=== PATIENT | male | born 1945 | race Caucasian/White ===

== ENCOUNTER → 2020-09-07 11:32 | Outpatient (REF) | payer OTHER, SELFPAY ==
--- NOTE | 2020-09-07 11:30 | CA_ITS ---
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 Normal LV systolic function with mild LVH with impaired relaxation filling pattern 2. Mildly dilated left atrium 3. Good repair of the mitral valve 4. Normal RV systolic pressure 5. No pericardial effusion Findings Left Ventricle Normal left ventricular size and systolic function. There is mildly increased left ventricular wall thickness. There is paradoxical septal motion consistent with post-operative status. Spectral Doppler is indicative of an impaired relaxation filling pattern. E/E prime ratio is between 8 and 15 consistent with indeterminate filling pressures. Right Ventricle Normal right ventricular cavity size and systolic function. Atria The left atrium is mildly dilated. There is lipomatous hypertrophy of the interatrial septum. There is no evidence of interatrial shunt. The right atrium is normal in size. Aortic Valve The aortic valve was not well visualized. There is mild thickening of the aortic valve. There is no aortic valve stenosis. There is trace (trivial) aortic valve regurgitation. Mitral Valve There is mild anterior and severe posterior mitral leaflet thickening. The posterior mitral leaflet is immobile. There is trace mitral valve regurgitation. There is no mitral valve stenosis. posterior leaflet was dissected in the past and findings are consistent with prior resection. Overall mitral valve repair appears good Pulmonic Valve The pulmonic valve was not well visualized. Tricuspid Valve Likely normal tricuspid valve structure and function. There is trace tricuspid valve regurgitation. The right ventricular systolic pressure is normal. There is no evidence of pulmonary hypertension. Great Vessels All visible segments of the aorta are normal in size. The pulmonary artery was not well visualized. Venous The inferior vena cava is normal in size and collapses greater than 50% with inspiration. Pericardium/Pleural There is no evidence of pericardial effusion. Prior Study Comparison No significant change compared to prior study dated: 09/03/2019. Measurements 2D Linear Measurements IVSd: 1.22 0.6-0.9/0.6-1.0 cm LVIDd: 3.92 3.9-5.3/4.2-5.9 cm LVIDd Index: 1.78 2.4-3.2/2.2-3.1 cm/m2 LVIDs: 2.58 2.0-3.6 cm LVPWd: 1.33 0.7-1.1 cm Ao Root: 3.30 2.1-3.5 cm LA Diam: 4.30 2.7-3.8/3.0-4.0 cm LAIDs Index: 1.95 1.5-2.3 cm/m2 LV Mass: 219.03 67-162/88-224 g LV Mass Index: 99.56 43-95/49-115 g/m2 LVOT Diam: 2.00 3.0+(-)1.3 cm 2D Systolic Function EF 4C: 66.00 >55% EF 2C: 53.80 >55% EF BiP: 60.20 >55% Mitral Valve MV Pk E: 0.93 MV PK A: 1.18 MV Decel Time: 333.00 E/A: 0.80 E'Lateral: 7.16 E'Medial: 4.25 E/E' Med: 21.90 E/E' Lat: 13.00 PHT: 97.00 MVA PHT: 2.27 Decel [place]: 2.80 Aortic Valve AoV Pk Edward: 1.22 AoV Pk Grad: 6.00 AI Pk Edward: 4.11 AI [place]: 1.34 LVOT LVOT Pk Edward: 0.78 LVOT Mn Edward: 0.59 LVOT VTI: 0.18 LVOT Pk Grad: 2.00 LVOT Mn Grad: 2.00 LVOT Diam: 2.00 LVOT Area: 3.14 Diastolic Function MV Pk E: 0.93 MV Pk A: 1.18 E/A: 0.80 E'Medial: 4.25 E/E' Med: 21.90 E' Laterial: 7.16 E/E' Lat: 13.00 Tricuspid Valve TR Pk Edward: 2.86 TR Pk Grad: 33.00 RA Press: 3.00 RVSP: 36.00 Great Vessels Aorta Ao Root-2D: 3.30 2.0-3.7 cm Ao Asc: 3.70 2.1-3.4 cm Updated in Other Vendor System with Status of Final Seven Alejandro MD electronically signed on 09/09/2020 11:31:25 AM with status of Final
== END ==
LOC: HO.CARD 11:32
PROVIDERS: PCP Internal Medicine; Visit Provider Internal Medicine Cardiovascular Disease
DX: I34.1 Nonrheumatic mitral (valve) prolapse (principal); I11.9 Hypertensive heart disease without heart failure
CPT/HCPCS: 93306

== ENCOUNTER → 2020-09-20 14:12 | Outpatient (BNVA) | payer OTHER, SELFPAY | PROVIDERS: PCP Internal Medicine; Referring Provider Internal Medicine; Visit Provider Internal Medicine Cardiovascular Disease | DX: I10 Essential (primary) hypertension (principal); Z95.2 Presence of prosthetic heart valve; Z79.82 Long term (current) use of aspirin | CPT/HCPCS: 93005 ==

== ENCOUNTER → 2021-07-18 08:43 | Outpatient (BNVA) | payer OTHER, SELFPAY | PROVIDERS: PCP Internal Medicine; Visit Provider Internal Medicine Cardiovascular Disease | DX: R09.89 Other specified symptoms and signs involving the circulatory and respiratory systems (principal); Z98.890 Other specified postprocedural states | CPT/HCPCS: 93005 ==

== ENCOUNTER → 2021-08-03 09:05 | Outpatient (BNVA) | payer OTHER, SELFPAY | PROVIDERS: PCP Physician Assistant Medical; Referring Provider Physician Assistant Medical; Visit Provider Internal Medicine Cardiovascular Disease ==

== ENCOUNTER 2021-08-11 07:46 | Outpatient (REF) | payer OTHER, SELFPAY ==
--- NOTE | ~2021-08-11 | US_ITS ---
EXAMINATION: US RETROPERITONEAL LIMITED (RENAL ONLY) US RENAL DOPPLER CLINICAL INFORMATION: Hypertension. Rule out renal artery stenosis. COMPARISON: None TECHNIQUE: Doppler, color and grayscale evaluation of the kidneys including waveform spectral analysis of the renal arteries. FINDINGS: RIGHT KIDNEY: 10.9 x 4.4 x 4.1 cm (SAG x AP x TRV). The kidney is normal in size, contour, and echogenicity. Renal cortical thickness is normal. There is a small 4 mm cyst in the upper pole. There is a 1 mm echogenic focus with twinkle artifact in the mid pole questionable for a tiny stone. No hydronephrosis. LEFT KIDNEY: 10.5 x 5.6 x 5 cm (SAG x AP x TRV). The kidney is normal in size, contour, and echogenicity. Renal cortical thickness is normal. No calculi or focal parenchymal lesions. No hydronephrosis. There is an arrhythmia. The visualized mid abdominal aorta is normal in caliber and demonstrates normal peak velocity of 89 cm/s. The right renal artery is patent. Right renal artery peak systolic velocities are normal measuring 127, 66 and 53 cm/s proximally, in the mid portion and distally. Right renal artery to aorta ratio is normal measuring 1.4. Resistive indices in the segmental renal arteries in the right kidney are normal measuring 0.7-0.8. The right renal vein is patent. The left renal artery is patent. Left renal artery peak systolic velocities are normal measuring 65, 80 and 62 cm/s proximally, in the mid portion and distally. Left renal artery to aorta ratio is normal measuring 0.9. Resistive indices in the segmental left renal arteries are normal measuring 0.7-0.8. The left renal vein is patent. US/US renal doppler IMPRESSION: Small right renal cyst and question tiny right renal stone. Otherwise, normal renal ultrasound. Normal renal Doppler exam. No evidence of renal artery stenosis.
--- NOTE | ~2021-08-11 | US_ITS ---
EXAMINATION: US RETROPERITONEAL LIMITED (RENAL ONLY) US RENAL DOPPLER CLINICAL INFORMATION: Hypertension. Rule out renal artery stenosis. COMPARISON: None TECHNIQUE: Doppler, color and grayscale evaluation of the kidneys including waveform spectral analysis of the renal arteries. FINDINGS: RIGHT KIDNEY: 10.9 x 4.4 x 4.1 cm (SAG x AP x TRV). The kidney is normal in size, contour, and echogenicity. Renal cortical thickness is normal. There is a small 4 mm cyst in the upper pole. There is a 1 mm echogenic focus with twinkle artifact in the mid pole questionable for a tiny stone. No hydronephrosis. LEFT KIDNEY: 10.5 x 5.6 x 5 cm (SAG x AP x TRV). The kidney is normal in size, contour, and echogenicity. Renal cortical thickness is normal. No calculi or focal parenchymal lesions. No hydronephrosis. There is an arrhythmia. The visualized mid abdominal aorta is normal in caliber and demonstrates normal peak velocity of 89 cm/s. The right renal artery is patent. Right renal artery peak systolic velocities are normal measuring 127, 66 and 53 cm/s proximally, in the mid portion and distally. Right renal artery to aorta ratio is normal measuring 1.4. Resistive indices in the segmental renal arteries in the right kidney are normal measuring 0.7-0.8. The right renal vein is patent. The left renal artery is patent. Left renal artery peak systolic velocities are normal measuring 65, 80 and 62 cm/s proximally, in the mid portion and distally. Left renal artery to aorta ratio is normal measuring 0.9. Resistive indices in the segmental left renal arteries are normal measuring 0.7-0.8. The left renal vein is patent. US/US renal BI IMPRESSION: Small right renal cyst and question tiny right renal stone. Otherwise, normal renal ultrasound. Normal renal Doppler exam. No evidence of renal artery stenosis.
== END 2021-08-11 07:47 | disposition home or self-care (01) ==
LOC: HO.US 07:46
PROVIDERS: PCP Physician Assistant Medical; Visit Provider Internal Medicine Cardiovascular Disease
DX: R09.89 Other specified symptoms and signs involving the circulatory and respiratory systems (principal)
CPT/HCPCS: 76775; 93975

== ENCOUNTER → 2021-08-23 12:57 | Outpatient (REF) | payer OTHER, SELFPAY ==
--- NOTE | 2021-08-23 | CA_ITS ---
Transthoracic Echocardiogram Patient (Last, First, Middle): Obinna Gonzalez N Gender: Male Date of : 1945 Age: 75 Procedure Date: 08/23/2021 Procedure Type: Transthoracic Echocardiogram Location: OP Height: 187.96 cm Weight: 88.91 kg BSA: 2.15 m2 Heart Rate: bpm BP: 148 / 82 mmHg Tool Programmer: DSIvonne Referring MD: Seven Alejandro MD Symptoms: OTHER SPEC. POSTPROCEDURAL STATES, MITRAL VALVE REPAIR Study Quality: Fair ECG Rhythm: Sinus Conclusions: - The left ventricular systolic function is normal. The visually estimated ejection fraction is between 65-70%. - There is mildly decreased right ventricular systolic function. - Status post mitral valve repair with normal valvular function. - There is mild dilatation of the ascending aorta measuring 4.00 cm. Findings Left Ventricle Normal left ventricular cavity size. There is mildly increased left ventricular wall thickness. The left ventricular systolic function is normal. The visually estimated ejection fraction is between 65-70%. There is no evidence of regional wall motion abnormalities. Diastolic function is indeterminate on the basis of available data. Right Ventricle Normal right ventricular cavity size. There is mildly decreased right ventricular systolic function. TAPSE 1.56cm. Atria Both atria are normal in size. Aortic Valve There is a normal trileaflet aortic valve. There is no aortic valve stenosis. Trace to mild aortic regurgitation. Mitral Valve There is trace mitral valve regurgitation. There is no mitral valve stenosis. Status post mitral valve repair. Pulmonic Valve The pulmonic valve was not well visualized. Tricuspid Valve There is trace tricuspid valve regurgitation. The pulmonary artery systolic pressure is normal. Great Vessels There is mild dilatation of the ascending aorta measuring 4.00 cm. Venous The inferior vena cava is normal in size and collapses greater than 50% with inspiration. Pericardium/Pleural There is no evidence of pericardial effusion. Prior Study Comparison Changes noted compared to prior study dated: 09/07/2020. See comments on ascending aorta. Slight increase in size. Measurements 2D Linear Measurements IVSd: 1.22 0.6-0.9/0.6-1.0 cm LVIDd: 3.59 3.9-5.3/4.2-5.9 cm LVIDd Index: 1.67 2.4-3.2/2.2-3.1 cm/m2 LVIDs: 2.33 2.0-3.6 cm LVPWd: 1.20 0.7-1.1 cm Ao Root: 3.50 2.1-3.5 cm LA Diam: 3.10 2.7-3.8/3.0-4.0 cm LAIDs Index: 1.44 1.5-2.3 cm/m2 LV Mass: 177.65 67-162/88-224 g LV Mass Index: 82.63 43-95/49-115 g/m2 LVOT Diam: 2.10 3.0+(-)1.3 cm 2D Systolic Function EF 4C: 64.30 >55% EF 2C: 59.70 >55% EF BiP: 62.00 >55% Mitral Valve MV Pk E: 0.84 MV PK A: 1.18 MV Decel Time: 282.00 E/A: 0.70 E'Lateral: 6.42 E'Medial: 4.57 E/E' Med: 18.40 E/E' Lat: 13.10 PHT: 83.00 MVA PHT: 2.65 Decel [place]: 2.98 Aortic Valve AoV Pk Edward: 1.14 AoV Pk Grad: 5.00 AI Pk Edward: 4.33 AI [place]: 2.05 LVOT LVOT Pk Edward: 0.92 LVOT Mn Edward: 0.64 LVOT VTI: 0.18 LVOT Pk Grad: 3.00 LVOT Mn Grad: 2.00 LVOT Diam: 2.10 LVOT Area: 3.46 Diastolic Function MV Pk E: 0.84 MV Pk A: 1.18 E/A: 0.70 E'Medial: 4.57 E/E' Med: 18.40 E' Laterial: 6.42 E/E' Lat: 13.10 Right Ventricle TAPSE (mm): 1.61 Tricuspid Valve TR Pk Edward: 2.10 TR Pk Grad: 18.00 RA Press: 3.00 RVSP: 21.00 Great Vessels Aorta Ao Root-2D: 3.50 2.0-3.7 cm Ao Asc: 4.00 2.1-3.4 cm Updated in Other Vendor System with Status of Final Tani Alcantara MD electronically signed on 08/25/2021 11:51:35 AM with status of Final
== END ==
LOC: HO.CARD 12:57
PROVIDERS: Visit Provider Internal Medicine Cardiovascular Disease
DX: Z98.890 Other specified postprocedural states (principal)
CPT/HCPCS: 93306

== ENCOUNTER → 2021-08-31 09:26 | Outpatient (BNVA) | payer OTHER, SELFPAY | PROVIDERS: PCP Physician Assistant Medical; Referring Provider Physician Assistant Medical; Visit Provider Internal Medicine Cardiovascular Disease ==

== ENCOUNTER → 2022-08-30 10:13 | Outpatient (REF) | payer OTHER, SELFPAY ==
--- NOTE | 2022-08-30 10:16 | CA_ITS ---
Transthoracic Echocardiogram Patient (Last, First, Middle): Obinna Gonzalez N Gender: Male Date of : 1945 Age: 76 Procedure Date: 08/30/2022 Procedure Type: Transthoracic Echocardiogram Location: OP Height: 187.96 cm Weight: 98.88 kg BSA: 2.25 m2 Heart Rate: bpm BP: 162 / 94 mmHg Aging Box Hand: JAREN Referring MD: Seven Alejandro MD Continuous Yarn Dyeing Machine Operator: Seven Alejandro MD Symptoms: Z98.890 - Other specified postprocedural states Study Quality: Adequate ECG Rhythm: Sinus Conclusions: - 1. Normal LV systolic function with impaired relaxation filling pattern next 2. Trivial aortic regurgitation 3. Good mitral valve repair 4. Normal RV systolic pressure 5. Mildly dilated ascending aorta at 4.1 cm 6. No gross pericardial effusion Findings Left Ventricle Normal left ventricular size, thickness, and systolic function. The visually estimated ejection fraction is between 55-60%. There is paradoxical septal motion consistent with post-operative status. Spectral Doppler is indicative of an impaired relaxation filling pattern. Right Ventricle Normal right ventricular cavity size. There is mildly decreased right ventricular systolic function. Atria The left atrium is likely dilated. There is no evidence of interatrial shunt. The right atrium is normal in size. Aortic Valve Normal aortic valve structure and function. There is no aortic valve stenosis. There is trace (trivial) aortic valve regurgitation. Mitral Valve There is mild anterior and severe posterior mitral leaflet thickening. The posterior mitral leaflet is immobile. There is trace mitral valve regurgitation. There is no mitral valve stenosis. possible mitral annuloplasty ring in place. The posterior leaflet is taken and immobilize suggestive of prior repair. Overall mitral valve repair appears to be good Pulmonic Valve The pulmonic valve is likely normal. Tricuspid Valve Normal tricuspid valve structure. There is trace tricuspid valve regurgitation. The right ventricular systolic pressure is normal. The right ventricular systolic pressure is 11 mmHg. Normal right atrial pressure. There is no evidence of pulmonary hypertension. Great Vessels There is mild dilatation of the ascending aorta. Venous The inferior vena cava is normal in size and collapses greater than 50% with inspiration. Pericardium/Pleural There is no evidence of pericardial effusion. Prior Study Comparison No significant change compared to prior study dated: 08/23/2021. Measurements 2D Linear Measurements IVSd: 1.23 0.6-0.9/0.6-1.0 cm LVIDd: 4.25 3.9-5.3/4.2-5.9 cm LVIDd Index: 1.89 2.4-3.2/2.2-3.1 cm/m2 LVIDs: 2.85 2.0-3.6 cm LVPWd: 1.25 0.7-1.1 cm LA Diam: 2.90 2.7-3.8/3.0-4.0 cm LAIDs Index: 1.29 1.5-2.3 cm/m2 LV Mass: 237.18 67-162/88-224 g LV Mass Index: 105.41 43-95/49-115 g/m2 LVOT Diam: 2.20 3.0+(-)1.3 cm 2D Systolic Function EF 4C: 56.50 >55% EF 2C: 49.80 >55% Mitral Valve MV VTI: 0.46 MV Pk Edward: 1.34 MV Mn Edward: 0.82 MV Pk Grad: 7.00 MV Mn Grad: 3.00 MV Pk E: 1.09 MV PK A: 1.18 MV Decel Time: 296.00 E/A: 0.90 E'Lateral: 6.83 E'Medial: 4.05 E/E' Med: 26.90 E/E' Lat: 16.00 PHT: 87.00 MVA PHT: 2.53 MVA Continuity: 2.16 Decel [place]: 3.70 Aortic Valve AoV Pk Edward: 1.03 AoV Mn Edward: 0.67 AoV VTI: 0.27 AoV Pk Grad: 4.00 Aov Mn Grad: 2.00 YASMANY Cont.VTI: 3.65 AI Pk Edward: 4.21 AI [place]: 2.25 LVOT LVOT Pk Edward: 0.96 LVOT Mn Edward: 0.60 LVOT VTI: 0.26 LVOT Pk Grad: 4.00 LVOT Mn Grad: 2.00 LVOT Diam: 2.20 LVOT Area: 3.80 Diastolic Function MV Pk E: 1.09 MV Pk A: 1.18 E/A: 0.90 E'Medial: 4.05 E/E' Med: 26.90 E' Laterial: 6.83 E/E' Lat: 16.00 Right Ventricle TAPSE (mm): 15.20 TVS' Edward: 7.80 Tricuspid Valve TR Pk Edward: 1.43 TR Pk Grad: 8.00 RA Press: 3.00 RVSP: 11.00 Great Vessels Aorta Sinus of Valsalva: 3.86 2.0-3.[address] [place]: 3.31 1.7-3.4 cm Ao Asc: 4.10 2.1-3.4 cm Updated in Other Vendor System with Status of Final Seven Alejandro MD electronically signed on 08/31/2022 10:52:43 AM with status of Final
== END ==
LOC: HO.CARD 10:13
PROVIDERS: Visit Provider Internal Medicine Cardiovascular Disease
DX: I71.20 Thoracic aortic aneurysm, without rupture, unspecified (principal); Z98.890 Other specified postprocedural states
CPT/HCPCS: 93306

== ENCOUNTER → 2022-10-03 10:08 | Outpatient (BNVA) | payer OTHER, SELFPAY | PROVIDERS: PCP Physician Assistant Medical; Referring Provider Physician Assistant Medical; Visit Provider Internal Medicine Cardiovascular Disease | DX: I10 Essential (primary) hypertension (principal); I71.20 Thoracic aortic aneurysm, without rupture, unspecified; R09.89 Other specified symptoms and signs involving the circulatory and respiratory systems | CPT/HCPCS: 93005 ==

== ENCOUNTER → 2023-09-04 12:19 | Outpatient (REF) | payer OTHER, SELFPAY ==
--- NOTE | 2023-09-04 12:23 | CA_ITS ---
Transthoracic Echocardiogram Patient (Last, First, Middle): Obinna Gonzalez N Gender: Male Date of : 1945 Age: 77 Procedure Date: 09/04/2023 Procedure Type: Transthoracic Echocardiogram Location: OP Height: 187.96 cm Weight: 107.96 kg BSA: 2.34 m2 Heart Rate: 69 bpm BP: 158 / 80 mmHg Pinball Machine Repairer: SB Referring MD: Seven Alejandro MD Surgical Aide: Seven Alejandro MD Symptoms: s/p Mitral valve repair Study Quality: Adequate ECG Rhythm: Sinus Conclusions: - 1. Normal LV ejection fraction 55-60% with impaired relaxation filling pattern 2. Mildly dilated left atrium 3. Good mitral valve repair 4. Mildly dilated ascending aorta at 4.1 cm with mild aortic regurgitation 5. Normal RV systolic pressure 6. No gross pericardial effusion Findings Left Ventricle Normal left ventricular size and systolic function. The visually estimated ejection fraction is between 55-60%. There is paradoxical septal motion consistent with post-operative status. Spectral Doppler is indicative of an impaired relaxation filling pattern. There is mild septal asymmetric hypertrophy. Right Ventricle Normal right ventricular cavity size and systolic function. Atria The left atrium is mildly dilated. There is no evidence of interatrial shunt. The right atrium is normal in size. Aortic Valve Normal aortic valve structure and function. There is no aortic valve stenosis. There is mild aortic valve regurgitation. Mitral Valve There is severe posterior mitral leaflet thickening. The posterior mitral leaflet is immobile. There is no mitral valve regurgitation. There is no mitral valve stenosis. good mitral valve repair Pulmonic Valve The pulmonic valve is likely normal. Tricuspid Valve Normal tricuspid valve structure. There is trace tricuspid valve regurgitation. The right ventricular systolic pressure is normal. The right ventricular systolic pressure is 28 mmHg. Normal right atrial pressure. There is no evidence of pulmonary hypertension. Great Vessels The pulmonary artery was not well visualized. There is mild dilatation of the ascending aorta measuring 4.10 cm. Venous The inferior vena cava is normal in size and collapses greater than 50% with inspiration. Pericardium/Pleural There is no evidence of pericardial effusion. Prior Study Comparison No significant change compared to prior study dated: 08/30/2022. Measurements 2D Linear Measurements IVSd: 1.56 0.6-0.9/0.6-1.0 cm LVIDd: 3.43 3.9-5.3/4.2-5.9 cm LVIDd Index: 1.47 2.4-3.2/2.2-3.1 cm/m2 LVIDs: 2.64 2.0-3.6 cm LVPWd: 1.05 0.7-1.1 cm LA Diam: 4.00 2.7-3.8/3.0-4.0 cm LAIDs Index: 1.71 1.5-2.3 cm/m2 LV Mass: 187.20 67-162/88-224 g LV Mass Index: 80.00 43-95/49-115 g/m2 LVOT Diam: 2.20 3.0+(-)1.3 cm 2D Systolic Function EF 4C: 48.10 >55% EF 2C: 55.00 >55% Mitral Valve MV VTI: 0.33 MV Pk Edward: 1.05 MV Mn Edward: 0.66 MV Pk Grad: 4.00 MV Mn Grad: 2.00 MV Pk E: 0.84 MV PK A: 1.10 MV Decel Time: 306.00 E/A: 0.80 E'Lateral: 6.31 E'Medial: 4.68 E/E' Med: 17.90 E/E' Lat: 13.30 PHT: 90.00 MVA PHT: 2.44 MVA Continuity: 2.09 Decel [place]: 2.74 Aortic Valve AoV Pk Edward: 1.13 AoV Pk Grad: 5.00 [place]: 3.37 AI Pk Edward: 4.25 AI [place]: 2.23 LVOT LVOT Pk Edward: 0.92 LVOT Mn Edward: 0.65 LVOT VTI: 0.18 LVOT Pk Grad: 3.00 LVOT Mn Grad: 2.00 LVOT Diam: 2.20 LVOT Area: 3.80 Diastolic Function MV Pk E: 0.84 MV Pk A: 1.10 E/A: 0.80 E'Medial: 4.68 E/E' Med: 17.90 E' Laterial: 6.31 E/E' Lat: 13.30 Right Ventricle TAPSE (mm): 19.90 TVS' Edward: 11.60 Tricuspid Valve TR Pk Edward: 2.52 TR Pk Grad: 25.00 RA Press: 3.00 RVSP: 28.00 Great Vessels Aorta Sinus of Valsalva: 3.70 2.0-3.5 cm Ao Asc: 4.10 2.1-3.4 cm Pulmonary Valve PV Pk Edward: 0.86 Peak PV Grad: 3.00 Updated in Other Vendor System with Status of Final Seven Alejandro MD electronically signed on 09/04/2023 3:09:04 PM with status of Final
== END ==
LOC: HO.CARD 12:19
PROVIDERS: PCP Physician Assistant Medical; Visit Provider Internal Medicine Cardiovascular Disease
DX: Z98.890 Other specified postprocedural states (principal)
CPT/HCPCS: 93306

== ENCOUNTER → 2023-09-04 12:23 | Outpatient (BNV) | payer OTHER, SELFPAY | PROVIDERS: PCP Physician Assistant Medical; Visit Provider Internal Medicine Cardiovascular Disease | DX: I34.89 Other nonrheumatic mitral valve disorders (principal); Z98.890 Other specified postprocedural states | CPT/HCPCS: 93306 ==

== ENCOUNTER 2023-09-24 10:39 | Outpatient (AMB) | payer OTHER, SELFPAY ==
--- NOTE | 2023-09-24 10:48 | A.OFFVIS_ITS ---
Intake Vital Signs 09/24/23 10:49 Height 6 ft 2 in Weight 233 lb 11.04 oz BMI 30.0 BP 140/70 H Blood Pressure Location Lt brachial Position Sitting Pulse 68 Intake Visit Reasons: 1 yr s/p echo Intake Note: 1 year follow-up with ekg after echo was having some high bp and chest pain in Jun pcp order stress echo at [facility] feeling better Water Superintendent Required: No Allergies No Known Drug Allergies [NO KNOWN DRUG ALLERGIES] Allergy (Unknown, Unverified 07/21/20 17:09) NONE Medication List - Last Reconciled 09/24/23 by Seven Alejandro MD aspirin (Adult Low Dose Aspirin) 81 mg PO DAILY hydrochlorothiazide 12.5 mg PO DAILY lisinopril 30 mg PO DAILY lisinopril 40 mg PO DAILY metoprolol succinate ER 50 mg PO DAILY nifedipine ER 30 mg PO DAILY HPI HPI Comments History of Present Illness Details Obinna comes for follow-up. Recently was having issue with blood pressure control. Also was having left thoracic cage pain. Underwent a stress echocardiogram at outside facility with at low to moderate workload was negative for ischemia. Patient subsequently had uptitration of his lisinopril dose and subsequently addition of nifedipine. This has led to better blood pressure control. He remains active. Recent echocardiogram shows normal LV systolic function with good mitral valve repair and mild ascending aortic aneurysm. Taking all his medications regularly. [facility] Medical History (Updated 10/03/22 @ 10:48 by Seven Alejandro MD) Ascending aortic aneurysm Labile blood pressure Postoperative atrial fibrillation Mitral regurgitation Mitral valve prolapse HTN (hypertension) Surgical History H/O mitral valve repair Family History Father No problems noted. Mother No problems noted. Patient Tobacco Use Status: Former Tobacco user Review of Systems Const Denies chills, Denies fatigue, Denies fever(s), Denies frequent falls, Denies weakness, Denies weight gain and Denies weight loss ENT Denies dizziness Card Denies chest pain, Denies leg edema, Denies lightheadedness, Denies palpitations, Denies dyspnea, Denies dyspnea on exertion, Denies orthopnea and Denies other (loss of consciousness) Resp Denies cough, Denies dyspnea and Denies dyspnea on exertion GI Denies hematochezia and Denies change in stool character Musc Denies abnormal gait, Denies muscle weakness, Denies numbness, Denies radiating pain into limb and Denies tingling Neuro Denies abnormal gait, Denies dizziness, Denies frequent falls, Denies numbness, Denies tingling and Denies weakness Endo Denies fatigue and Denies palpitations Physical Exam Vital Signs: Last Vital Signs Pulse 68 09/24/23 10:49 BP 140/70 H 09/24/23 10:49 BMI result Body Mass Index 30.0 Const General: cooperative, comfortable, no acute distress, alert and awake Nutritional Appearance: overweight Orientation/consciousness: patient oriented x3 Limitations: no limitations HEENT Head: Yes normal to inspection, Yes normocephalic and Yes atraumatic Eyes General: appearance normal, both eyes and all related structures Neck Neck: Yes full ROM, Yes trachea midline, Yes supple and Yes no JVD Chest Chest palpation & inspection: abnormal inspection of the chest funnel chest (pectus excavatum) Resp Effort & Inspection: normal respiratory effort Auscultation: clear to auscultation bilaterally Cardio Jugular venous distension: no JVD Palpation: normal PMI Rate: regular rate Rhythm: regular rhythm Heart sounds: S1 normal heart sound present and S2 normal heart sound present Peripheral pulses: Peripheral pulses 2+ throughout GI Auscultation: normal bowel sounds Skin General skin exam: no rashes or lesions noted Neuro General: patient oriented x3 and no focal motor deficits Extrem General: Yes no clubbing, cyanosis or edema Psych Appearance: grossly normal Affect: Anxious affect present Office Procedures EKG Details: EKG shows normal sinus rhythm first-degree AV block with LVH with repolarization abnormality [id number], Complete Assessment & Plan Assessment & Plan (1) H/O mitral valve repair: Comment: Posterior mitral leaflet resection with annular ring for severe mitral valve prolapse and severe regurgitation. Code(s): Z98.890 - Other specified postprocedural states Plan: Patient with good mitral valve repair, remote. Repair is looking good. Continue aggressive risk factor modification. Continue aspirin therapy. SBE prophylaxis as per ACC/aha guidelines. (2) Ascending aortic aneurysm: Comment: 4 cm by echocardiogram August 2021 Code(s): I71.2 - Thoracic aortic aneurysm, without rupture Plan: Ascending aortic aneurysm which has remained stable. No interventions required per se for the same. Continue aggressive blood pressure control. Continue monitor by echocardiogram on annual basis. Avoidance of sudden strenuous isometric exercise was discussed. (3) HTN (hypertension): Code(s): I10 - Essential (primary) hypertension Plan: Hypertension is not well optimized on current therapy with addition of nifedipine. Continue the same. Importance of good blood pressure control was discussed advised low-salt diet. Advised stress mitigation strategies. Advised to monitor blood pressure at home maintain a log. Goal blood pressure less than 130/84. Will follow up in the clinic in 1 year's time, sooner p.r.n.. Thank you for allowing me to partake in his care Orders: Orders CA echo transthoracic complete 50 Weeks Z98.890 - Other specified postprocedural states Coding Level of Care Code Est Pt Level 4 (49647) Diagnoses H/O mitral valve repair Z98.890 Ascending aortic aneurysm I71.2 HTN (hypertension) I10 CPT Codes EKG - CPT: 36399-[id number], Complete ([id number])
[2023-09-24 10:49] VITALS: BP 140/70; PULSE 68
== END 2023-09-24 11:26 | disposition home or self-care (01) ==
PROVIDERS: Visit Provider Internal Medicine Cardiovascular Disease
DX: Z98.890 Other specified postprocedural states (principal); I71.20 Thoracic aortic aneurysm, without rupture, unspecified; I10 Essential (primary) hypertension
CPT/HCPCS: 93010; 99214

== ENCOUNTER → 2023-09-24 10:39 | Outpatient (BNVA) | payer OTHER, SELFPAY | PROVIDERS: Visit Provider Internal Medicine Cardiovascular Disease | DX: I71.20 Thoracic aortic aneurysm, without rupture, unspecified (principal); I10 Essential (primary) hypertension; Z98.890 Other specified postprocedural states | CPT/HCPCS: 93005 ==

== ENCOUNTER → 2024-09-04 10:40 | Outpatient (REF) | payer OTHER, SELFPAY ==
--- NOTE | 2024-09-04 10:43 | CA_ITS ---
Transthoracic Echocardiogram Patient (Last, First, Middle): Obinna Gonzalez N Gender: Male Date of : 1945 Age: 78 Procedure Date: 09/04/2024 Procedure Type: Transthoracic Echocardiogram Location: OP Height: 187. cm Weight: 104.33 kg BSA: 2.30 m2 Heart Rate: bpm BP: 148 / 90 mmHg Ropewalk Rope Maker: PRECIOUS Referring MD: Seven Alejandro MD Symptoms: Z98.890 - Other specified postprocedural states Study Quality: Fair ECG Rhythm: Sinus Conclusions: - The left ventricular systolic function is normal. The calculated ejection fraction is 59% by biplane method. - s/p mitral valve repair. Normal valve function. - There is mild aortic valve regurgitation. - There is mild dilatation of the ascending aorta measuring 4.10 cm. Findings Left Ventricle Normal left ventricular cavity size. There is mildly increased left ventricular wall thickness. The left ventricular systolic function is normal. The calculated ejection fraction is 59% by biplane method. There is no evidence of regional wall motion abnormalities. Spectral Doppler is indicative of a pseudonormal filling pattern. Right Ventricle Normal right ventricular cavity size. There is normal right ventricular systolic function. Atria Both atria are normal in size. Aortic Valve There is mild calcification of the aortic valve. There is no aortic valve stenosis. There is mild aortic valve regurgitation. Mitral Valve There is trace mitral valve regurgitation. There is no mitral valve stenosis. s/p mitral valve repair. Normal valve function. Pulmonic Valve The pulmonic valve is likely normal. Tricuspid Valve There is mild tricuspid valve regurgitation. There is no evidence of pulmonary hypertension. Great Vessels There is mild dilatation of the ascending aorta measuring 4.10 cm. Top normal ascending aortic size at 3.8cm. Venous The inferior vena cava is normal in size and collapses greater than 50% with inspiration. Pericardium/Pleural There is no evidence of pericardial effusion. Prior Study Comparison No significant change compared to prior study dated: 09/04/2023. Measurements 2D Linear Measurements IVSd: 1.14 0.6-0.9/0.6-1.0 cm LVIDd: 4.37 3.9-5.3/4.2-5.9 cm LVIDd Index: 1.90 2.4-3.2/2.2-3.1 cm/m2 LVIDs: 2.86 2.0-3.6 cm LVPWd: 1.26 0.7-1.1 cm Ao Root: 3.70 2.1-3.5 cm LA Diam: 4.40 2.7-3.8/3.0-4.0 cm LAIDs Index: 1.91 1.5-2.3 cm/m2 LV Mass: 235.91 67-162/88-224 g LV Mass Index: 102.57 43-95/49-115 g/m2 LVOT Diam: 2.10 3.0+(-)1.3 cm 2D Systolic Function EF 4C: 57.70 >55% EF 2C: 60.70 >55% EF BiP: 58.90 >55% Mitral Valve MV VTI: 0.44 MV Pk Edward: 1.22 MV Mn Edward: 0.73 MV Pk Grad: 6.00 MV Mn Grad: 3.00 MV Pk E: 1.32 MV PK A: 1.07 MV Decel Time: 264.00 E/A: 1.20 E'Lateral: 6.85 E'Medial: 4.24 E/E' Med: 31.10 E/E' Lat: 19.30 PHT: 77.00 MVA PHT: 2.86 MVA Continuity: 1.66 Decel [place]: 5.02 Aortic Valve AoV Pk Edward: 1.28 AoV Mn Edward: 1.02 AoV VTI: 0.30 AoV Pk Grad: 7.00 Aov Mn Grad: 5.00 YASMANY Cont.VTI: 2.49 AI Pk Edward: 4.71 AI [place]: 1.66 LVOT LVOT Pk Edward: 0.98 LVOT Mn Edward: 0.72 LVOT VTI: 0.21 LVOT Pk Grad: 4.00 LVOT Mn Grad: 2.00 LVOT Diam: 2.10 LVOT Area: 3.46 Diastolic Function MV Pk E: 1.32 MV Pk A: 1.07 E/A: 1.20 E'Medial: 4.24 E/E' Med: 31.10 E' Laterial: 6.85 E/E' Lat: 19.30 Right Ventricle TAPSE (mm): 15.00 TVS' Edward: 13.00 Tricuspid Valve TR Pk Edward: 1.86 TR Pk Grad: 14.00 RA Press: 3.00 RVSP: 17.00 Great Vessels Aorta Ao Root-2D: 3.70 2.0-3.7 cm Ao Asc: 4.10 2.1-3.4 cm Ao Arch: 3.80 Pulmonary Valve PV Pk Edward: 0.96 Peak PV Grad: 4.00 Updated in Other Vendor System with Status of Final Tain Alcantara MD electronically signed on 09/05/2024 1:57:35 PM with status of Final
== END ==
LOC: HO.CARD 10:40
PROVIDERS: PCP Physician Assistant Medical; Visit Provider Internal Medicine Cardiovascular Disease
DX: Z98.890 Other specified postprocedural states (principal)
CPT/HCPCS: 93306

== ENCOUNTER → 2024-09-04 10:43 | Outpatient (BNV) | payer OTHER, SELFPAY | PROVIDERS: PCP Physician Assistant Medical; Visit Provider Internal Medicine | DX: I35.1 Nonrheumatic aortic (valve) insufficiency (principal); I36.1 Nonrheumatic tricuspid (valve) insufficiency; Z98.890 Other specified postprocedural states | CPT/HCPCS: 93306 ==

== ENCOUNTER 2024-09-28 14:56 | Outpatient (AMB) | payer OTHER, SELFPAY ==
--- NOTE | 2024-09-28 15:03 | A.OFFVIS_ITS ---
Vital Signs 09/28/24 15:04 Height 6 ft 2 in Weight 229 lb 4.492 oz BMI 29.4 BP 148/80 H Blood Pressure Location Lt brachial Position Sitting Pulse 88 Intake Visit Reasons: 1 yr f/up s/p echo Intake Note: 1 year follow-up after echo with ekg heart ok Banking Consultant Required: No Allergies No Known Drug Allergies [NO KNOWN DRUG ALLERGIES] Allergy (Unknown, Unverified 07/21/20 17:09) NONE Medication List - Last Reconciled 09/28/24 by Seven Alejandro MD aspirin (Adult Low Dose Aspirin) 81 mg PO DAILY hydrochlorothiazide 12.5 mg PO DAILY lisinopril 40 mg PO DAILY metoprolol succinate ER 50 mg PO DAILY nifedipine ER 30 mg PO DAILY HPI Comments Details: Obinna comes for follow-up. No obvious cardiac symptoms to report. Recent echocardiogram shows preserved LV ejection fraction with normally functioning mitral valve repair with mildly enlarged thoracic aorta. No change in symptoms. Complain of right upper quadrant discomfort. Has been seen by PCP. An ordered abdominal ultrasound. He said this is bothering him a lot. No fever or chills. No nausea or vomiting. Discussed with him possibly going to emergency room as he appears to be in lot distress related to the pain. He said he will wait for tomorrow. Denies any heart failure symptoms. Denies any lightheadedness, syncope. Blood pressures been well controlled. [facility] Medical History Ascending aortic aneurysm Labile blood pressure Postoperative atrial fibrillation Mitral regurgitation Mitral valve prolapse HTN (hypertension) Surgical History H/O mitral valve repair Family History Father No problems noted. Mother No problems noted. Social History Patient Tobacco Use Status: Former Tobacco user Review of Systems Const Denies chills, Denies fatigue, Denies fever(s), Denies frequent falls, Denies weakness, Denies weight gain and Denies weight loss ENT Denies dizziness Card Denies chest pain, Denies leg edema, Denies lightheadedness, Denies palpitations, Denies dyspnea, Denies dyspnea on exertion, Denies orthopnea and Denies other (loss of consciousness) Resp Denies cough, Denies dyspnea and Denies dyspnea on exertion GI Denies hematochezia and Denies change in stool character Musc Denies abnormal gait, Denies muscle weakness, Denies numbness, Denies radiating pain into limb and Denies tingling Neuro Denies abnormal gait, Denies dizziness, Denies frequent falls, Denies numbness, Denies tingling and Denies weakness Endo Denies fatigue and Denies palpitations Physical Exam Vital Signs: Last Vital Signs Pulse 88 09/28/24 15:04 BP 148/80 H 09/28/24 15:04 BMI result Body Mass Index 29.4 Const General: cooperative, comfortable, no acute distress, alert and awake Nutritional Appearance: overweight Orientation/consciousness: patient oriented x3 Limitations: no limitations HEENT Head: Yes normal to inspection, Yes normocephalic and Yes atraumatic Eyes General: appearance normal, both eyes and all related structures Neck Neck: Yes full ROM, Yes trachea midline, Yes supple and Yes no JVD Chest Chest palpation & inspection: abnormal inspection of the chest funnel chest (pectus excavatum) Resp Effort & Inspection: normal respiratory effort Auscultation: clear to auscultation bilaterally Cardio Jugular venous distension: no JVD Palpation: normal PMI Rate: regular rate Rhythm: regular rhythm Heart sounds: S1 normal heart sound present and S2 normal heart sound present Peripheral pulses: Peripheral pulses 2+ throughout GI Auscultation: normal bowel sounds Skin General skin exam: no rashes or lesions noted Neuro General: patient oriented x3 and no focal motor deficits Extrem General: Yes no clubbing, cyanosis or edema Psych Appearance: grossly normal Affect: Anxious affect present Office Procedures EKG Details: EKG shows normal sinus rhythm with first-degree AV block with LVH nonspecific ST T wave changes [id number], Complete Assessment & Plan Assessment & Plan (1) H/O mitral valve repair: Comment: Posterior mitral leaflet resection with annular ring for severe mitral valve prolapse and severe regurgitation. Code(s): Z98.890 - Other specified postprocedural states Category: Surgical Plan: History of mitral valve repair for severe mitral valve prolapse and regurgitation. Has done very well over many years. Continue SBE prophylaxis as per ACC/aha guidelines. Continue low-dose aspirin therapy. Continue aggressive risk factor modification. Follow-up echocardiogram in 1 year's time. (2) Ascending aortic aneurysm: Comment: 4 cm by echocardiogram August 2021 Code(s): I71.2 - Thoracic aortic aneurysm, without rupture Category: Medical Plan: Mild thoracic aortic aneurysm at 4.1 cm. No significant change in size. Does not require any intervention from surgical perspective. Continue aggressive medical intervention with aggressive blood pressure control. Currently well o ptimized on metoprolol, nifedipine, lisinopril hydrochlorothiazide therapy. Goal blood pressure less than 130/84. Advised to avoid sudden strenuous isometric exercise. Continue to maintain aggressive lifestyle modification with regular physical activity and weight loss program. Measure blood pressure at home maintain a log. Will follow up in the clinic in 1 year's time, sooner p.r.n.. Thank you for allowing me to partake in his care Orders: Orders CA echo transthoracic complete 1 Year Z98.890 - Other specified postprocedural states Coding Level of Care Code Est Pt Level 4 (07896) Complex EM visit Add On G2211 Diagnoses H/O mitral valve repair Z98.890 Ascending aortic aneurysm I71.2 CPT Codes EKG - CPT: 64554-[id number], Complete ([id number])
[2024-09-28 15:04] VITALS: BP 148/80; PULSE 88; BMI 29.4
== END 2024-09-28 15:30 | disposition home or self-care (01) ==
PROVIDERS: PCP Physician Assistant Medical; Visit Provider Internal Medicine Cardiovascular Disease
DX: Z98.890 Other specified postprocedural states (principal); I71.20 Thoracic aortic aneurysm, without rupture, unspecified
CPT/HCPCS: 93010; 99214

== ENCOUNTER → 2024-09-28 14:56 | Outpatient (BNVA) | payer OTHER, SELFPAY | PROVIDERS: PCP Physician Assistant Medical; Visit Provider Internal Medicine Cardiovascular Disease | DX: I71.20 Thoracic aortic aneurysm, without rupture, unspecified (principal); Z79.899 Other long term (current) drug therapy; Z98.890 Other specified postprocedural states | CPT/HCPCS: 93005 ==

== ENCOUNTER 2025-05-10 12:39 | Outpatient (REF) | payer OTHER, SELFPAY ==
--- OUTSIDE RECORDS SUMMARY | 2025-05-10 13:13 | XMS_ITS | Patient Health Record ---
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 Name Role Phone Douglas Rashid Primary Care Provider Unav ailable José LuisHakeem eric Unavailable [phone] Bubba Avendaño Unavailable [phone] Cecy Pike Unavailable [phone] Allergies Allergen (clinical drug ingredient) Drug/Non Drug Allergy documented on EMR Reaction Allergy Type Onset Date Status poision citlali (uncoded) hay fever Allergy Active Reason For Referral No Information Medications Medication SIG (Take, Route, Frequency, Duration) Notes Start Date End Date Status Aspirin 81 MG as directed Orally Active hydroCHLOROthiazide 12.5 MG as directed Orally Active NIFEdipine Active Custom Orthotics as directed 06/08/2024 Active Ammonium Lactate 12 % 1 application Externally to affected areas of dry skin to feet except for between the toes Twice a day; Duration: 30 days Active Lisinopril 40 MG 1 tablet Orally Active Metoprolol Succinate ER 50 MG 1 tablet Oral Active LORazepam 0.5 MG as directed Orally Not-Taking Immunizations Vaccine Route Administration Date Status Comme nts COVID-19 Pfizer BioNTech Vaccine Unknown 10/17/2021 Administered 1st 12/12/20 2nd 01/11/21 Social History Tobacco Use: Social History Observation Description Date Details (start date - stop date) Never Smoker NA - NA Tobacco use other than smoking: Question Answer Notes Are you an other tobacco user? No Tobacco Control (Standard) Question Answer Notes Tobacco use: Nonsmoker AUDIT-C (Standard) Question Answer Notes Did you have a drink containing alcohol in the p ast year? No Points 0 Interpretation Negative Problems Problem Type SNOMED Code ICD Code Onset Dates Problem Status W/U Status Risk Notes Problem Bilateral atherosclerosis of arteries of lower limbs (disorder) ([id number] ) Atherosclerosis of [place] artery of both lower extremities, with unspecified presence of clinical manifestation (I70.203) Active confirmed Q7(A), Q8(2B), Q9(1B,2 C) Vital Signs Blood pressure diastolic 65 mm Hg 04/09/2025 Height 6ft 2in in 04/09/2025 Blood pressure systolic 135 mm Hg 04/09/2025 Weight 218 lbs 04/09/2025 BMI 27.99 kg/m2 04/09/2025 Procedures Procedure Date Ordered Date Performed Result Body Sit e 53036-BOGGFGV NAIL, 6 OR MORE 10/14/2024 N/A 11587-XHOB SKIN LESIONS, OVER 4 10/14/2024 N/A 50905-UAXPDEP NAIL, 6 OR MORE 01/08/2025 N/A 73950-DBHR SKIN LESIONS, OVER 4 01/08/2025 N/A 56889-MUJOGCR NAIL, 6 OR MORE 04/09/2025 N/A 10444-CWSD SKIN LESIONS, OVER 4 04/09/2025 N/A Encounters Encounter Location Date Provider Diagnosis [facility] [address] [address] 06/08/2024 Bubba Avendaño Ingrowing nail L60.0 ; Pain in left foot M79.672 ; Pain in right foot M79.671 ; Tinea unguium B35.1 ; Pain in right toe(s) M79.674 ; Pain in left toe(s) M79.675 ; Metatarsalgia, right foot M77.41 ; Other hammer toe(s) (acquired), right foot M20.41 ; Primary osteoarthritis, right ankle and foot M19.071 ; Metatarsalgia, left foot M77.42 ; Other hammer toe(s) (acquired), left foot M20.42 ; Venous insufficiency of left leg I87.2 and Plantar fascial fibromatosis M72.2 [facility] [address] 07/13/2024 Bubba Avendaño Ingrowing nail L60.0 ; Pain in left foot M79.672 ; Pain in right foot M79.671 ; Tinea unguium B35.1 ; Pain in right toe(s) M79.674 ; Pain in left toe(s) M79.675 ; Metatarsalgia, right foot M77.41 ; Other hammer toe(s) (acquired), right foot M20.41 ; Primary osteoarthritis, right ankle and foot M19.071 ; Metatarsalgia, left foot M77.42 ; Other hammer toe(s) (acquired), left foot M20.42 ; Venous insufficiency of left leg I87.2 and Plantar fascial fibromatosis M72.2 [facility] [address] [facility] [address] [place] [address] 10/14/2024 Hakeem José Luis Atherosclerosis of [place] artery of both lower extremities, with unspecified presence of clinical manifestation I70.203 ; Tinea unguium B35.1 ; Pain in right toe(s) M79.674 ; Pain in left toe(s) M79.675 and Xerosis of skin L85.[address] [address] 01/08/2025 Hakeem José Luis Atherosclerosis of [place] artery of both lower extremities, with unspecified presence of clinical manifestation I70.203 ; Tinea unguium B35.1 ; Pain in right toe(s) M79.674 ; Pain in left toe(s) M79.675 and Xerosis of skin L85.[address] [address] 04/09/2025 Hakeem José Luis Atherosclerosis of [place] artery of both lower extremities, with unspecified presence of clinical manifestation I70.203 ; Tinea unguium B35.1 ; Pain in right toe(s) M79.674 and Pain in left toe(s) M79.[address] [address] 06/08/2024 Bubba Avendaño [address] [address] 07/13/2024 Bubba Avendaño Assessments Encounter Date Diagnosis (ICD Code) Assessment Notes Treatment Notes Treatment Clinical Notes Section Notes 06/08/2024 Ingrowing nail (ICD-10 - L60.0) 06/08/2024 Pain in left foot (ICD-10 - M79.672) 07/13/2024 Ingrowing nail (ICD-10 - L60.0) 07/13/2024 Pain in left foot (ICD-10 - M79.672) 10/14/2024 Atherosclerosis of [place] artery of both lower extremities, with unspecified presence of clinical manifestation (ICD-10 - I70.203) Q7(A), Q8(2B), Q9(1B,2C) 01/08/2025 Tinea unguium (ICD-10 - B35.1) 01/08/2025 Atherosclerosis of [place] artery of both lower extremities, with unspecified presence of clinical manifestation (ICD-10 - I70.203) Q7(A), Q8(2B), Q9(1B,2C) 04/09/2025 Tinea unguium (ICD-10 - B35.1) 04/09/2025 Atherosclerosis of [place] artery of both lower extremities, with unspecified presence of clinical manifestation (ICD-10 - I70.203) Q7(A), Q8(2B), Q9(1B,2C) 04/09/2025 Pain in right toe(s) (ICD-10 - M79.674) 01/08/2025 Pain in right toe(s) (ICD-10 - M79.674) 10/14/2024 Tinea unguium (ICD-10 - B35.1) 07/13/2024 Pain in right foot (ICD-10 - M79.671) 06/08/2024 Pain in right foot (ICD-10 - M79.671) 06/08/2024 Tinea unguium (ICD-10 - B35.1) 07/13/2024 Tinea unguium (ICD-10 - B35.1) 10/14/2024 Pain in right toe(s) (ICD-10 - M79.674) 01/08/2025 Pain in left toe(s) (ICD-10 - M79.675) 04/09/2025 Pain in left toe(s) (ICD-10 - M79.675) 01/08/2025 Xerosis of skin (ICD-10 - L85.3) 10/14/2024 Pain in left toe(s) (ICD-10 - M79.675) 07/13/2024 Pain in right toe(s) (ICD-10 - M79.674) 06/08/2024 Pain in right toe(s) (ICD-10 - M79.674) 06/08/2024 Pain in left toe(s) (ICD-10 - M79.675) 07/13/2024 Pain in left toe(s) (ICD-10 - M79.675) 10/14/2024 Xerosis of skin (ICD-10 - L85.3) 07/13/2024 Metatarsalgia, right foot (ICD-10 - M77.41) 06/08/2024 Metatarsalgia, right foot (ICD-10 - M77.41) 06/08/2024 Other hammer toe(s) (acquired), right foot (ICD-10 - M20.41) 07/13/2024 Other hammer toe(s) (acquired), right foot (ICD-10 - M20.41) 07/13/2024 Primary osteoarthritis, right ankle and foot (ICD-10 - M19.071) 06/08/2024 Primary osteoarthritis, right ankle and foot (ICD-10 - M19.071) 06/08/2024 Metatarsalgia, left foot (ICD-10 - M77.42) 07/13/2024 Metatarsalgia, left foot (ICD-10 - M77.42) 07/13/2024 Other hammer toe(s) (acquired), left foot (ICD-10 - M20.42) 06/08/2024 Other hammer toe(s) (acquired), left foot (ICD-10 - M20.42) 06/08/2024 Venous insufficiency of left leg (ICD-10 - I87.2) 07/13/2024 Venous insufficiency of left leg (ICD-10 - I87.2) 07/13/2024 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) 06/08/2024 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) Plan Of Treatment Pending Test Test Name Order Date X ray : Foot, left 3V 01/29/2022 X ray : Foot, right 3V 03/24/2020 17432-CJIONRK NAIL, 6 OR MORE 10/14/2024 77363-RBTIMFL NAIL, 6 OR MORE 01/08/2025 13254-YAPOTBR NAIL, 6 OR MORE 04/09/2025 14410 I&D ABSCESS- SIMPLE,SINGLE 022 61093-IQRP SKIN LESIONS, OVER 4 10/14/20 24 73858-OVZL SKIN LESIONS, OVER 4 04/09/20 25 09593-KFPC SKIN LESIONS, OVER 4 01/09/20 25 Next Appt Details Provider Name:Hakeem Ordonez , 07/16/2025 01:00:00 PM, [address] [place], [address], Insurance Providers Payer Name Payer Address Payer Phone Subscriber Number Group Number Insured Name Patient Relationship to Insured Coverage Start Date Coverage End Date [facility] ([facility]) [address] [place] [phone] [id number] [facility] Obinna Phan Self - patient is the insured Medical (General) History Medical History History ICD Code Anxiety Arthritis Back,Hip,and Knee pain Depression Hiatal hernia High blood pressure Sciatica Warts Measles Mumps Chicken pox Transfusions Kidney disease- stage 3 Kidney disease Surgical History Surgery Date(Month/Year) mitral valve repair 2011
--- OUTSIDE RECORDS SUMMARY | 2025-05-10 13:13 | XMS_ITS | Clinical Summary ---
Author Organization [address] Address [address] [place] [phone] Phone Care Team Providers Care Waitstaff Captain Name Role Phone Douglas Aguero Primary Care Provider [phone] Allergies Active Allergy Reactions Criticality Noted Date Comments Hay Fever And Allergy Relief 025 Medications hydroCHLOROthiazi de (MICROZIDE) 12.5 mg capsule Take 1 capsule (12.5 mg total) by mouth 1 (one) time each day in the morning. 3 Active NIFEdipine (ADALAT CC) 30 mg 24 hr tablet Take 1 tablet (30 mg total) by mouth 1 (one) time each day. 3 Active aspirin 81 mg EC tablet Take 1 tablet (81 mg total) by mouth 1 (one) time each day. Active multivitamin with minerals tablet Take 1 tablet by mouth 1 (one) time each day. Active lisinopril (PRINIVIL,ZESTRIL ) 40 mg tablet TAKE 1 TABLET BY MOUTH EVERY DAY 90 tablet 3 5 Active metoprolol succinate (TOPROL-XL) 50 mg 24 hr tablet TAKE 1 TABLET BY MOUTH EVERY DAY 90 tablet 3 5 Active cholecalciferol (VITAMIN D-3) 25 mcg (1,000 unit) capsuleIndication s:Secondary hypertension,Paro xysmal atrial fibrillation (CMS/HCC V24, CMS/HCC V28),Stage 3 chronic kidney disease, unspecified whether stage 3a or 3b CKD (CMS/HCC V24, CMS/HCC V28),Benign prostatic hyperplasia with lower urinary tract symptoms, symptom details unspecified,Anxie ty,[place] (hard of hearing),Chronic cough Take 1 capsule (1,000 Units total) by mouth 1 (one) time each day. 90 capsule 3 5 Active Active Problems Problem Noted Date Diagnosed Date CKD (chronic kidney disease) stage 3, GFR 30-59 ml/min ([facility] V24, [facility] V28) 02/16/2022 Assessment & Plan (09/25/2024 2:54 PM EST): Orders: Thyroid stimulating hormone with reflex to free t4 and free t3; Future US Abdomen Complete; Future Helicobacter pylori breath test; Future Lipase; Future Amylase; Future Sedimentation rate; Future C-reactive protein; Future Snoring 08/08/2021 Overview (08/14/2024): 07/2021 Home Sleep Study did not reveal sleep apnea or nocturnal hypoxia. Varicose veins of left lower extremity 9 Acute left-sided low back pain with left-sided s ciatica 04/13/2018 Hammer toes of both feet 02/25/2017 Paroxysmal atrial fibrillation ([facility] V24, [facility] V28) 12/28/2014 Assessment & Plan (09/25/2024 2:54 PM EST): Orders: Thyroid stimulating hormone with reflex to free t4 and free t3; Future US Abdomen Complete; Future Helicobacter pylori breath test; Future Lipase; Future Amylase; Future Sedimentation rate; Future C-reactive protein; Future Erectile dysfunction 12/02/2013 BPH (benign prostatic hyperplasia) 02/12/2012 Assessment & Plan (09/25/2024 2:54 PM EST): Orders: Thyroid stimulating hormone with reflex to free t4 and free t3; Future US Abdomen Complete; Future Helicobacter pylori breath test; Future Lipase; Future Amylase; Future Sedimentation rate; Future C-reactive protein; Future HTN (hypertension) 08/30/2011 Assessment & Plan (09/25/2024 2:54 PM EST): Orders: Thyroid stimulating hormone with reflex to free t4 and free t3; Future US Abdomen Complete; Future Helicobacter pylori breath test; Future Lipase; Future Amylase; Future Sedimentation rate; Future C-reactive protein; Future Anxiety 08/30/2011 Assessment & Plan (09/25/2024 2:54 PM EST): Orders: Thyroid stimulating hormone with reflex to free t4 and free t3; Future US Abdomen Complete; Future Helicobacter pylori breath test; Future Lipase; Future Amylase; Future Sedimentation rate; Future C-reactive protein; Future Encounters Date Type Department Care Team Description 04/02/2025 12:45 PM EDT Office Visit Adult Medicine [facility] [address] [place] [phone] Douglas Aguero PA Secondary hypertension (Primary Dx); Paroxysmal atrial fibrillation (CMS/HCC V24, CMS/HCC V28); Stage 3 chronic kidney disease, unspecified whether stage 3a or 3b CKD (CMS/HCC V24, CMS/HCC V28); Benign prostatic hyperplasia with lower urinary tract symptoms, symptom details unspecified; Anxiety; [place] (hard of hearing); Chronic cough from Last 3 Months Immunizations Name Administration Dates Next Due Hepatitis B (Recombivax HB-D ialysis) 18yo and older 06/05/2023 Influenza Quadravalent, MDCK , 0.5ml, preservative free (Flucelvax) 6mo and older 09/01/2018 Influenza trivalent, 0.5mL ( Fluzone High-dose) 65yo and older 08/14/2024,09/11/2023,08/27/2022,08/24,09/04/2019,08/29/2017,07/27/2016 Influenza trivalent, with pr eservative (Fluzone; Afluria) 6mo and older 08/30/2011,08/18/2009 Pneumococcal conjugate 13 va lent (Prevnar 13, PCV13) 2mo and older 12/28/2014 Pneumococcal polysaccharide 23 valent (Pneumovax 23) 2yo and older 03/02/2011 SARS-COV-2 (COVID-19) Vaccin e, Unspecified 08/14/2024,09/19/2023 Td Tetanus diptheria (Tdvax) 7yo and older 09/08/2019,06/04/2008 Zoster Live 12/25/2012 Zoster recombinant (Shingrix ) 19yo and older 06/05/2023,03/07/2023 Surgical History Surgery Date Site/Laterality Comments OTHER SURGICAL HISTORY PROCEDURE: HISTORY OTHER; COMMENT: left ankle fx orif 2 pins stll in WISDOM TOOTH EXTRACTION PROCEDURE: HISTORICAL WISDOM TEETH EXTRACTION HERNIA REPAIR Left PROCEDURE: HISTORICAL HERNIA REPAIR/ING; COMMENT: dr [id number] OTHER SURGICAL HISTORY 12/16 PROCEDURE: HISTORICAL MITRAL VALVE REPL; COMMENT: Dr Kraft Medical History Medical History Date Comments Anxiety 08/30/2011 DX:Anxiety 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 DX:S/P m itral valve repair; COMMENT: Transesophageal echocardiogram - 11/28/11 - severe eccentric mitral insufficiency, trace aortic insufficiency, trace tricuspid insufficiency; no pulmonic insufficiency; normal left ventricular function Dr Kraft; repaired 12/16; [facility] Mo ring; needs abx prophylaxis until at least 12/17 per surgerys HTN (hypertension) 08/30/2011 DX:HTN (hyper tension) BPH (benign prostatic hyperplasia) 02/12/2012 DX:BPH (benign prostatic hyperplasia) Erectile dysfunction 12/02/2013 DX:Erectile dysfunction Paroxysmal atrial fibrillati on (CMS/HCC V24, CMS/HCC V28) 12/28/2014 DX:Paroxysmal atrial fibril lation (HCC) Family history of melanoma 03/06/2016 DX:Bety jose history of melanoma; COMMENT: Family history of melanoma One of three brothers Acute left-sided low back pa in with left-sided sciatica 04/13/2018 DX:Acute left-sided low back pain with left-sided sciatica CKD (chronic kidney disease) stage 3, GFR 30-59 ml/min (CMS/HCC V24, CMS/HCC V28) 02/16/2022 DX:CKD (chronic kidney disea se) stage 3, GFR 30-59 ml/min ([facility]) Family History Medical History Relation Name Comments Melanoma Brother 1 Other: atrial fibrillation Brother 2 Other: varicose veins Brother 2 Prostate cancer Brother 3 Other: lung cancer Sister smoker Relation Name Status Comments Brother 1 Alive htn, afib Brother 2 Alive BPH ?prostate c ancer Brother 3 Alive Father (Age 96) Mother (Age 84) skin cance r Sister lung cancer - s kathi Social History Tobacco Use Types Packs/Day Years Used Date Smoking Tobacco: Former Cigarettes Q uit: 11/04/1993 Smokeless Tobacco: Never Tobacco Cessation:Counseling Given: Not Answered Alcohol Use Standard Drinks/Week Comments Yes 0 (1 standard drink = 0.6 oz pur e alcohol) Housing Instability Answer Date Recorde d Are you worried that in the next 2 months you may not have stable housing? No 09/24/2024 Food Access & Nutrition Answer Date Rec orded Do you have access to a vari ety of food including fruits and vegetables? Yes 09/24/2024 Access to Healthcare Answer Date Record ed Within the last 3 months, ho w many times did you visit the emergency department for your medical care? 0 09/24/2024 Health Literacy Answer Date Recorded How often do you need to hav e someone help you when you read instructions, pamphlets, or other written material from your doctor or pharmacy? Rarely 09/24/2024 Caregiver: How often do you need to have someone help you when you read instructions, pamphlets, or other written material from your doctor or pharmacy? Not on file 09/24/2024 Financial Risk Answer Date Recorded How hard is it for you to pa y for the very basics like food, housing, medical care, and air conditioning / heating? Not very hard 09/24/2024 Transportation Answer Date Recorded Has the lack of transportati on kept you from meetings, work, or from getting things needed for daily living? No Has the lack of transportati on kept you from medical appointments or from getting medications? No 09/24/2024 Social Isolation Answer Date Recorded How often do you feel lonely or isolated from those around you? Sometimes 09/24/2024 Food Risk Answer Date Recorded Within the past 12 months we worried whether our food would run out before we got money to buy more. Never true 09/24/2024 Within the past 12 months th e food we bought just didn't last and we didn't have money to get more. Never true 09/24/2024 Dependent Care Answer Date Recorded Do you need help finding or paying for care for your loved ones. For example, child and family services specialist or elderly care for an older adult? No 09/24/2024 Education Answer Date Recorded Do you think completing more education or training, like finishing a GED, going to college, or learning a trade, would be helpful for you? No 09/24/2024 Employment and Income Answer Date Recor ded During the last four weeks, have you been actively looking for work? No 09/24/2024 Living Situation Answer Date Recorded What is your living situation? 1 11/24/2023 Sex and Gender Information Value Date Recorded Sex Assigned at Male 09/24/2024 2:25 AM EST Legal Sex Male 5:02 PM EST Gender Identity Male 09/24/2024 2:25 AM EST Sexual Orientation Choose not to disclose 2023 2:25 AM EST Obstetrics History Last Filed Vital Signs Vital Sign Reading Time Taken Comments Blood Pressure 132/70 04/02/2025 12:12 PM EDT Pulse 54 04/02/2025 12:12 PM EDT Temperature 35.6 C (96 F) 04/02/2025 12:12 PM EDT Respiratory Rate 14 04/02/2025 12:12 PM EDT Oxygen Saturation 97% 03/02/2022 3:07 PM EDT RA Inhaled Oxygen Concentration - - Weight 99.3 kg (219 lb) 04/02/2025 12:12 PM EDT Height 188 cm (6' 2 ) 04/02/2025 12:12 PM EDT Body Mass Index 28.12 04/02/2025 12:12 PM EDT Plan of Treatment Upcoming Encounters Date Type Department Care Team (Late st Contact Info) Description 10/13/2025 12:45 PM EST Office Visit Adult Medicine [facility] - [address] [phone] Douglas Aguero PA [address] [place], [place] 12/30/2025 1:15 PM EST Office Visit Nephrology - [address] [phone] Rahul Tejeda MD [address] [phone] Health Maintenance Due Date Last Done Comments RSV Immunization Adult Patients (1 - -dose 75+ series) 2019 Hepatitis B Vaccines (2 of 3 - 19+ 3-dose series) 07/03/2023 06/05/2023 COVID-19 Vaccine (6 - Pfizer risk season) 2025 08/14/2024, 09/19/2023, 10/17/2021, Additional history exists Influenza Vaccine (#1) 2025 , 09/11/2023, 08/27/2022, Additional history exists Social Influencers of Health Screening 09/24/2025 09/24/2024 Falls Risk Assessment 09/25/2025 09/25/2024 Hypertension/CHF/CAD Annual BMP Blood Test 03/25/2026 03/25/2025, 12/18/2024, 09/21/2024, Additional history exists Depression Screening 03/30/2026 03/30/2025 DTaP,Tdap,and Td Vaccines (3 - Td or Tdap) 09/08/2029 09/08/2019, 06/04/2008 Cholesterol Screening (Lipid Panel) 03/25/2030 03/25/2025, 09/21/2024, 05/06/2024, Additional history exists Pneumococcal Vaccine: 50+ Years Completed 12/28/2014, 03/02/2011 Zoster Vaccines Completed 06/05/2023, 02/2023, 12/25/2012 Colorectal Cancer Screening: Stool Based Tests (FOBT/FIT) Discontinued HIB Vaccines Aged Out No longer eligi ble based on patient's age to complete this topic HPV Vaccines Aged Out No longer eligi ble based on patient's age to complete this topic Hepatitis A Vaccines Aged Out No long er eligible based on patient's age to complete this topic IPV Vaccines Aged Out No longer eligi ble based on patient's age to complete this topic MMR Vaccines Aged Out No longer eligi ble based on patient's age to complete this topic Meningococcal ACWY Vaccine Aged Out N o longer eligible based on patient's age to complete this topic Meningococcal B Vaccine Aged Out No l onger eligible based on patient's age to complete this topic RSV Immunization Patients Under 20 months Aged Out No longer eligible based on patient's age to complete this topic Varicella Vaccines Aged Out No longer eligible based on patient's age to complete this topic Procedures Procedure Name Priority Date/Time Associated Diagnosis Comments CBC WITH AUTO DIFFERENTIAL Routine 03/25/2025 2:20 PM EDT Secondary hypertension Stage 3 chronic kidney disease, unspecified whether stage 3a or 3b CKD (CMS/HCC V24, CMS/HCC V28) Paroxysmal atrial fibrillation (CMS/HCC V24, CMS/HCC V28) LIPID PANEL WITH REFLEX TO DIRECT LDL Routine 03/25/2025 2:20 PM EDT Secondary hypertension Stage 3 chronic kidney disease, unspecified whether stage 3a or 3b CKD (CMS/HCC V24, CMS/HCC V28) Paroxysmal atrial fibrillation (CMS/HCC V24, CMS/HCC V28) COMPREHENSIVE METABOLIC PANEL Routine 03/25/2025 2:20 PM EDT Secondary hypertension Stage 3 chronic kidney disease, unspecified whether stage 3a or 3b CKD (CMS/HCC V24, CMS/HCC V28) Paroxysmal atrial fibrillation (CMS/HCC V24, CMS/HCC V28) PSA TOTAL, FREE AND COMPLEXED, DIAGNOSTIC Routine 03/25/2025 2:20 PM EDT Secondary hypertension Stage 3 chronic kidney disease, unspecified whether stage 3a or 3b CKD (CMS/HCC V24, CMS/HCC V28) Paroxysmal atrial fibrillation (CMS/HCC V24, CMS/HCC V28) VITAMIN D 25 HYDROXY Routine 03/25/2025 2:20 PM EDT Secondary hypertension Stage 3 chronic kidney disease, unspecified whether stage 3a or 3b CKD (CMS/HCC V24, CMS/HCC V28) Paroxysmal atrial fibrillation (CMS/HCC V24, CMS/HCC V28) CBC AND DIFFERENTIAL Routine 03/25/2025 2:20 PM EDT Secondary hypertension Stage 3 chronic kidney disease, unspecified whether stage 3a or 3b CKD (CMS/HCC V24, CMS/HCC V28) Paroxysmal atrial fibrillation (CMS/HCC V24, CMS/HCC V28) from Last 3 Months Results * PSA total, free and complexed (03/25/2025 2:20 PM EDT) Pathologist [facility] [place] PSA 1.47 0.00 - 4.00 ng/mL LAB CHEMISTRY METHOD 03/25/2025 6:04 PM EDT [facility] PSA, Complexed 0.94 0.00 - 3.00 ng/mL LAB CHEMISTRY METHOD 03/25/2025 6:04 PM EDT [facility] PSA, Free 0.5 ng/mL LAB CHEMISTRY METHOD 03/25/2025 6:04 PM EDT [facility] PSA, Free Pct 34.0 >25.0 % LAB CHEMISTRY METHOD 03/25/2025 6:04 PM EDT [facility] Blood Venous blood specimen / Unknown Venipuncture / Unknown 03/25/2025 2:20 PM EDT 03/25/2025 2:20 PM EDT [facility] - 03/25/2025 6:04 PM EDT Free PSA is a calculated value. The diagnostic usefulness of % free PSA has not been established in patients with Total PSA below 2.6 or above 10 ng/mL. This test was performed using the Centaur Chemiluminescent method. PSA values obtained with other methods cannot be used interchangeably. Douglas HERMAN LAB BLOOD ORDERABLES Lyly jerome Result [facility] [address] [place] [address], * (ABNORMAL) Lipid panel with reflex to direct LDL (03/25/2025 2:20 PM EDT) Pathologist [facility] [place] Cholesterol 190 0 - 200 mg/dL LAB CHEMISTRY METHOD 03/25/2025 5:05 PM EDT [facility] Triglycerides 92 0 - 150 mg/dL LAB CHEMISTRY METHOD 03/25/2025 5:05 PM EDT [facility] HDL 68 >=40 mg/dL LAB CHEMISTRY METHOD 03/25/2025 5:05 PM EDT [facility] LDL Calculated 104(H) 0 - 100 mg/dL LAB CHEMISTRY METHOD 03/25/2025 5:05 PM EDT [facility] VLDL Cholesterol Chan 18.4 mg/dL LAB CHEMISTRY METHOD 03/25/2025 5:05 PM EDT [facility] Non HDL Chol. (LDL+VLDL) 122 <145 mg/dL LAB CHEMISTRY METHOD 03/25/2025 5:05 PM EDT [facility] Chol/HDL Ratio 2.8 0.0 - 4.4 LAB CHEMISTRY METHOD 03/25/2025 5:05 PM EDT [facility] Blood Venous blood specimen / Unknown Venipuncture / Unknown 03/25/2025 2:20 PM EDT 03/25/2025 2:20 PM EDT us Douglas HERMAN LAB BLOOD ORDERABLES Lyly jerome Result [facility] [address] [place] [address], * (ABNORMAL) CBC auto differential (03/25/2025 2:20 PM EDT) WBC 9.0 4.8 - 10.8 K/mcL LAB HEMETOLOGY METHOD 03/25/2025 4:42 PM EDT [facility] RBC 5.40 4.50 - 5.50 M/[facility] LAB HEMETOLOGY METHOD 03/25/2025 4:42 PM EDT [facility] Hemoglobin 16.8 13.5 - 17.5 g/dL LAB HEMETOLOGY METHOD 03/25/2025 4:42 PM EDT [facility] Hematocrit 50.7 42.0 - 54.0 % LAB HEMETOLOGY METHOD 03/25/2025 4:42 PM EDT [facility] MCV 94.2 79.0 - 98.0 FL LAB HEMETOLOGY METHOD 03/25/2025 4:42 PM EDT [facility] MCH 31.2 27.0 - 32.0 pcg LAB HEMETOLOGY METHOD 03/25/2025 4:42 PM EDT [facility] MCHC 33.1 32.0 - 37.0 g/dL LAB HEMETOLOGY METHOD 03/25/2025 4:[facility] RDW 13.4 11.0 - 15.0 % LAB HEMETOLOGY METHOD 03/25/2025 4:42 PM EDT [facility] Platelets 183 130 - 400 K/mcL LAB HEMETOLOGY METHOD 03/25/2025 4:[facility] MPV 11.6(H) 7.0 - 11.0 FL LAB HEMETOLOGY METHOD 03/25/2025 4:42 [facility] NRBC 0.0 <1.0 % LAB HEMETOLOGY METHOD 03/25/2025 4:42 PM EDT [facility] NRBC Absolute 0.00 <0.10 K/mcL LAB HEMETOLOGY METHOD 03/25/2025 4:42 PM [facility] Neutrophils Relative 67.2 % LAB HEMETOLOGY METHOD 03/25/2025 4:42 [facility] Lymphocytes Relative 18.0 % LAB HEMETOLOGY METHOD 03/25/2025 4:42 PM EDT [facility] Monocytes Relative 10.2 % LAB HEMETOLOGY METHOD 03/25/2025 4:42 PM EDT [facility] Eosinophils Relative 3.2 % LAB HEMETOLOGY METHOD 03/25/2025 4:42 [facility] Basophils Relative 0.8 % LAB HEMETOLOGY METHOD 03/25/2025 4:42 PM [facility] Immature Granulocytes Relative 0.6 % LAB HEMETOLOGY METHOD 03/25/2025 4:42 PM EDT [facility] Neutrophils Absolute 6.05 1.50 - 7.00 K/[facility] HEMETOLOGY METHOD 03/25/2025 4:42 PM EDT [facility] Lymphocytes Absolute 1.62 1.00 - 5.00 K/mcL LAB HEMETOLOGY METHOD 03/25/2025 4:42 PM EDT [facility] Monocytes Absolute 0.92 0.20 - 1.00 K/mcL LAB HEMETOLOGY METHOD 03/25/2025 4:42 PM EDT [facility] Eosinophils Absolute 0.29 0.00 - 0.50 [facility] HEMETOLOGY METHOD 03/25/2025 4:42 PM EDT [facility] Basophils Absolute 0.07 0.00 - 0.20 K/mcL LAB HEMETOLOGY METHOD 03/25/2025 4:42 PM EDT [facility] Immature Granulocytes Absolute 0.05(H) 0.00 - 0.03 [facility] HEMETOLOGY METHOD 03/25/2025 4:42 PM EDT [facility] Blood Venous blood specimen / Unknown Venipuncture / Unknown 03/25/2025 2:20 PM EDT 03/25/2025 2:20 PM EDT Douglas HERMAN LAB BLOOD ORDERABLES Lyly jerome Result [facility] [address] [place] [address], * Vitamin D 25 hydroxy (03/25/2025 2:20 PM EDT) Vit D, 25-Hydroxy 40.0 30.0 - 80.0 ng/mL LAB CHEMISTRY METHOD 03/25/2025 6:04 PM EDT [facility] Blood Venous blood specimen / Unknown Venipuncture / Unknown 03/25/2025 2:20 PM EDT 03/25/2025 2:20 PM EDT Douglas HERMAN LAB BLOOD ORDERABLES Lyly queenie Result [facility] [address] [place] [address], [place] [phone] * (ABNORMAL) Comprehensive metabolic panel (03/25/2025 2:20 PM EDT) [facility] Sodium 139 133 - 145 mmol/L LAB CHEMISTRY METHOD 03/25/2025 5:05 PM [facility] Potassium 4.2 3.5 - 5.5 mmol/L LAB CHEMISTRY METHOD 03/25/2025 5:05 PM [facility] Chloride 102 96 - 110 mmol/L LAB CHEMISTRY METHOD 03/25/2025 5:05 PM [facility] CO2 31 21 - 32 mmol/L LAB CHEMISTRY METHOD 03/25/2025 5:05 PM [facility] Anion Gap 6 3 - 11 LAB CHEMISTRY METHOD 03/25/2025 5:05 PM [facility] Glucose 94 70 - 100 mg/dL LAB CHEMISTRY METHOD 03/25/2025 5:05 PM [facility] BUN 23 5 - 25 mg/dL LAB CHEMISTRY METHOD 03/25/2025 5:05 PM [facility] Creatinine 1.62(H) 0.70 - 1.30 mg/dL LAB CHEMISTRY METHOD 03/25/2025 5:05 PM [facility] eGFR 43(L) >=60 mL/min/1. 73m2 LAB CHEMISTRY METHOD 03/25/2025 5:05 PM [facility] Comment:Calculation based on the Chronic Kidney Disease Epidemiology Collaboration (CKD-EPI) equation refit without adjustment for race. BUN/Creatinine Ratio 14.2 LAB CHEMISTRY METHOD 03/25/2025 5:05 PM EDT [facility] Calcium 9.1 8.5 - 10.5 mg/dL LAB CHEMISTRY METHOD 03/25/2025 5:05 PM [facility] AST (SGOT) 26 10 - 42 unit/L LAB CHEMISTRY METHOD 03/25/2025 5:05 PM [facility] ALT (SGPT) 27 10 - 60 unit/L LAB CHEMISTRY METHOD 03/25/2025 5:05 PM [facility] Alkaline Phosphatase 65 42 - 121 unit/L LAB CHEMISTRY METHOD 03/25/2025 5:05 PM [facility] Total Protein 7.9 6.0 - 8.0 g/dL LAB CHEMISTRY METHOD 03/25/2025 5:05 PM [facility] Albumin 3.7 3.2 - 5.0 g/dL LAB CHEMISTRY METHOD 03/25/2025 5:05 PM [facility] Total Bilirubin 0.6 0.0 - 1.4 mg/dL LAB CHEMISTRY METHOD 03/25/2025 5:05 PM [facility] Blood Venous blood specimen / Unknown Venipuncture / Unknown 03/25/2025 2:20 PM EDT 03/25/2025 2:20 PM EDT Douglas HERMAN LAB BLOOD ORDERABLES Lyly jerome Result [facility] [address] [place] [address], from Last 3 Months Insurance [place] [id number] Care Teams Waitstaff Captain Relationship Specialty Start Date End Date Douglas Aguero PA [address] [place] [address] PCP - General Internal Medicine 12/28/20
== END 2025-05-10 12:40 | disposition home or self-care (01) ==
LOC: HO.SH 12:39
PROVIDERS: Visit Provider Physician Assistant Medical
DX: I48.0 Paroxysmal atrial fibrillation (principal); H91.90 Unspecified hearing loss, unspecified ear; I15.9 Secondary hypertension, unspecified; F41.9 Anxiety disorder, unspecified; N40.1 Benign prostatic hyperplasia with lower urinary tract symptoms; R05.3 Chronic cough
CPT/HCPCS: 92557; 92567

== ENCOUNTER 2025-06-14 13:30 | Emergency (ER) | payer OTHER, SELFPAY ==
--- NOTE | ~2025-06-14 | XR_ITS ---
EXAMINATION: XR HIP, RIGHT CLINICAL INFORMATION: pain, injury COMPARISON: None available. TECHNIQUE: AP and oblique views of the right hip. AP view pelvis. FINDINGS: No acute cortical disruption or gross malalignment. Degenerative changes in the coxofemoral joints. Spondylosis at L4-5 and L5-S1. Vascular calcifications. Vascular clips in the right inguinal region. Degenerative changes in the symphysis pubis. XR/XR hip RT w PEL1V IMPRESSION: No acute fracture or dislocation, right hip. Moderate osteoarthrosis/osteoarthritis, right hip. Atherosclerosis disease. Spondylosis, L5-S1. Electronically signed by: Delroy Cole MD 06/14/2025 02:55 PM EDT
--- NOTE | ~2025-06-14 | XR_ITS ---
EXAMINATION: XR HAND, RIGHT CLINICAL INFORMATION: pain, injury COMPARISON: None available. TECHNIQUE: PA, lateral, and oblique views of the right hand. FINDINGS: No acute cortical disruption or malalignment. No lytic or blastic lesions. No subcutaneous emphysema. No metallic or radiopaque foreign body. XR/XR hand RT 2V IMPRESSION: Negative for acute fracture or dislocation. Electronically signed by: Delroy Cole MD 06/14/2025 02:53 PM EDT
--- NOTE | ~2025-06-14 | XR_ITS ---
EXAMINATION: XR ELBOW, RIGHT CLINICAL INFORMATION: pain, injury COMPARISON: None available. TECHNIQUE: AP and lateral views of the right elbow. FINDINGS: No acute cortical disruption. No gross malalignment. No metallic or radiopaque foreign body. No subcutaneous emphysema. No gross joint effusion. No lytic or blastic lesions. XR/XR elbow RT min 3V IMPRESSION: No acute fracture or dislocation. Electronically signed by: Delroy Cole MD 06/14/2025 02:57 PM EDT
--- NOTE | ~2025-06-14 | XR_ITS ---
EXAMINATION: XR KNEE, RIGHT CLINICAL INFORMATION: pain, injury COMPARISON: None available. TECHNIQUE: AP oblique and lateral views, of the right knee. FINDINGS: No acute cortical disruption or malalignment. Marginal osteophyte formation and sclerosis along the articular surface of the lateral femoral condyle and lateral tibial plateau. Asymmetric joint space narrowing involving mostly the lateral compartment. Suprapatellar bursa joint effusion, moderate volume. Vascular calcification. Osteopenia versus osteoporosis. XR/XR knee RT 3V IMPRESSION: Bicompartmental atherosclerosis without acute fracture or dislocation. Suprapatellar bursa joint effusion, moderate volume. Atherosclerosis disease, peripheral. Electronically signed by: Delroy Cole MD 06/14/2025 02:57 PM EDT
--- NOTE | ~2025-06-14 | XR_ITS ---
EXAMINATION: XR SHOULDER, RIGHT CLINICAL INFORMATION: post-reduction COMPARISON: June 14, 2025 at 221. TECHNIQUE: AP view of the right shoulder. FINDINGS: Normal alignment. Acute on chronic pulmonary disease should be considered.. XR/XR shoulder RT min 2V IMPRESSION: Satisfactory post reduction. Electronically signed by: Delroy Cole MD 06/14/2025 03:09 PM EDT
--- NOTE | ~2025-06-14 | CT_ITS ---
EXAMINATION: CT HEAD WITHOUT CONTRAST CLINICAL INFORMATION: fall, head strike, pain COMPARISON: None available. TECHNIQUE: Contiguous axial imaging was performed from the skull base to vertex without intravenous administration of contrast. This CT examination was performed using dose optimization techniques as appropriate, variously including the following: *Automated exposure control *Adjustment of mA and/or kV according to patient size (this includes techniques or standardized protocols for targeted exams where dose is matched to indication/reason for exam; i.e. extremities or head) *Use of iterative reconstruction technique DLP: 835.88 mGy-cm FINDINGS: No acute cortical disruption in the bony calvarium. No acute intracranial hemorrhage, mass effect, midline shift, hydrocephalus or herniation. Posterior cranial fossa contents demonstrated no acute hemorrhage. Normal position of the cerebellar tonsils. No gross masses in the sellar suprasellar region. Bilateral multifocal patchy deep periventricular white matter hypodensities involving centrum semiovale and tirado radiata. Calcified plaques in the cavernous supracavernous segments both ICAs and V4 segments of the vertebral arteries. Retention cysts versus polyp, right maxillary sinus. No air-fluid levels in the paranasal sinuses. Tympanic cavities and mastoid cells are aerated. No hematoma in the intraconal or extraconal compartments of the orbits. CT/CT head/brain wo IV con IMPRESSION: No acute fracture, bony calvarium. No acute intracranial hemorrhage. Small vessel occlusive disease. Global cerebral atrophy. Atherosclerosis disease, intracranial Electronically signed by: Delroy Cole MD 06/14/2025 02:44 PM EDT
--- NOTE | ~2025-06-14 | CT_ITS ---
EXAMINATION: CT CERVICAL SPINE WITHOUT CONTRAST CLINICAL INFORMATION: Status post fall. COMPARISON: None available. TECHNIQUE: Contiguous axial images through the cervical spine using 3 mm collimation with bone and soft tissue algorithm. Sagittal and coronal reformatted images acquired. DLP: 401.[address] examination was performed using dose optimization techniques as appropriate, variously including the following: *Automated exposure control *Adjustment of mA and/or kV according to patient size (this includes techniques or standardized protocols for targeted exams where dose is matched to indication/reason for exam; i.e. extremities or head) *Use of iterative reconstruction technique FINDINGS: Patient motion artifact. Craniocervical junction is intact with normal alignment between the occipital condyles and lateral masses of C1. Degenerative changes in the periodontal C1 region. Multilevel syndesmophyte formation and marginal 5 formation and subchondral cyst formation decreased intervertebral disc height from C3-4 to C6-7. Grade 1 anterolisthesis C4-5 and C7-T1 likely degenerative. Multilevel facet joint hypertrophy mostly on the left side of C3-4 C4-5 and the right side of C6-7. C1 is intact. C2 is intact. C3 is intact. C4 is intact. C5 is intact. C6 is intact. C7 is intact. No gross prevertebral compartment hematoma. Mixed plaques in the right ICA. Thyroid gland is not enlarged. . CT/CT cervical spine wo IV con IMPRESSION: Multilevel cervical spondylosis resulting in central spinal canal stenosis at C5-6 and to a lesser extent C4-5 and C3-4 without acute fracture or trauma-related listhesis. Mixed plaques, right ICA. Fleischner guidelines were followed. Electronically signed by: Delroy Cole MD 06/14/2025 02:50 PM EDT
--- NOTE | ~2025-06-14 | XR_ITS ---
EXAMINATION: XR SHOULDER, RIGHT CLINICAL INFORMATION: pain, injury COMPARISON: None available. TECHNIQUE: AP and Y-view projections of the right shoulder. FINDINGS: There is an anterior and inferior position of the right humeral head neck with respect to the coracoid process and the scapula. No acute cortical disruption. Clavicle is intact. XR/XR shoulder RT min 2V IMPRESSION: Anterior subcoracoid dislocated glenohumeral joint without gross fracture. Electronically signed by: Delroy Cole MD 06/14/2025 02:54 PM EDT
[2025-06-14 13:42] VITALS: BP 170/90; BP 218/81; PULSE 74; PULSE 77; RESP 24; TEMP 36.5; O2SAT 95; O2SAT 96; BMI 29.6
--- NOTE | 2025-06-14 13:46 | ED_ITS ---
HPI - General Adult General Chief complaint: Fall Stated complaint: FALL, -HS, -BT, DEFORMITY TO L SHOULDER PER EMS Time Seen by Provider: 06/14/25 13:46 Source: patient and EMS Mode of arrival: EMS Limitations: no limitations History of Present Illness ED Provider: Helen Mcnally PA-C HPI narrative: Patient is an 79 year old assigned male at with a history of AAA, mitral valve repair, and HTN presenting to the emergency department today with right shoulder pain after a trip and fall. Patient states that he was walking when he tripped over his friends cane and fell down. Patient denies any dizziness, lightheadedness, abdominal pain, nausea, vomiting, fever, chills, blurry vision, double vision, loss of vision, chest pain, difficulty breathing, shortness of breath, back pain, night sweats, pain with urination, increased urinary frequency, increased urinary urgency, blood in his urine or stool, syncope or a near syncopal episode, bowel incontinence, bladder incontinence, or any other complaints at this time. Relieving factors: none Exacerbating factors: none Associated symptoms: denies other symptoms Treatments prior to arrival: none Related Data Home Medications ?Medication ?Instructions ?Recorded ?Confirmed aspirin 81 mg tablet,delayed 81 mg PO DAILY 09/20/2011/28/23 release (Adult Low Dose Aspirin) metoprolol succinate 50 mg 50 mg PO DAILY 09/20/20 tablet,extended release 24 hr hydrochlorothiazide 12.5 mg capsule 12.5 mg PO DAILY 1 12/03/21 09/28/24 lisinopril 40 mg tablet 40 mg PO DAILY 09/24/2309/05 nifedipine 30 mg tablet,extended 30 mg PO DAILY 09/28/24 release Allergies Allergy/AdvReac Type Severity Reaction Status Date / Time No Known Drug Allergies (NO Allergy Unknown NONE Unverified 06/14/25 13:53 KNOWN DRUG ALLERGIES) Review of Systems Constitutional: Constitutional: Reports no additional constitutional complaints, Denies chills, Denies fever(s) and Denies night sweats Eyes: Eyes: Reports no additional eye complaints, Denies blurry vision, Denies change in vision, Denies diplopia, Denies eye discharge, Denies loss of vision and Denies eye pain ENT: Denies dizziness Cardiovascular: Cardiovascular: Reports no additional cardiovascular complaints, Denies chest pain, Denies lightheadedness, Denies Loss of Consciousness and Denies dyspnea Respiratory: Respiratory: Reports no additional respiratory complaints and Denies dyspnea Gastrointestinal: Gastrointestinal: Reports no additional gastrointestinal complaints, Denies abdominal pain, Denies melena, Denies hematochezia, Denies change in bowel habits and Denies change in stool character Genitourinary: Genitourinary: Reports no additional male genitourinary complaints, Denies hematuria, Denies oliguria, Denies difficulty urinating, Denies dysuria, Denies urinary frequency, Denies urinary hesitancy, Denies urinary incontinence and Denies urinary urgency Musculoskeletal: Musculoskeletal: Reports no additional musculoskeletal complaints, Denies numbness and Denies tingling Comments: right shoulder pain Neurologic: Denies dizziness, Denies loss of vision, Denies numbness and Denies tingling Psychiatric: Psychiatric: Reports no additional psychiatric complaints Endocrine: Endocrine: Reports no additional endocrine complaints Hematologic/Lymphatic: Hematologic/Lymphatic: Reports no additional hematologic/lymphatic complaints Allergic/Immunologic: Allergic/Immunologic: Reports no additional allergic/immunologic complaints PMFSH Past Medical History Attestation statement: The following information was validated with the patient. Source: old records reviewed and nursing notes reviewed Medical History Ascending aortic aneurysm Labile blood pressure Postoperative atrial fibrillation Mitral regurgitation Mitral valve prolapse HTN (hypertension) Surgical History H/O mitral valve repair Family History Family History Father No problems noted. Mother No problems noted. Social History Social History Patient Tobacco Use Status: Former Tobacco user Advance Directives: No Advance Directives Information Provided: No Physical Exam ED Vital Signs: Vital Signs - 24 hr 06/14/25 13:42 Temperature 97.7 F Pulse Rate 77 Respiratory Rate 24 H Blood Pressure 218/81 H Pulse Oximetry 95 Oxygen Delivery Method Room Air BMI result Body Mass Index 29.6 Const General: cooperative, no acute distress, alert and awake Nutritional Appearance: well nourished Orientation/consciousness: patient oriented x3 HENMT Head: Yes normal to inspection and Yes atraumatic Ears: hearing grossly normal bilaterally and external ears normal General nose exam: Normal external nose present, no nasal discharge noted and no epistaxis Face and sinus: Yes normal facial exam, No abrasion and No laceration Mouth: Normal oral and palatal mucosa present, no drooling and no muffled voice Eyes General: appearance normal, both eyes and all related structures Periorbital: periorbital findings normal Eyelids: Yes eyelids normal Conjunctivae: conjunctivae normal Pupils: Equal, round and reactive pupils present EOM: EOMs intact bilaterally Neck Neck: Yes normal visual inspection and Yes full ROM Resp Effort & Inspection: normal respiratory effort and able to speak in complete sentences Neuro General: patient oriented x3, moves all extremities and CN's II-XI intact bi laterally Cranial nerves: Yes Equal, round and reactive pupils present Cognition (Neuro): normal cognition Extrem Other: decreased right shoulder ROM secondary to pain anterior sitting right humeral head General: Yes capillary refill normal Psych Appearance: grossly normal Mental Status: mental status grossly normal Affect: normal affect Attitude: cooperative Thought process: Normal thought process present Thought content: Normal thought content present Insight: Good insight present (Psych) Procedures Orthopedic Joint Reduction Joint #1: Time Out Performed: Yes Side: right Joint Reduction Location: shoulder Analgesia: none Shoulder Technique Used (if applicable): external rotation Post-reduction neuro exam: intact Post-reduction vascular: intact Post Reduction X-Ray Obtained: Yes Post Reduction X-Ray Results: reduced Splint Applied: Yes (sling) Patient Tolerated Procedure: well Orthopedic Splinting/Casting Injury #1: Side: right Upper Extremity Injury Location: shoulder Upper Extremity Immobilizer: sling/shoulder immobilizer Medical Decision Making Medical Decision Making MDM Narrative: Patient is an 79 year old assigned male at with a history of AAA, mitral valve repair, and HTN presenting to the emergency department today with right shoulder pain after a trip and fall. Patient's physical exam was as noted in the physical exam portion of this note. Patient's right shoulder x-ray showed an anterior subcoracoid dislocated gelnohumeral joint without fracture. Patient's right elbow x-ray showed no acute process. Patient's right knee x-ray showed a joint effusion but was otherwise unremarkable. Patient's right hand x-ray showed no acute process. Patient's CT head and c-spine showed no acute process. I explained my physical exam findings as well as all test results to the patient. I answered all questions asked by the patient. I reduced the patient's right shoulder dislocation, without incident. Patient's PMS was intact prior to and after shoulder reduction. Patient's right upper extremity was placed in a sling, without incident. Patient's PMS was intact prior to and after sling. I stressed the importance of the patient taking his medication as directed (either prescribed or as the over the counter packaging recommends). I stressed the importance of the patient following up with his primary care provider and an orthopedic provider. I stressed the importance of the patient returning to the emergency department immediately if his symptoms were to worsen or if he were to develop any dizziness, shortness of breath, difficulty breathing, chest pain, blurry vision, loss of vision, nausea, vomiting, abdominal pain, fever, chills, back pain, or any other complaints. Patient verbalized agreement and understanding with this treatment plan and discharge. Differential Diagnosis Differential Diagnoses: The differential diagnosis associated with the presentation includes Right shoulder dislocation Fall Right knee pain Admission/Observation Consideration of admission/observation: Escalation of care including admission/observation considered Patient would have been admitted to the hospital had his work up had any findings where hospital admission was appropriate and his clinical presentation warranted hospital admission. Independent Interpretation I performed an independent interpretation of an: Plain X-Ray and CT Scan Interpretation: My interpretation is in agreement with the radiologist's impression of these imaging studies. Report Number: [id number]: Total DLP = 0.00 mGy-cm EXAMINATION: CT HEAD WITHOUT CONTRAST CLINICAL INFORMATION: fall, head strike, pain COMPARISON: None available. TECHNIQUE: Contiguous axial imaging was performed from the skull base to vertex without intravenous administration of contrast. This CT examination was performed using dose optimization techniques as appropriate, variously including the following: *Automated exposure control *Adjustment of mA and/or kV according to patient size (this includes techniques or standardized protocols for targeted exams where dose is matched to indication/reason for exam; i.e. extremities or head) *Use of iterative reconstruction technique DLP: 835.88 mGy-cm FINDINGS: No acute cortical disruption in the bony calvarium. No acute intracranial hemorrhage, mass effect, midline shift, hydrocephalus or herniation. Posterior cranial fossa contents demonstrated no acute hemorrhage. Normal position of the cerebellar tonsils. No gross masses in the sellar suprasellar region. Bilateral multifocal patchy deep periventricular white matter hypodensities involving centrum semiovale and tirado radiata. Calcified plaques in the cavernous supracavernous segments both ICAs and V4 segments of the vertebral arteries. Retention cysts versus polyp, right maxillary sinus. No air-fluid levels in the paranasal sinuses. Tympanic cavities and mastoid cells are aerated. No hematoma in the intraconal or extraconal compartments of the orbits. CT/CT head/brain wo IV con IMPRESSION: No acute fracture, bony calvarium. No acute intracranial hemorrhage. Small vessel occlusive disease. Global cerebral atrophy. Atherosclerosis disease, intracranial Electronically signed by: Delroy Cole MD 06/14/2025 02:44 PM EDT RP Dictated By: Delroy Michel MD Signed By: Electronically signed by Delroy Bass MD 06/14/25 1444 EXAMINATION: XR SHOULDER, RIGHT CLINICAL INFORMATION: pain, injury COMPARISON: None available. TECHNIQUE: AP and Y-view projections of the right shoulder. FINDINGS: There is an anterior and inferior position of the right humeral head neck with respect to the coracoid process and the scapula. No acute cortical disruption. Clavicle is intact. XR/XR shoulder RT min 2V IMPRESSION: Anterior subcoracoid dislocated glenohumeral joint without gross fracture. Electronically signed by: Delroy Cole MD 06/14/2025 02:54 PM EDT RP Dictated By: Delroy Michel MD Signed By: Electronically signed by Delroy Bass MD 06/14/25 1454 EXAMINATION: XR ELBOW, RIGHT CLINICAL INFORMATION: pain, injury COMPARISON: None available. TECHNIQUE: AP and lateral views of the right elbow. FINDINGS: No acute cortical disruption. No gross malalignment. No metallic or radiopaque foreign body. No subcutaneous emphysema. No gross joint effusion. No lytic or blastic lesions. XR/XR elbow RT min 3V IMPRESSION: No acute fracture or dislocation. Electronically signed by: Delroy Cole MD 06/14/2025 02:57 PM EDT Dictated By: Delroy Michel MD Signed By: Electronically signed by Delroy Bass MD 06/14/25 1457 EXAMINATION: XR KNEE, RIGHT CLINICAL INFORMATION: pain, injury COMPARISON: None available. TECHNIQUE: AP oblique and lateral views, of the right knee. FINDINGS: No acute cortical disruption or malalignment. Marginal osteophyte formation and sclerosis along the articular surface of the lateral femoral condyle and lateral tibial plateau. Asymmetric joint space narrowing involving mostly the lateral compartment. Suprapatellar bursa joint effusion, moderate volume. Vascular calcification. Osteopenia versus osteoporosis. XR/XR knee RT 3V IMPRESSION: Bicompartmental atherosclerosis without acute fracture or dislocation. Suprapatellar bursa joint effusion, moderate volume. Atherosclerosis disease, peripheral. Electronically signed by: Delroy Cole MD 06/14/2025 02:57 PM EDT RP Dictated By: Delroy Michel MD Signed By: Electronically signed by Delroy Bass MD 06/14/25 1457 EXAMINATION: XR HAND, RIGHT CLINICAL INFORMATION: pain, injury COMPARISON: None available. TECHNIQUE: PA, lateral, and oblique views of the right hand. FINDINGS: No acute cortical disruption or malalignment. No lytic or blastic lesions. No subcutaneous emphysema. No metallic or radiopaque foreign body. XR/XR hand RT 2V IMPRESSION: Negative for acute fracture or dislocation. Electronically signed by: Delroy Cole MD 06/14/2025 02:53 PM EDT Dictated By: Delroy Michel MD Signed By: Electronically signed by Delroy Bass MD 06/14/25 1453 Report Number: [id number]: Total DLP = 1245.20 mGy-cm EXAMINATION: CT CERVICAL SPINE WITHOUT CONTRAST CLINICAL INFORMATION: Status post fall. COMPARISON: None available. TECHNIQUE: Contiguous axial images through the cervical spine using 3 mm collimation with bone and soft tissue algorithm. Sagittal and coronal reformatted images acquired. DLP: 401.[address] examination was performed using dose optimization techniques as appropriate, variously including the following: *Automated exposure control *Adjustment of mA and/or kV according to patient size (this includes techniques or standardized protocols for targeted exams where dose is matched to indication/reason for exam; i.e. extremities or head) *Use of iterative reconstruction technique FINDINGS: Patient motion artifact. Craniocervical junction is intact with normal alignment between the occipital condyles and lateral masses of C1. Degenerative changes in the periodontal C1 region. Multilevel syndesmophyte formation and marginal 5 formation and subchondral cyst formation decreased intervertebral disc height from C3-4 to C6-7. Grade 1 anterolisthesis C4-5 and C7-T1 likely degenerative. Multilevel facet joint hypertrophy mostly on the left side of C3-4 C4-5 and the right side of C6-7. C1 is intact. C2 is intact. C3 is intact. C4 is intact. C5 is intact. C6 is intact. C7 is intact. No gross prevertebral compartment hematoma. Mixed plaques in the right ICA. Thyroid gland is not enlarged. CT/CT cervical spine wo IV con IMPRESSION: Multilevel cervical spondylosis resulting in central spinal canal stenosis at C5-6 and to a lesser extent C4-5 and C3-4 without acute fracture or trauma- related listhesis. Mixed plaques, right ICA. Fleischner guidelines were followed. Electronically signed by: Delroy Cole MD 06/14/2025 02:50 PM EDT RP Dictated By: Delroy Michel MD Signed By: Electronically signed by Delroy Bass MD 06/14/25 1450 EXAMINATION: XR HIP, RIGHT CLINICAL INFORMATION: pain, injury COMPARISON: None available. TECHNIQUE: AP and oblique views of the right hip. AP view pelvis. FINDINGS: No acute cortical disruption or gross malalignment. Degenerative changes in the coxofemoral joints. Spondylosis at L4-5 and L5-S1. Vascular calcifications. Vascular clips in the right inguinal region. Degenerative changes in the symphysis pubis. XR/XR hip RT w PEL1V IMPRESSION: No acute fracture or dislocation, right hip. Moderate osteoarthrosis/osteoarthritis, right hip. Atherosclerosis disease. Spondylosis, L5-S1. Electronically signed by: Delroy Cole MD 06/14/2025 02:55 PM EDT RP Dictated By: Delroy Michel MD Signed By: Electronically signed by Delroy Bass MD 06/14/25 1455 EXAMINATION: XR SHOULDER, RIGHT CLINICAL INFORMATION: post-reduction COMPARISON: June 14, 2025 at 221. TECHNIQUE: AP view of the right shoulder. FINDINGS: Normal alignment. Acute on chronic pulmonary disease should be considered.. XR/XR shoulder RT min 2V IMPRESSION: Satisfactory post reduction. Electronically signed by: Delroy Cole MD 06/14/2025 03:09 PM EDT RP Dictated By: Delroy Michel MD Signed By: Electronically signed by Delroy Bass MD 06/14/25 1509 Radiology Impression Discussion of test interpretation with radiology: I have reviewed the radiologist's reading. Independent Historian Clinical information obtained from an independent historian. History obtained from or confirmed by: EMS (EMS provided additional history and confirmed the history provided by the patient. ) Critical Care Time Critical Care Time Critical Care Time: Yes Total Critical Care Time: 34 Attestation: I spent 34 minutes of Critical Care Time with this patient. This does not include time spent on separately reported billable procedures. Discharge Plan Discharge Clinical Impression: Dislocated shoulder, Fall Patient Disposition: Home, Self-Care Instructions: Shoulder Dislocation (ED), Fall Prevention for Older Adults (ED) Additional Instructions: Your right shoulder was dislocated and we successfully reduced it (put it back into place). You should wear your sling until told to stop by the orthopedic team. Follow up with the orthopedic team. IF you are prescribed home medications and/or you are taking over the counter medications at home - it is very important you continue to do so as prescribed / directed unless told otherwise. Follow up with your primary care provider. Return to the emergency department immediately if your symptoms worsen or if you develop any numbness, tingling, dizziness, shortness of breath, difficulty breathing, chest pain, blurry vision, loss of vision, nausea, vomiting, abdominal pain, fever, chills, back pain, or any other complaints. Please see the information below about our Patient Portal. If you are not yet enrolled in the [facility] Patient Portal, you will receive an enrollment email invitation following your visit to any [facility] setting. You may also self-enroll in the Patient Portal by visiting our website: [email or web address] The following information is required to access the Patient Portal: - Your [facility] Medical Record Number - Your personal home email address (must match what is in your electronic medical record, Registration staff can assist with this) - Name - Date of Capabilities of the Patient Portal: - Message some providers - View upcoming appointments - Access your health summary, medical history, and visit history - View current conditions and allergies - View procedure and lab results - View your medications, including guidelines, side effects, and precautions - Complete pre-appointment questionnaires requested by your provider - Ready summary reports of your office visits and procedures To access the Patient Portal Mobile [employer], follow these directions: - Search [employer] in the [employer] Store or [employer] Store - Download the Kate - Search for [facility] - Enter your login/password Prescriptions: No Action metoprolol succinate 50 mg tablet extended release 24 hr 50 mg PO DAILY aspirin [Adult Low Dose Aspirin] 81 mg tablet,delayed release (DR/EC) 81 mg PO DAILY hydrochlorothiazide 12.5 mg capsule 12.5 mg PO DAILY lisinopril 40 mg tablet 40 mg PO DAILY nifedipine 30 mg tablet extended release 30 mg PO DAILY Referrals: [facility] Orthopedic Surgeons [Provider Group] Referral Note: Call to establish and follow up with the orthopedic team. Douglas Aguero PA [Primary Care Provider, Internal Medicine] Interventions: ED Discharge Assessment Last Done: 06/14/25 16:04 Print Language: Faroese
--- NOTE | 2025-06-14 13:57 | PC.NURSE ---
Pt lives in independent living, he tripped over his friends cane and had a fall to the ground, neck pain noed, C-collar in place, right shoulder deformity noted, +CMS. Pt is emotional at this time, emotional support provided, placed on monitor, call larry within reach.
--- OUTSIDE RECORDS SUMMARY | 2025-06-14 15:19 | XMS_ITS | Clinical Summary ---
Author Organization [address] Address [address] [place] [phone] Phone Care Team Providers Care Steel Pan Form Placing Supervisor Name Role Phone Douglas Aguero Primary Care Provider [phone] Allergies Active Allergy Reactions Criticality Noted Date Comments Hay Fever And Allergy Relief 025 Medications NIFEdipine (ADALAT CC) 30 mg 24 hr tablet Take 1 tablet (30 mg total) by mouth 1 (one) time each day. 09/11/20 23 Active aspirin 81 mg EC tablet Take 1 tablet (81 mg total) by mouth 1 (one) time each day. Active multivitamin with minerals tablet Take 1 tablet by mouth 1 (one) time each day. Active lisinopril (PRINIVIL,ZESTRI L) 40 mg tablet TAKE 1 TABLET BY MOUTH EVERY DAY 90 tablet 3 11/23/19 25 Active metoprolol succinate (TOPROL-XL) 50 mg 24 hr tablet TAKE 1 TABLET BY MOUTH EVERY DAY 90 tablet 3 02/23/20 25 Active cholecalciferol (VITAMIN D-3) 25 mcg (1,000 unit) capsuleIndicatio ns:Secondary hypertension,Par oxysmal atrial fibrillation (CMS/HCC V24, CMS/HCC V28),Stage 3 chronic kidney disease, unspecified whether stage 3a or 3b CKD (CMS/HCC V24, CMS/HCC V28),Benign prostatic hyperplasia with lower urinary tract symptoms, symptom details unspecified,Anxi ety,[place] (hard of hearing),Chronic cough Take 1 capsule (1,000 Units total) by mouth 1 (one) time each day. 90 capsule 3 04/02/20 25 Active hydroCHLOROthiaz kris (MICROZIDE) 12.5 mg capsule TAKE 1 CAPSULE BY MOUTH EVERY DAY IN THE MORNING 90 capsule 3 06/14/20 25 Active hydroCHLOROthiaz kris (MICROZIDE) 12.5 mg capsule Take 1 capsule (12.5 mg total) by mouth 1 (one) time each day in the morning. 03/01/20 23 025 Discontinued Active Problems Problem Noted Date Diagnosed Date CKD (chronic kidney disease) stage 3, GFR 30-59 ml/min ([facility] V24, [facility] V28) 02/16/2022 Assessment & Plan (09/25/2024 2:54 [...] of both feet 02/25/2017 Paroxysmal atrial fibrillation ([facility] V24, [facility] V28) 12/28/2014 Assessment & Plan (09/25/2024 2:54 [...] 12:45 PM EDT Office Visit Adult Medicine [address] [phone] Douglas Aguero PA Secondary hypertension (Primary Dx); Paroxysmal atrial fibrillation ([facility]/HCC V24, CMS/HCC V28); Stage 3 chronic kidney disease, unspecified whether stage 3a or 3b CKD (CMS/HCC V24, CMS/HCC V28); Benign prostatic hyperplasia with lower urinary tract symptoms, symptom details unspecified; Anxiety; [place] (hard of hearing); Chronic cough from Last [...] Left PROCEDURE: HISTORICAL HERNIA REPAIR/ING; COMMENT: dr [id number] OTHER SURGICAL HISTORY 12/16 PROCEDURE: HISTORICAL MITRAL [...] (HCC) Family history of melanoma 03/06/2016 DX:Bety garcia history of melanoma; COMMENT: Family history of melanoma One of three brothers Acute left-sided low back pa in with left-sided sciatica 04/13/2018 DX:Acute left-sided low back pain with left-sided sciatica CKD (chronic kidney disease) stage 3, GFR 30-59 ml/min (CMS/HCC V24, CMS/HCC V28) 02/16/2022 DX:CKD (chronic kidney disea se) stage 3, GFR 30-59 ml/min (HCC) Family History Medical History Relation Name Comments [...] your loved ones. For example, child and adolescent psychiatrist or elderly care for an older adult? [...] EST Office Visit [facility] - [address] [phone] Douglas Aguero PA [address], [place] 12/30/2025 1:15 PM EST Office Visit Nephrology - [address] [phone] Rahul Tejeda MD [address] [phone] Health Maintenance Due Date Last Done Comments RSV Immunization Adult Patients (1 - 1-dose 75+ series) 2019 Hepatitis B Vaccines (2 of 3 - 19+ 3-dose series) 07/03/2023 06/05/2023 COVID-19 Vaccine (6 - Pfizer risk season) 2025 08/14/2024, 09/19/2023, 10/17/2021, Additional history exists Influenza Vaccine (#1) 2025 , 09/11/2023, 08/27/2022, Additional history exists Social Influencers of Health Screening 09/24/2025 09/24/2024 Falls Risk Assessment 09/25/2025 09/25/2024 Hypertension/CHF/CAD Annual BMP Blood Test 03/25/2026 03/25/2025, 12/18/2024, 09/21/2024, Additional history exists DTaP,Tdap,and Td Vaccines (3 - Td or Tdap) 09/08/2029 09/08/2019, 06/04/2008 Cholesterol Screening (Lipid Panel) 03/25/2030 03/25/2025, 09/21/2024, 05/06/2024, Additional history exists Pneumococcal Vaccine: 50+ Years Completed 12/28/2014, 03/02/2011 Zoster Vaccines Completed 06/05/2023, 05/0 02/2023, 12/25/2012 Depression Screening Completed 03/30/2025 Colorectal Cancer Screening: Stool Based Tests (FOBT/FIT) [...] free and complexed (03/25/2025 2:20 PM EDT) PSA 1.47 0.00 - 4.00 ng/mL LAB CHEMISTRY METHOD 03/25/2025 6:04 PM EDT [facility] PSA, Complexed 0.94 0.00 - 3.00 ng/mL LAB CHEMISTRY METHOD 03/25/2025 6:04 PM EDT [facility] PSA, Free 0.5 ng/mL LAB CHEMISTRY METHOD 03/25/2025 6:04 PM EDT [facility] PSA, Free Pct 34.0 >25.0 % LAB CHEMISTRY METHOD 03/25/2025 6:04 PM EDT [facility] Blood Venous blood specimen / Unknown Venipuncture / Unknown 03/25/2025 2:20 PM EDT 03/25/2025 2:20 PM EDT Narrative [facility] - 03/25/2025 6:04 PM EDT Free PSA is a calculated value. The diagnostic usefulness of % free PSA has not been established in patients with Total PSA below 2.6 or above 10 ng/mL. This test was performed using the Centaur Chemiluminescent method. PSA values obtained with other methods cannot be used interchangeably. us Douglas HERMAN LAB BLOOD ORDERABLES Lyly jerome Result [facility] [address] [place] [address], * (ABNORMAL) Lipid panel with reflex to direct LDL (03/25/2025 2:20 PM EDT) Cholesterol 190 0 - 200 mg/dL LAB CHEMISTRY METHOD 03/25/2025 5:05 PM EDT [facility] Triglycerides 92 0 - 150 mg/dL LAB CHEMISTRY METHOD 03/25/2025 5:05 PM EDT [facility] HDL 68 >=40 mg/dL LAB CHEMISTRY METHOD 03/25/2025 5:05 PM EDT [facility] LDL Calculated 104(H) 0 - 100 mg/dL LAB CHEMISTRY METHOD 03/25/2025 5:05 PM EDT [facility] VLDL Cholesterol Chan 18.4 mg/dL LAB CHEMISTRY METHOD 03/25/2025 5:05 PM EDT [facility] Non HDL Chol. (LDL+VLDL) 122 <145 mg/dL LAB CHEMISTRY METHOD 03/25/2025 5:05 PM EDT [facility] Chol/HDL Ratio 2.8 0.0 - 4.4 LAB CHEMISTRY METHOD 03/25/2025 5:05 PM EDT [facility] Blood Venous blood specimen / Unknown Venipuncture / Unknown 03/25/2025 2:20 PM EDT 03/25/2025 2:20 PM EDT Douglas HERMAN LAB BLOOD ORDERABLES Lyly l Result [facility] [address] [place] [address], * (ABNORMAL) CBC auto differential (03/25/2025 2:20 PM EDT) WBC 9.0 4.8 - 10.8 K/mcL LAB HEMETOLOGY METHOD 03/25/2025 4:42 PM EDT [facility] RBC 5.40 4.50 - 5.50 M/mcL LAB HEMETOLOGY METHOD 03/25/2025 4:42 PM EDT [facility] Hemoglobin 16.8 13.5 - 17.5 g/dL LAB HEMETOLOGY METHOD 03/25/2025 4:42 PM EDT [facility] Hematocrit 50.7 42.0 - 54.0 % LAB HEMETOLOGY METHOD 03/25/2025 4:42 PM EDT [facility] MCV 94.2 79.0 - 98.0 FL LAB HEMETOLOGY METHOD 03/25/2025 4:42 PM EDT [facility] MCH 31.2 27.0 - 32.0 pcg LAB HEMETOLOGY METHOD 03/25/2025 4:42 PM EDT [facility] MCHC 33.1 32.0 - 37.0 g/dL LAB HEMETOLOGY METHOD 03/25/2025 4:42 PM EDT [facility] RDW 13.4 11.0 - 15.0 % LAB HEMETOLOGY METHOD 03/25/2025 4:42 PM EDT [facility] Platelets 183 130 - 400 K/mcL LAB HEMETOLOGY METHOD 03/25/2025 4:42 PM [facility] MPV 11.6(H) 7.0 - 11.0 FL LAB HEMETOLOGY METHOD 03/25/2025 4:42 PM EDT [facility] NRBC 0.0 <1.0 % LAB HEMETOLOGY METHOD 03/25/2025 4:42 PM EDT [facility] NRBC Absolute 0.00 <0.10 K/mcL LAB HEMETOLOGY METHOD 03/25/2025 4:42 PM T [facility] Neutrophils Relative 67.2 % LAB HEMETOLOGY METHOD 03/25/2025 4:42 PM EDT [facility] Lymphocytes Relative 18.0 % LAB HEMETOLOGY METHOD 03/25/2025 4:42 PM EDT [facility] Monocytes Relative 10.2 % LAB HEMETOLOGY METHOD 03/25/2025 4:42 PM EDT [facility] Eosinophils Relative 3.2 % [facility] Basophils Relative 0.8 % LAB HEMETOLOGY METHOD 03/25/2025 4:42 PM EDT [facility] Immature Granulocytes Relative 0.6 % LAB HEMETOLOGY METHOD 03/25/2025 4:42 PM EDT [facility] Neutrophils Absolute 6.05 1.50 - 7.00 K/mcL LAB HEMETOLOGY METHOD 03/25/2025 4:42 PM EDT [facility] Lymphocytes Absolute 1.62 1.00 - 5.00 K/mcL LAB HEMETOLOGY METHOD 03/25/2025 4:42 PM EDT [facility] Monocytes Absolute 0.92 0.20 - 1.00 K/mcL LAB HEMETOLOGY METHOD 03/25/2025 4:42 PM EDT [facility] Eosinophils Absolute 0.29 0.00 - 0.50 K/mcL LAB HEMETOLOGY METHOD 03/25/2025 4:42 PM EDT [facility] Basophils Absolute 0.07 0.00 - 0.20 K/mcL LAB HEMETOLOGY METHOD 03/25/2025 4:42 PM EDT [facility] Immature Granulocytes Absolute 0.05(H) 0.00 - 0.03 K/mcL LAB HEMETOLOGY METHOD 03/25/2025 4:42 PM EDT [facility] Blood Venous blood specimen / Unknown Venipuncture / Unknown 03/25/2025 2:20 PM EDT 03/25/2025 2:20 PM EDT Douglas HERMAN LAB BLOOD ORDERABLES Lyly l Result [facility] [address] [place] [address], * Vitamin D 25 hydroxy (03/25/2025 2:20 PM EDT) Vit D, 25-Hydroxy 40.0 30.0 - 80.0 ng/mL LAB CHEMISTRY METHOD 03/25/2025 6:04 PM [facility] Blood Venous blood specimen / Unknown Venipuncture / Unknown 03/25/2025 2:20 PM EDT 03/25/2025 2:20 PM EDT us Douglas HERMAN LAB BLOOD ORDERABLES Lyly l Result [facility] [address] [place] [address], * (ABNORMAL) Comprehensive metabolic panel (03/25/2025 2:20 PM EDT) Sodium 139 133 - 145 mmol/L LAB CHEMISTRY METHOD 03/25/2025 5:05 PM [facility] Potassium 4.2 3.5 - 5.5 mmol/L LAB CHEMISTRY METHOD 03/25/2025 5:05 PM [facility] Chloride 102 96 - 110 mmol/L LAB CHEMISTRY METHOD 03/25/2025 5:05 PM [facility] CO2 31 21 - 32 mmol/L LAB CHEMISTRY METHOD 03/25/2025 5:05 PM [facility] Anion Gap 6 3 - 11 LAB CHEMISTRY METHOD 03/25/2025 5:05 PM [facility] Glucose 94 70 - 100 mg/dL LAB CHEMISTRY METHOD 03/25/2025 5:05 PM [facility] BUN 23 5 - 25 mg/dL LAB CHEMISTRY METHOD 03/25/2025 5:05 PM [facility] Creatinine 1.62(H) 0.70 - 1.30 mg/dL LAB CHEMISTRY METHOD 03/25/2025 5:05 PM [facility] eGFR 43(L) >=60 mL/min/1. 73m2 LAB CHEMISTRY METHOD 03/25/2025 5:05 PM [facility] Comment:Calculation based on the Chronic Kidney Disease Epidemiology Collaboration (CKD-EPI) equation refit without adjustment for race. BUN/Creatinine Ratio 14.2 LAB CHEMISTRY METHOD 03/25/2025 5:05 PM [facility] Calcium 9.1 8.5 - 10.5 mg/dL LAB CHEMISTRY METHOD 03/25/2025 5:05 PM [facility] AST (SGOT) 26 10 - 42 unit/L LAB CHEMISTRY METHOD 03/25/2025 5:05 PM [facility] ALT (SGPT) 27 10 - 60 unit/L LAB CHEMISTRY METHOD 03/25/2025 5:05 PM [facility] Alkaline Phosphatase 65 42 - 121 unit/L LAB CHEMISTRY METHOD 03/25/2025 5:05 PM [facility] Total Protein 7.9 6.0 - 8.0 g/dL LAB CHEMISTRY METHOD 03/25/2025 5:05 PM [facility] Albumin 3.7 3.2 - 5.0 g/dL LAB CHEMISTRY METHOD 03/25/2025 5:05 PM [facility] Total Bilirubin 0.6 0.0 - 1.4 mg/dL LAB CHEMISTRY METHOD 03/25/2025 5:05 PM [facility] Blood Venous blood specimen / Unknown Venipuncture / Unknown 03/25/2025 2:20 PM EDT 03/25/2025 2:20 PM EDT us Douglas HERMAN LAB BLOOD ORDERABLES Lyly l Result [facility] [address] [place] [address], from Last 3 Months Insurance [employer] Care Teams Steel Pan Form Placing Supervisor Relationship Specialty Start Date End Date Douglas Aguero PA [address] [place] [address] PCP - General Internal Medicine 12/28/20
--- OUTSIDE RECORDS SUMMARY | 2025-06-14 15:19 | XMS_ITS | Patient Health Record ---
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, with unspecified presence of clinical manifestation (I70.203) Active confirmed Q7(A), Q8(2B), Q9(1B,2 C) Vital Signs Blood pressure diastolic 65 mm Hg 04/09/2025 Height 6ft 2in in 04/09/2025 Blood pressure systolic 135 mm Hg 04/09/2025 Weight 218 lbs 04/09/2025 BMI 27.99 kg/m2 04/09/2025 Procedures Procedure Date Ordered Date Performed Result Body Sit e 61712-TAGNAJF NAIL, 6 OR MORE 10/14/2024 N/A 15764-LSZR SKIN LESIONS, OVER 4 10/14/2024 N/A 12991-WTEQDXY NAIL, 6 OR MORE 01/08/2025 N/A 45873-EFME SKIN LESIONS, OVER 4 01/08/2025 N/A 00065-TAPGDDE NAIL, 6 OR MORE 04/09/2025 N/A 71667-ZZQQ SKIN LESIONS, OVER 4 04/09/2025 N/A Encounters Encounter Location Date [facility] [place] [address] [place] [address] 07/13/2024 Bubba Avendaño Ingrowing nail L60.0 ; [...] leg I87.2 and Plantar fascial fibromatosis M72.2 [facility] [address] [address] 10/14/2024 Hakeem Ordonez 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, with unspecified presence of clinical manifestation I70.203 ; Tinea unguium B35.1 ; Pain in right toe(s) M79.674 ; Pain in left toe(s) M79.675 and Xerosis of skin L85.[address] [address] 01/08/2025 Hakeem José Luis 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, with unspecified presence of clinical manifestation I70.203 ; Tinea unguium B35.1 ; Pain in right toe(s) M79.674 ; Pain in left toe(s) M79.675 and Xerosis of skin L85.[address] [address] 04/09/2025 Hakeem José Luis 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, with unspecified presence of clinical manifestation I70.203 ; Tinea unguium B35.1 ; Pain in right toe(s) M79.674 and Pain in left toe(s) M79.[address] [address] 07/13/2024 Bubba Avendaño Assessments Encounter Date Diagnosis (ICD Code) Assessment Notes Treatment Notes Treatment Clinical Notes Section Notes 07/13/2024 Ingrowing nail (ICD-10 - L60.0) 07/13/2024 Pain in left foot (ICD-10 - M79.672) 10/14/2024 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, with unspecified presence of clinical manifestation (ICD-10 - I70.203) Q7(A), Q8(2B), Q9(1B,2C) 01/08/2025 Tinea unguium (ICD-10 - B35.1) 01/08/2025 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, with unspecified presence of clinical manifestation (ICD-10 - I70.203) Q7(A), Q8(2B), Q9(1B,2C) 04/09/2025 Tinea unguium (ICD-10 - B35.1) 04/09/2025 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, with unspecified presence of clinical manifestation (ICD-10 - I70.203) Q7(A), Q8(2B), Q9(1B,2C) 04/09/2025 Pain in right toe(s) (ICD-10 - M79.674) 01/08/2025 Pain in right toe(s) (ICD-10 - M79.674) 10/14/2024 Tinea unguium (ICD-10 - B35.1) 07/13/2024 Pain in right foot (ICD-10 - M79.671) 07/13/2024 Tinea unguium (ICD-10 - B35.1) 10/14/2024 Pain in right toe(s) (ICD-10 - M79.674) 01/08/2025 Pain in left toe(s) (ICD-10 - M79.675) 04/09/2025 Pain in left toe(s) (ICD-10 - M79.675) 01/08/2025 Xerosis of skin (ICD-10 - L85.3) 10/14/2024 Pain in left toe(s) (ICD-10 - M79.675) 07/13/2024 Pain in right toe(s) (ICD-10 - M79.674) 07/13/2024 Pain in left toe(s) (ICD-10 - M79.675) 10/14/2024 Xerosis of skin (ICD-10 - L85.3) 07/13/2024 Metatarsalgia, right foot (ICD-10 - M77.41) 07/13/2024 Other hammer toe(s) (acquired), right foot (ICD-10 - M20.41) 07/13/2024 Primary osteoarthritis, right ankle and foot (ICD-10 - M19.071) 07/13/2024 Metatarsalgia, left foot (ICD-10 - M77.42) 07/13/2024 Other hammer toe(s) (acquired), left foot (ICD-10 - M20.42) 07/13/2024 Venous insufficiency of left leg (ICD-10 - I87.2) 07/13/2024 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) Plan Of Treatment Pending Test Test Name Order Date X ray : Foot, left 3V 01/29/2022 X ray : Foot, right 3V 03/24/2020 37990-BYYWYXV NAIL, 6 OR MORE 10/14/2024 02937-WNUHEQU NAIL, 6 OR MORE 01/08/2025 39686-OISQYXG NAIL, 6 OR MORE 04/09/2025 87799 I&D ABSCESS- SIMPLE,SINGLE 022 44458-KQBX SKIN LESIONS, OVER 4 10/14/20 24 84210-AFIC SKIN LESIONS, OVER 4 04/09/20 25 15374-QTTJ SKIN LESIONS, OVER 4 01/09/20 25 Next Appt Details Provider Name:Hakeem Ordonez , 07/16/2025 01:00:00 PM, [address] [place], [address], Insurance Providers Payer Name Payer Address Payer Phone Subscriber Number Group Number Insured Name Patient Relationship to Insured Coverage Start Date Coverage End Date [facility] ([facility]) [address] [place] [address] [id number] [facility] Obinna Phan Self - patient is the insured Medical (General) History Medical History History ICD Code Anxiety Arthritis Back,Hip,and Knee pain Depression Hiatal hernia High blood pressure Sciatica Warts Measles Mumps Chicken pox Transfusions Kidney disease- stage 3 Kidney disease Surgical History Surgery Date(Month/Year) mitral valve repair 2011
[2025-06-14 16:04] VITALS: BP 218/81; PULSE 77; RESP 24; TEMP 36.5; O2SAT 95
== END 2025-06-14 16:05 | disposition home or self-care (01) ==
PROVIDERS: Emergency Provider Emergency Medicine; PCP Physician Assistant Medical
DX: S43.084A Other dislocation of right shoulder joint, initial encounter (principal); W01.0XXA Fall on same level from slipping, tripping and stumbling without subsequent striking against object, initial encounter; M25.461 Effusion, right knee; M25.561 Pain in right knee; M79.641 Pain in right hand; I10 Essential (primary) hypertension; Y93.89 Activity, other specified; Y92.098 Other place in other non-institutional residence as the place of occurrence of the external cause; Y99.8 Other external cause status; Z79.899 Other long term (current) drug therapy; Z86.79 Personal history of other diseases of the circulatory system
CPT/HCPCS: 23650; 70450; 72125; 73030; 73080; 73120; 73502; 73562; 99284

== ENCOUNTER → 2025-06-14 13:47 | Outpatient (BNV) | payer OTHER, SELFPAY | PROVIDERS: PCP Physician Assistant Medical; Visit Provider Radiology Diagnostic Radiology | DX: M47.812 Spondylosis without myelopathy or radiculopathy, cervical region (principal); I67.2 Cerebral atherosclerosis; M16.11 Unilateral primary osteoarthritis, right hip; M25.461 Effusion, right knee; S43.014A Anterior dislocation of right humerus, initial encounter; S43.014D Anterior dislocation of right humerus, subsequent encounter; M25.521 Pain in right elbow; M79.641 Pain in right hand | CPT/HCPCS: 70450; 72125; 73030; 73080; 73120; 73502; 73562 ==

== ENCOUNTER 2025-06-28 14:36 | Outpatient (AMB) | payer OTHER, SELFPAY ==
--- OUTSIDE RECORDS SUMMARY | 2025-01-22 08:30 | XMS_ITS ---
Author Organization [facility] Address [address] [place] [address] Care Team Providers Care Extract Wringer Name Role Phone Douglas Rashid Primary Care Provider Unav ailable Hakeem Ordonez Unavailable [phone] Encounters Encounter Location Date Provider Diagnosis [address] [address] 01/22/2025 Hakeem Ordonez Plan Of Treatment Next Appt Details Provider Name:Hakeem Ordonez , 07/16/2025 01:00:00 PM, [address] [place], [address], Progress Notes * Obinna STOCKTON NDOB:[birth year] (79 yo M)Acc No.[id number]:01/22/2025 Progress Note Patient: Eduard MARTINEZMICKI Obinna Calix Provider: Judy Ordonez DPM :1945 A ge:79 Y S ex:Male Date:01/22/2025 Address:[address] [place] [address] [address] [id number] Pcp:BATSHEVA Melchor Subjective: * Chief Complaints: * [...] 0 01/22/2025 Generated for Jennyfer Hummel on: 0 06/28/2025 04:21 PM EDT
--- NOTE | 2025-06-28 14:45 | MHC.OFFVIS ---
Vital Signs 06/28/25 14:51 Height 6 ft 2 in Weight 230 lb BMI 29.5 Intake Visit Reasons: OV- 2 wks Right shoulder s/p dislocation Intake Note: Obinna is an 79 year old male who presents today for an ER follow right shoulder dislocation. Patient presented to [facility] ER by ambulance on 06/14/25 after he had a trip and fall over his friends cane. While in ER his shoulder was reduced, placed in a sling and referred to orthopedics. Patient reports having itchiness on his skin with sing wear. He has difficulty with sleeping. States his pain is moderate and at times sharp with certain shoulder movements. He is unable to take NSAID's due to his blood pressure. Allergies No Known Drug Allergies (NO KNOWN DRUG ALLERGIES) Allergy (Unknown, Verified 06/28/25 14:52) NONE HPI HPI OV- 2 wks Right shoulder s/p dislocation: Details: 79-year-old gentleman presents to the office today for an injury he sustained to his right shoulder on 06/14/2025 after tripping and falling. He was seen in the emergency department where he was found to have a right shoulder dislocation which was reduced successfully in the emergency department. The patient was given a sling and referred to our office for ortho eval. [facility] Medical History Ascending aortic aneurysm Labile blood pressure Postoperative atrial fibrillation Mitral regurgitation Mitral valve prolapse HTN (hypertension) Surgical History H/O mitral valve repair Family History Father No problems noted. Mother No problems noted. Social History (Updated 06/28/25 @ 14:50 by MENDOZA Thakkar) Patient Tobacco Use Status: Former Tobacco user Current occupational status: retired Current occupation: right hand dominant Review of Systems Const All systems reviewed & are unremarkable except as noted in HPI and below Physical Exam Vital Signs: BMI result Body Mass Index 29.5 Extrem Other: Right shoulder normal to inspection he does have significant ecchymosis along the shoulder which extends into the elbow region and forearm. No tenderness over the elbow. No tenderness over the distal radius. I can passively forward flex his right shoulder to 90 degrees. He can externally rotate to 40 degrees. He is neurovascularly intact. Results Reviewed Results Reviewed: X-rays of the right shoulder from the emergency department on 06/14 show a successfully reduced shoulder without evidence of fracture. Assessment & Plan Assessment & Plan (1) Closed dislocation of right shoulder: Code(s): S43.004A - Unspecified dislocation of right shoulder joint, initial encounter Category: Medical Plan: I stressed the importance of physical therapy exercises with patient and demonstrated at length exercises to help relax the shoulders and work on scapular stabilization and range of motion. I also placed an order for physical therapy and gave the patient the information to call and make an appointment. He will discontinue the use of the sling. He can do any activities that do not cause pain using caution with overhead reaching or lifting. I explained to the patient overall recovery could take anywhere from 8-12 weeks. If symptoms persist or worsen in his any concerns he can certainly contact our office otherwise follow up as needed. Orders: Orders PT Evaluation and Treatment 06/28/25 S43.004A - Unspecified dislocation of right shoulder joint, initial encounter Coding Level of Care Code New Pt Level 3 (83908) Complex EM visit Add On G2211 Diagnoses Closed dislocation of right shoulder S43.004A
[2025-06-28 14:51] VITALS: BMI 29.5
--- OUTSIDE RECORDS SUMMARY | 2025-06-28 16:21 | XMS_ITS | Patient Health Record ---
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, with unspecified presence of clinical manifestation (I70.203) Active confirmed Q7(A), Q8(2B), Q9(1B,2 C) Vital Signs Blood pressure diastolic 65 mm Hg 04/09/2025 Height 6ft 2in in 04/09/2025 Blood pressure systolic 135 mm Hg 04/09/2025 Weight 218 lbs 04/09/2025 BMI 27.99 kg/m2 04/09/2025 Procedures Procedure Date Ordered Date Performed Result Body Sit e 93551-BYLSIUM NAIL, 6 OR MORE 10/14/2024 N/A 49476-COGE SKIN LESIONS, OVER 4 10/14/2024 N/A 53291-SAFXLFE NAIL, 6 OR MORE 01/08/2025 N/A 97263-JMYT SKIN LESIONS, OVER 4 01/08/2025 N/A 65350-ODSBOZB NAIL, 6 OR MORE 04/09/2025 N/A 03048-KUKB SKIN LESIONS, OVER 4 04/09/2025 N/A Encounters Encounter Location Date [facility] [address] [place] [address] 07/13/2024 Bubba Avendaño Ingrowing nail L60.0 ; [...] leg I87.2 and Plantar fascial fibromatosis M72.2 [facility] [address] [address] 10/14/2024 Hakeem Ordonez 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, with unspecified presence of clinical manifestation I70.203 ; Tinea unguium B35.1 ; Pain in right toe(s) M79.674 ; Pain in left toe(s) M79.675 and Xerosis of skin L85.[address] [address] 01/08/2025 Hakeem José Luis 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, with unspecified presence of clinical manifestation I70.203 ; Tinea unguium B35.1 ; Pain in right toe(s) M79.674 ; Pain in left toe(s) M79.675 and Xerosis of skin L85.[address] [address] 04/09/2025 Hakeem José Luis 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, with unspecified presence of clinical manifestation I70.203 ; Tinea unguium B35.1 ; Pain in right toe(s) M79.674 and Pain in left toe(s) M79.[address] [address] 07/13/2024 Bubba Avendaño Assessments Encounter Date Diagnosis (ICD Code) Assessment Notes Treatment Notes Treatment Clinical Notes Section Notes 07/13/2024 Ingrowing nail (ICD-10 - L60.0) 07/13/2024 Pain in left foot (ICD-10 - M79.672) 10/14/2024 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, with unspecified presence of clinical manifestation (ICD-10 - I70.203) Q7(A), Q8(2B), Q9(1B,2C) 01/08/2025 Tinea unguium (ICD-10 - B35.1) 01/08/2025 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, with unspecified presence of clinical manifestation (ICD-10 - I70.203) Q7(A), Q8(2B), Q9(1B,2C) 04/09/2025 Tinea unguium (ICD-10 - B35.1) 04/09/2025 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, with unspecified presence of clinical manifestation (ICD-10 - I70.203) Q7(A), Q8(2B), Q9(1B,2C) 04/09/2025 Pain in right toe(s) (ICD-10 - M79.674) 01/08/2025 Pain in right toe(s) (ICD-10 - M79.674) 10/14/2024 Tinea unguium (ICD-10 - B35.1) 07/13/2024 Pain in right foot (ICD-10 - M79.671) 07/13/2024 Tinea unguium (ICD-10 - B35.1) 04/09/2025 Pain in left toe(s) (ICD-10 - M79.675) 01/08/2025 Pain in left toe(s) (ICD-10 - M79.675) 10/14/2024 Pain in right toe(s) (ICD-10 - M79.674) 01/08/2025 Xerosis of skin (ICD-10 - L85.3) [...] X ray : Foot, right 3V 03/24/2020 25091-OAUMPTR NAIL, 6 OR MORE 10/14/2024 81419-KLSCHVV NAIL, 6 OR MORE 01/08/2025 97728-TDVREDI NAIL, 6 OR MORE 04/09/2025 52052 I&D ABSCESS- SIMPLE,SINGLE 022 54527-CKQL SKIN LESIONS, OVER 4 10/14/20 24 92888-BHJB SKIN LESIONS, OVER 4 04/09/20 25 81540-JZVN SKIN LESIONS, OVER 4 01/09/20 25 Next Appt Details Provider Name:Hakeem Ordonez , 07/16/2025 01:00:00 PM, [address] [place], [address], Insurance Providers Payer Name Payer Address Payer Phone Subscriber Number Group Number Insured Name Patient Relationship to Insured Coverage Start Date Coverage End Date [facility] ([facility]) [address] [place] [address] [id number] [facility] Obinna Phan Self - patient is the insured Medical (General) History Medical History History ICD Code Anxiety Arthritis Back,Hip,and Knee pain Depression Hiatal hernia High blood pressure Sciatica Warts Measles Mumps Chicken pox Transfusions Kidney disease- stage 3 Kidney disease Surgical History Surgery Date(Month/Year) mitral valve repair 2011
--- OUTSIDE RECORDS SUMMARY | 2025-06-28 16:21 | XMS_ITS | Clinical Summary ---
Author Organization [address] Address [address] [place] [address] Phone Care Team Providers Care Print Developer Automatic Name Role Phone Douglas Aguero Primary Care Provider [phone] Allergies Active Allergy Reactions Criticality Noted Date [...] lower urinary tract symptoms, symptom details unspecified,Anxi ety,[place] (hard of hearing),Chronic cough Take 1 capsule [...] kidney disease) stage 3, GFR 30-59 ml/min ([facility] V24, [facility] V28) 02/16/2022 Assessment & Plan (09/25/2024 2:54 [...] of both feet 02/25/2017 Paroxysmal atrial fibrillation ([facility] V24, [facility] V28) 12/28/2014 Assessment & Plan [...] 12:45 PM EDT Office Visit Adult Medicine [address] [address] Douglas Aguero PA Secondary hypertension (Primary Dx); Paroxysmal atrial fibrillation ([facility]/HCC V24, CMS/HCC V28); Stage 3 chronic kidney disease, unspecified whether stage 3a or 3b CKD (CMS/HCC V24, CMS/HCC V28); Benign prostatic hyperplasia with lower urinary tract symptoms, symptom details unspecified; Anxiety; [place] (hard of hearing); Chronic cough from Last [...] Left PROCEDURE: HISTORICAL HERNIA REPAIR/ING; COMMENT: dr [id number] OTHER SURGICAL HISTORY 12/16 PROCEDURE: HISTORICAL MITRAL [...] care for your loved ones. For example, children's author or elderly care for an older adult? [...] EST Office Visit [facility] - [address] [phone] Douglas Aguero PA [address] [place], [place] 12/30/2025 1:15 PM EST Office Visit Nephrology - [address] [phone] Rahul Tejeda MD [address] [address] Health Maintenance Due Date Last Done Comments [...] Procedure Name Priority Date/Time Associated Diagnosis Comments EXTERNAL XRAY REPORT 06/14/2025 EXTERNAL XRAY REPORT 06/14/2025 EXTERNAL XRAY REPORT 06/14/2025 EXTERNAL XRAY REPORT 06/14/2025 EXTERNAL XRAY REPORT 06/14/2025 EXTERNAL XRAY REPORT 06/14/2025 EXTERNAL XRAY REPORT 06/14/2025 EXTERNAL XRAY REPORT 06/14/2025 EXTERNAL XRAY REPORT 06/14/2025 EXTERNAL XRAY REPORT 06/14/2025 EXTERNAL XRAY REPORT 06/14/2025 EXTERNAL XRAY REPORT 06/14/2025 COMPREHENSIVE METABOLIC PANEL Routine 03/25/2025 2:20 PM [...] V24, CMS/HCC V28) from Last 3 Months or Most Recently Relevant to Health Maintenance Results * External Xray Report (06/14/2025) Only the most recent of12 resultswithin the time period is included. Anatomical Region Laterality Modality Radiographic Zaira ging us Provider [facility] XR PROCEDURES Final Result * (ABNORMAL) Lipid panel with reflex to direct LDL (03/25/2025 2:20 PM EDT) Cholesterol 190 0 - 200 mg/dL LAB CHEMISTRY METHOD 03/25/2025 5:05 PM EDT [facility] Triglycerides 92 0 - 150 mg/dL LAB CHEMISTRY METHOD 03/25/2025 5:05 PM [facility] HDL 68 >=40 mg/dL LAB CHEMISTRY METHOD 03/25/2025 5:05 PM [facility] LDL Calculated 104(H) 0 - 100 mg/dL LAB CHEMISTRY METHOD 03/25/2025 5:05 PM [facility] VLDL Cholesterol Chan 18.4 mg/dL LAB CHEMISTRY METHOD 03/25/2025 5:05 PM [facility] Non HDL Chol. (LDL+VLDL) 122 <145 mg/dL LAB CHEMISTRY METHOD 03/25/2025 5:05 PM [facility] Chol/HDL Ratio 2.8 0.0 - 4.4 LAB CHEMISTRY METHOD 03/25/2025 5:05 PM [facility] Blood Venous blood specimen / Unknown Venipuncture / Unknown 03/25/2025 2:20 PM EDT 03/25/2025 2:20 PM EDT us [facility] BLOOD ORDERABLES Lyly l Result [facility] [address] [place] [address], * (ABNORMAL) Comprehensive metabolic panel (03/25/2025 2:20 PM EDT) Sodium 139 133 - 145 mmol/L LAB CHEMISTRY METHOD 03/25/2025 5:05 PM [facility] Potassium 4.2 3.5 - 5.5 mmol/L LAB CHEMISTRY METHOD 03/25/2025 5:05 PM [facility] Chloride 102 96 - 110 mmol/L LAB CHEMISTRY METHOD 03/25/2025 5:05 PM [facility] CO2 31 21 - 32 mmol/L LAB CHEMISTRY METHOD 03/25/2025 5:05 PM [facility] Anion Gap 6 3 - 11 LAB CHEMISTRY METHOD 03/25/2025 5:05 PM [facility] Glucose 94 70 - 100 mg/dL LAB CHEMISTRY METHOD 03/25/2025 5:05 PM [facility] BUN 23 5 - 25 mg/dL LAB CHEMISTRY METHOD 03/25/2025 5:05 PM [facility] Creatinine 1.62(H) 0.70 - 1.30 mg/dL LAB CHEMISTRY METHOD 03/25/2025 5:05 PM [facility] eGFR 43(L) >=60 mL/min/1. 73m2 LAB CHEMISTRY METHOD 03/25/2025 5:05 PM [facility] Comment:Calculation based on the Chronic Kidney Disease Epidemiology Collaboration (CKD-EPI) equation refit without adjustment for race. BUN/Creatinine Ratio 14.2 LAB CHEMISTRY METHOD 03/25/2025 5:05 PM [facility] Calcium 9.1 8.5 - 10.5 mg/dL LAB CHEMISTRY METHOD 03/25/2025 5:05 PM [facility] AST (SGOT) 26 10 - 42 unit/L LAB CHEMISTRY METHOD 03/25/2025 5:05 PM [facility] ALT (SGPT) 27 10 - 60 unit/L LAB CHEMISTRY METHOD 03/25/2025 5:05 PM [facility] Alkaline Phosphatase 65 42 - 121 unit/L LAB CHEMISTRY METHOD 03/25/2025 5:05 PM [facility] Total Protein 7.9 6.0 - 8.0 g/dL LAB CHEMISTRY METHOD 03/25/2025 5:05 PM [facility] Albumin 3.7 3.2 - 5.0 g/dL LAB CHEMISTRY METHOD 03/25/2025 5:05 PM [facility] Total Bilirubin 0.6 0.0 - 1.4 mg/dL LAB CHEMISTRY METHOD 03/25/2025 5:05 PM [facility] Blood Venous blood specimen / Unknown Venipuncture / Unknown 03/25/2025 2:20 PM EDT 03/25/2025 2:20 PM EDT Douglas [facility] LAB BLOOD ORDERABLES Lyly jerome Result [facility] [address] [place] [address], from Last 3 Months or Most Recently Relevant to Health Maintenance Insurance [employer] Care Teams Print Developer Automatic Relationship Specialty Start Date End Date Douglas Aguero PA [address] [place] [address] PCP - General Internal Medicine 12/28/20
== END 2025-06-28 15:34 | disposition home or self-care (01) ==
LOC: HO.HOS 14:40
PROVIDERS: PCP Physician Assistant Medical; Visit Provider Physician Assistant
DX: S43.004A Unspecified dislocation of right shoulder joint, initial encounter (principal)
CPT/HCPCS: 99203

== ENCOUNTER 2025-09-17 10:47 | Outpatient (AMB) | payer OTHER, SELFPAY ==
--- NOTE | 2025-09-17 10:50 | MHC.OFFVIS ---
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 Patient was [place] [facility] [place] due to a fall, at their visit he reported that he tripped over his friends cane. Patient has had a Cervical spine CT and Hip/Pelvis X Ray at their visit. At today's visit he states that the right knee pain is still sore/tender. Patient noted for today's visit he would like to discuss his imaging from his 06/14/25 visit. Patient states that he would like to talk about at home exercises and physical therapy. He noted that he has a exercises bike at home and would like to discuss if it is safe to use again. Patient is currently in physical therapy for the right shoulder, right side of the neck. Pain Score- 2 Allergies No Known Drug Allergies (NO KNOWN DRUG ALLERGIES) Allergy (Unknown, Verified 06/28/25 14:52) NONE Medication List - Last Reconciled 09/17/25 by Miranda Lima MD aspirin (Adult Low Dose Aspirin) 81 mg PO DAILY hydrochlorothiazide 12.5 mg PO DAILY lisinopril 40 mg PO DAILY metoprolol succinate ER 50 mg PO DAILY nifedipine ER 30 mg PO DAILY HPI Comments Details: Right shoulder dislocation 06/14/2025 after tripping and falling. He was seen in the emergency department where he was reduced successfully. Saw Christie HERMAN in the office for follow up. Undergoing PT currently. Minor neck pain and neck stiffness, minor per patient. Non radicular to arm. No numbness on hand. He has concerns regarding his hip and knee as well. Occasionally knee bothers him, but no pain or swelling, more like weakness. He bikes for exercise. Minor hip and right groin pain, 11/13. He did have left sided sciatica in 2019 but none since then. [facility] Medical History Ascending aortic aneurysm Labile blood pressure Postoperative atrial fibrillation Mitral regurgitation Mitral valve prolapse HTN (hypertension) Surgical History H/O mitral valve repair Family History Father No problems noted. Mother No problems noted. Social History (Updated 06/28/25 @ 14:50 by Sabiha Ellis [facility]) Patient Tobacco Use Status: Former Tobacco user Current occupational status: retired Current occupation: right hand dominant Review of Systems Const All systems reviewed & are unremarkable except as noted in HPI and below Physical Exam Exam Exam: Right shoulder still somewhat limited on forward flexion and abduction due to pain. Right cervical range of motion acceptable limits. Negative Spurling sign. Right hip range of motion acceptable limits. Right knee no signs of effusion, warmth or redness. Some tenderness over right medial joint line. Results Reviewed Results Reviewed: I independently reviewed the results of the following: Right cervical spine CT shows anterior endplate spurring. Decreased disc spaces. Right hip x-ray shows moderate loss of joint space. Right knee x-ray shows mild-moderate loss of joint space. Ordering Physician: Helen Mcnally Date of Service: 06/14/25 Procedure(s): XR hip RT w PEL1V Accession Number(s): [id number] cc: Helen Mcnally; Douglas Aguero~ EXAMINATION: XR HIP, RIGHT CLINICAL INFORMATION: pain, injury COMPARISON: None available. TECHNIQUE: AP and oblique views of the right hip. AP view pelvis. FINDINGS: No acute cortical disruption or gross malalignment. Degenerative changes in the coxofemoral joints. Spondylosis at L4-5 and L5-S1. Vascular calcifications. Vascular clips in the right inguinal region. Degenerative changes in the symphysis pubis. XR/XR hip RT w PEL1V IMPRESSION: No acute fracture or dislocation, right hip. Moderate osteoarthrosis/osteoarthritis, right hip. Atherosclerosis disease. Spondylosis, L5-S1. Electronically signed by: Delroy Cole MD 06/14/2025 02:55 PM EDT Ordering Physician: Helen Mcnally Date of Service: 06/14/25 Procedure(s): XR knee RT 3V Accession Number(s): [id number] cc: Helen Mcnally; Douglas Aguero~ EXAMINATION: XR KNEE, RIGHT CLINICAL INFORMATION: pain, injury COMPARISON: None available. TECHNIQUE: AP oblique and lateral views, of the right knee. FINDINGS: No acute cortical disruption or malalignment. Marginal osteophyte formation and sclerosis along the articular surface of the lateral femoral condyle and lateral tibial plateau. Asymmetric joint space narrowing involving mostly the lateral compartment. Suprapatellar bursa joint effusion, moderate volume. Vascular calcification. Osteopenia versus osteoporosis. XR/XR knee RT 3V IMPRESSION: Bicompartmental atherosclerosis without acute fracture or dislocation. Suprapatellar bursa joint effusion, moderate volume. Atherosclerosis disease, peripheral. Electronically signed by: Delroy Cole MD 06/14/2025 02:57 PM EDT RP [place] [address] XRay Report Signed Patient: Obinna Gonzalez MR#: [id number] : 1945 Acct:[id number] Age/Sex: 79 / M ADM Date: 06/14/25 Loc: .ED Attending Dr: Ordering Physician: eHlen Mcnally Date of Service: 06/14/25 Procedure(s): XR shoulder RT min 2V Accession Number(s): [id number] cc: Helen Mcnally; Douglas Aguero~ EXAMINATION: XR SHOULDER, RIGHT CLINICAL INFORMATION: post-reduction COMPARISON: June 14, 2025 at 221. TECHNIQUE: AP view of the right shoulder. FINDINGS: Normal alignment. Acute on chronic pulmonary disease should be considered.. XR/XR shoulder RT min 2V IMPRESSION: Satisfactory post reduction. Electronically signed by: Delroy Cole MD 06/14/2025 03:09 PM EDT RP Ordering Physician: Helen Mcnally Date of Service: 06/14/25 Procedure(s): CT cervical spine wo IV con Accession Number(s): [id number] cc: Helen Mcnally~ Report Number: [id number]: Total DLP = 1245.20 mGy-cm EXAMINATION: CT CERVICAL SPINE WITHOUT CONTRAST CLINICAL INFORMATION: Status post fall. COMPARISON: None available. TECHNIQUE: Contiguous axial images through the cervical spine using 3 mm collimation with bone and soft tissue algorithm. Sagittal and coronal reformatted images acquired. DLP: 401.[address] examination was performed using dose optimization techniques as appropriate, variously including the following: *Automated exposure control *Adjustment of mA and/or kV according to patient size (this includes techniques or standardized protocols for targeted exams where dose is matched to indication/reason for exam; i.e. extremities or head) *Use of iterative reconstruction technique FINDINGS: Patient motion artifact. Craniocervical junction is intact with normal alignment between the occipital condyles and lateral masses of C1. Degenerative changes in the periodontal C1 region. Multilevel syndesmophyte formation and marginal 5 formation and subchondral cyst formation decreased intervertebral disc height from C3-4 to C6-7. Grade 1 anterolisthesis C4-5 and C7-T1 likely degenerative. Multilevel facet joint hypertrophy mostly on the left side of C3-4 C4-5 and the right side of C6-7. C1 is intact. C2 is intact. C3 is intact. C4 is intact. C5 is intact. C6 is intact. C7 is intact. No gross prevertebral compartment hematoma. Mixed plaques in the right ICA. Thyroid gland is not enlarged. . CT/CT cervical spine wo IV con IMPRESSION: Multilevel cervical spondylosis resulting in central spinal canal stenosis at C5-6 and to a lesser extent C4-5 and C3-4 without acute fracture or trauma-related listhesis. Mixed plaques, right ICA. Fleischner guidelines were followed. Electronically signed by: Delroy Cole MD 06/14/2025 02:50 PM EDT RP I reviewed records from the following: Ortho Assessment & Plan Assessment & Plan (1) Closed dislocation of right shoulder: Code(s): S43.004A - Unspecified dislocation of right shoulder joint, initial encounter Category: Medical Qualifiers: Encounter type: initial encounter Qualified Code(s): S43.004A - Unspecified dislocation of right shoulder joint, initial encounter (2) Degenerative joint disease of right hip: Code(s): M16.11 - Unilateral primary osteoarthritis, right hip Category: Medical Qualifiers: Osteoarthritis type: primary Qualified Code(s): M16.11 - Unilateral primary osteoarthritis, right hip (3) Right knee DJD: Code(s): M17.11 - Unilateral primary osteoarthritis, right knee Category: Medical Qualifiers: Osteoarthritis type: primary Qualified Code(s): M17.11 - Unilateral primary osteoarthritis, right knee (4) Cervical spondylosis: Code(s): M47.812 - Spondylosis without myelopathy or radiculopathy, cervical region Category: Medical Plan We went over all images for cervical, hip and knee. Answered all his questions. Discussed what exercises are safe for him to do. We talked about red flags to watch out for. As for right knee, he is interested in trying gel injections next year. He will call around spring time once he has decided. Assessment and plan discussed with patient, and patient was agreeable. All questions were answered thoroughly. Total of 45 minutes spent today including chart review, results review, history taking, physical examination, discussion of assessment and plan, and coordination of care. Miranda Lima MD, FLY Board Certified, [place] [employer] and Rehabilitation (ABPMR) Board Certified, [place] [employer] Electrodiagnostic [employer] (ABEM) Coding Level of Care Code New Pt Level 4 (41502) Diagnoses Closed dislocation of right shoulder, initial encounter S43.004A Encounter type: initial encounter Primary osteoarthritis of right hip M16.11 Osteoarthritis type: primary Primary osteoarthritis of right knee M17.11 Osteoarthritis type: primary Cervical spondylosis M47.812
== END 2025-09-17 11:37 | disposition home or self-care (01) ==
LOC: HO.HOS 10:48
PROVIDERS: PCP Physician Assistant Medical; Visit Provider Physical Medicine & Rehabilitation
DX: S43.004A Unspecified dislocation of right shoulder joint, initial encounter (principal); M16.11 Unilateral primary osteoarthritis, right hip; M17.11 Unilateral primary osteoarthritis, right knee; M47.812 Spondylosis without myelopathy or radiculopathy, cervical region
CPT/HCPCS: 99204

== ENCOUNTER → 2025-09-20 10:50 | Outpatient (REF) | payer OTHER, SELFPAY ==
--- NOTE | 2025-09-20 10:53 | CA_ITS ---
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 The calculated ejection fraction is 67% by biplane method. - Evidence suggests grade II (moderate) diastolic dysfunction. - s/p mitral valve repair. Normal valvular function. - There is mild dilatation of the ascending aorta measuring 4.10 cm. Findings Left Ventricle Normal left ventricular cavity size. There is mildly increased left ventricular wall thickness. The left ventricular systolic function is normal. The calculated ejection fraction is 67% by biplane method. There is no evidence of regional wall motion abnormalities. Evidence suggests grade II (moderate) diastolic dysfunction. Right Ventricle Normal right ventricular cavity size. There is normal right ventricular systolic function. Atria Mild biatrial enlargement. Aortic Valve There is a normal trileaflet aortic valve. There is no aortic valve stenosis. There is trace (trivial) aortic valve regurgitation. Mitral Valve There is trace mitral valve regurgitation. There is no mitral valve stenosis. s/p mitral valve repair. Pulmonic Valve The pulmonic valve is likely normal. Tricuspid Valve There is mild tricuspid valve regurgitation. There is no evidence of pulmonary hypertension. Great Vessels There is mild dilatation of the ascending aorta measuring 4.10 cm. Venous The inferior vena cava is normal in size and collapses greater than 50% with inspiration. Pericardium/Pleural There is no evidence of pericardial effusion. Prior Study Comparison No significant change compared to prior study dated: 09/04/2024. Measurements 2D Linear Measurements IVSd: 1.21 0.6-0.9/0.6-1.0 cm LVIDd: 4.49 3.9-5.3/4.2-5.9 cm LVIDd Index: 1.97 2.4-3.2/2.2-3.1 cm/m2 LVIDs: 3.13 2.0-3.6 cm LVPWd: 1.23 0.7-1.1 cm LA Diam: 4.00 2.7-3.8/3.0-4.0 cm LAIDs Index: 1.75 1.5-2.3 cm/m2 LV Mass: 251.99 67-162/88-224 g LV Mass Index: 110.52 43-95/49-115 g/m2 LVOT Diam: 2.20 3.0+(-)1.3 cm 2D Systolic Function EF 4C: 64.10 >55% EF 2C: 68.70 >55% EF BiP: 66.60 >55% Mitral Valve MV VTI: 0.47 MV Pk Edward: 1.59 MV Mn Edward: 0.95 MV Pk Grad: 10.00 MV Mn Grad: 5.00 MV Pk E: 1.36 MV PK A: 1.19 MV Decel Time: 291.00 E/A: 1.10 E'Lateral: 6.53 E'Medial: 4.18 E/E' Med: 32.50 E/E' Lat: 20.80 PHT: 85.00 MVA PHT: 2.59 MVA Continuity: 1.96 Decel [place]: 4.67 Aortic Valve AoV Pk Edward: 1.43 AoV Mn Edward: 1.07 AoV VTI: 0.36 AoV Pk Grad: 8.00 Aov Mn Grad: 5.00 YASMANY Cont.VTI: 2.54 AI Pk Edward: 4.11 AI [place]: 2.20 LVOT LVOT Pk Edward: 1.03 LVOT Mn Edward: 0.73 LVOT VTI: 0.24 LVOT Pk Grad: 4.00 LVOT Mn Grad: 3.00 LVOT Diam: 2.20 LVOT Area: 3.80 Diastolic Function MV Pk E: 1.36 MV Pk A: 1.19 E/A: 1.10 E'Medial: 4.18 E/E' Med: 32.50 E' Laterial: 6.53 E/E' Lat: 20.80 Right Ventricle TAPSE (mm): 23.30 TVS' Edward: 12.60 Tricuspid Valve TR Pk Edward: 2.38 TR Pk Grad: 23.00 RA Press: 3.00 RVSP: 26.00 Great Vessels Aorta Sinus of Valsalva: 3.50 2.0-3.5 cm Ao Asc: 4.10 2.1-3.4 cm Ao Arch: 3.70 Pulmonary Valve PV Pk Edward: 1.03 Peak PV Grad: 4.00 Updated in Other Vendor System with Status of Final Tani Alcantara MD electronically signed on 09/21/2025 11:57:02 AM with status of Final
== END ==
LOC: HO.CARD 10:50
PROVIDERS: PCP Physician Assistant Medical; Visit Provider Internal Medicine Cardiovascular Disease
DX: Z98.890 Other specified postprocedural states (principal)
CPT/HCPCS: 93306

== ENCOUNTER → 2025-09-20 10:53 | Outpatient (BNV) | payer OTHER, SELFPAY | PROVIDERS: PCP Physician Assistant Medical; Visit Provider Internal Medicine | DX: I51.89 Other ill-defined heart diseases (principal); I77.810 Thoracic aortic ectasia; Z95.2 Presence of prosthetic heart valve | CPT/HCPCS: 93306 ==

== ENCOUNTER 2025-09-21 11:00 | Outpatient (RCR) | payer OTHER, SELFPAY ==
[2025-07-07 11:04] VITALS: BP 125/58; PULSE 72
--- NOTE | 2025-07-07 13:59 | MHC.PT.EP ---
[facility] [place] Office [place] [facility] [place] Office [address]za [address] [phone] F: [phone] F: [phone] F: [phone] F: [phone] Physical Therapy Plan of Care Date of Evaluation: 07/07/25 Date of Surgery: Diagnosis: closed dislocation of RIGHT shoulder (RS) Assessment: Obinna Gonzalez (:[birth year]) is a pleasant 79 y.o. male who is referred to PT by Percy Diaz PA-C of [facility] with Dx of closed dislocation of RIGHT shoulder. Patient impairments include R shoulder pain, limited R shoulder and elbow ROM, weakness in R shoulder, impaired skin integrity of R UE with significant swelling and ecchymosis. Patient current functional limitations are problems with balance, lifting arm, carrying anything with arm, bathing, reaching to shelves. Patient will benefit from skilled PT to address aforementioned impairments and functional limitations to meet established goals. Frequency and Duration: The patient will be seen 2x/week for 8 weeks Short Term Goals: 4 weeks Patient demonstrates consistency and independence with HEP to self manage symptoms. Patient presents with reduction of swelling and ecchymosis in R hand and forearm with consistent stretching and application of ice and elevation. Penitentiary Goals: 8 weeks Patient presents with increased R shoulder flexion AROM 130 degrees to be able to reach to shelf in kitchen cabinets. Patient presents with increased R shoulder ER AROM to 50 deg to be able to reach to back pocket and to tuck in shirts Treatment Plan: Modalities to reduce pain, spasms and effusion. Manual therapy to restore motion and function. Therapeutic exercise to improve strength and flexibility. Neuromuscular re-education for posture and balance. Therapeutic activities to return to functional activities of daily living. Electronically signed by: Edilson Yoo, PT, DPT Please sign and return to therapist. Thank you for your referral.
--- NOTE | 2025-10-05 11:23 | MHC.PT.DC ---
[facility] [place] [facility] [place] Office [place] [facility] [address] Jacob Garza [address] [phone] F: [phone] F: [phone] F: [phone] F: [phone] Physical Therapy Discharge Report Diagnosis: closed dislocation of RIGHT shoulder (RS) Date of Surgery: Date of Evaluation: 07/07/25 Date of Discharge: 10/05/25 Treatments to Date: 17 Cancellations to Date: No Shows to Date: Discharge Status: Improved Function Independent with HEP Discharge Summary: Obinna attended 17 PT visits and made improvements with PT. He is independent with all HEP as well. He is therefore being d/c from PT. Electronically signed by: Yisel Shay PT DPT Please sign and return to therapist. Thank you for your referral.
== END 2025-10-05 11:23 | disposition home or self-care (01) ==
LOC: HO.PT 11:00
PROVIDERS: PCP Physician Assistant Medical; Visit Provider Physician Assistant
DX: S43.004D Unspecified dislocation of right shoulder joint, subsequent encounter (principal)
CPT/HCPCS: 97110; 97140; 97162; 97530; 97535

== ENCOUNTER 2025-10-05 09:26 | Outpatient (AMB) | payer OTHER, SELFPAY ==
[2025-10-05 09:46] VITALS: BP 138/62; PULSE 50; BMI 28.1
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
--- OUTSIDE RECORDS SUMMARY | 2025-10-05 10:10 | XMS_ITS | Clinical Summary ---
Author Organization [address] Address [address] [place] [phone] Phone Care Team Providers Care De Ionizer Operator Name Role Phone Douglas Aguero Primary Care Provider [phone] [phone] Allergies Active Allergy Reactions Criticality Noted Date Comments Hay Fever And Allergy Relief 025 Medications aspirin 81 mg EC tablet Take 1 [...] lower urinary tract symptoms, symptom details unspecified,Anxi ety,[place] (hard of hearing),Chronic cough Take 1 capsule (1,000 Units total) by mouth 1 (one) time each day. 90 capsule 3 04/02/20 25 Active hydroCHLOROthiaz kris (MICROZIDE) 12.5 mg capsule TAKE 1 CAPSULE BY MOUTH EVERY DAY IN THE MORNING 90 capsule 3 06/14/20 25 Active NIFEdipine (ADALAT CC) 30 mg 24 hr tablet TAKE 1 TABLET BY MOUTH EVERY DAY 90 tablet 1 09/08/20 25 Active NIFEdipine (ADALAT CC) 30 mg 24 hr tablet Take 1 tablet (30 mg total) by mouth 1 (one) time each day. 09/11/20 23 025 Discontinued Active Problems Problem Noted Date Diagnosed Date CKD (chronic kidney disease) stage 3, GFR 30-59 ml/min ([facility] V24, [facility] V28) 02/16/2022 Assessment & Plan [...] of both feet 02/25/2017 Paroxysmal atrial fibrillation ([facility] V24, [facility] V28) 12/28/2014 Assessment & Plan [...] Encounters Date Type Department Care Team Description 09/27/2025 8:50 AM EST Lab Draw Station - [address] Secondary hypertension (Primary Dx); Stage 3 chronic kidney disease, unspecified whether stage 3a or 3b CKD (CMS/HCC V24, CMS/HCC V28); Benign prostatic hyperplasia with lower urinary tract symptoms, symptom details unspecified; Erectile dysfunction; Anxiety 09/27/2025 Results Follow-Up Adult Medicine [address] [phone] Douglas Aguero PA from Last 3 Months Immunizations Immunization Administration Dates Next Due Hepatitis B (Recombivax HB-D ialysis) 18yo and older 06/05/2023 Influenza Quadravalent, MDCK , 0.5ml, preservative free (Flucelvax) 6mo and older 09/01/2018 Influenza trivalent, 0.5mL ( Fluzone High-dose) 65yo and older 08/13/2025,08/14/2024,09/11/2023,08/27,08/24/2021,09/04/2019,08/29/2017 ,07/27/2016 Influenza trivalent, with pr eservative (Fluzone; Afluria) [...] Left PROCEDURE: HISTORICAL HERNIA REPAIR/ING; COMMENT: dr [id number] OTHER SURGICAL HISTORY 12/16 PROCEDURE: HISTORICAL MITRAL [...] Years Used Date Smoking Tobacco: Former Cigarettes 0.5 Q uit: 11/04/1993 Smokeless Tobacco: Never Tobacco [...] for your loved ones. For example, child center assistant or elderly care for an older adult? [...] Date Recorded What is your living situation? Unrecognized valu e 09/24/2024 Sex and Gender Information Value Date Recorded [...] EST Office Visit Adult Medicine East - [address] [phone] Douglas Aguero PA [address] [place] [address] 12/30/2025 1:15 PM EST Office Visit Nephrology - [address] [phone] Rahul Tejeda MD [address] [place] [address] [place] [phone] Health Maintenance Due Date Last Done Comments RSV Immunization Adult Patients (1 - 1-dose 75+ series) 2019 Hepatitis B Vaccines (2 of 3 - 19+ 3-dose series) 07/03/2023 06/05/2023 Social Influencers of Health Screening 09/24/2025 09/24/2024 Falls Risk Assessment 09/25/2025 09/25/2024 COVID-19 Vaccine (7 - Pfizer risk season) 2026 08/13/2025, 08/14/2024, 09/19/2023, Additional history exists Hypertension/CHF/CAD Annual BMP Blood Test 09/27/2026 09/27/2025, 03/25/2025, 12/18/2024, Additional history exists DTaP,Tdap,and Td Vaccines (3 - Td or Tdap) 09/08/2029 09/08/2019, 06/04/2008 Cholesterol Screening (Lipid Panel) 09/27/2030 09/27/2025, 03/25/2025, 09/21/2024, Additional history exists Pneumococcal Vaccine: 50+ Years Completed 12/28/2014, 03/02/2011 Zoster Vaccines Completed 06/05/2023, 02/2023, 12/25/2012 Depression Screening Completed 03/30/2025 Influenza Vaccine Completed 08/13/2025, , 07/09/2024, Additional history exists Colorectal Cancer Screening: Stool Based Tests (FOBT/FIT) [...] Diagnosis Comments CBC WITH AUTO DIFFERENTIAL Routine 09/27/2025 8:59 AM EST Secondary hypertension Stage 3 chronic kidney disease, unspecified whether stage 3a or 3b CKD (CMS/HCC V24, CMS/HCC V28) Benign prostatic hyperplasia with lower urinary tract symptoms, symptom details unspecified Erectile dysfunction Anxiety PROSTATE SPECIFIC ANTIGEN DIAGNOSTIC Routine 09/27/2025 8:59 AM EST Secondary hypertension Stage 3 chronic kidney disease, unspecified whether stage 3a or 3b CKD (CMS/HCC V24, CMS/HCC V28) Benign prostatic hyperplasia with lower urinary tract symptoms, symptom details unspecified Erectile dysfunction Anxiety LIPID PANEL WITH REFLEX TO DIRECT LDL Routine 09/27/2025 8:59 AM EST Secondary hypertension Stage 3 chronic kidney disease, unspecified whether stage 3a or 3b CKD (CMS/HCC V24, CMS/HCC V28) Benign prostatic hyperplasia with lower urinary tract symptoms, symptom details unspecified Erectile dysfunction Anxiety COMPREHENSIVE METABOLIC PANEL Routine 09/27/2025 8:59 AM EST Secondary hypertension Stage 3 chronic kidney disease, unspecified whether stage 3a or 3b CKD (CMS/HCC V24, CMS/HCC V28) Benign prostatic hyperplasia with lower urinary tract symptoms, symptom details unspecified Erectile dysfunction Anxiety VITAMIN D 25 HYDROXY Routine 09/27/2025 8:59 AM EST Secondary hypertension Stage 3 chronic kidney disease, unspecified whether stage 3a or 3b CKD (CMS/HCC V24, CMS/HCC V28) Benign prostatic hyperplasia with lower urinary tract symptoms, symptom details unspecified Erectile dysfunction Anxiety CBC AND DIFFERENTIAL Routine 09/27/2025 8:59 AM EST Secondary hypertension Stage 3 chronic kidney disease, unspecified whether stage 3a or 3b CKD (CMS/HCC V24, CMS/HCC V28) Benign prostatic hyperplasia with lower urinary tract symptoms, symptom details unspecified Erectile dysfunction Anxiety from Last 3 Months Results * (ABNORMAL) Lipid panel with reflex to direct LDL (09/27/2025 8:59 AM EST) Cholesterol 188 0 - 200 mg/dL 09/27/2025 1:57 PM [facility] Triglycerides 74 0 - 150 mg/dL 09/27/2025 1:57 PM [facility] HDL 69 >=40 mg/dL 09/27/2025 1:57 PM [facility] LDL Calculated 104(H) 0 - 100 mg/dL 09/27/2025 1:57 PM [facility] Comment:Estimated LDL Calcul ated using equation: Total cholesterol - HDL cholesterol - (Triglycerides/5) VLDL Cholesterol Chan 14.8 mg/dL 09/27/2025 1:57 PM [facility] Non HDL Chol. (LDL+VLDL) 119 <145 mg/dL 09/27/2025 1:57 PM [facility] Chol/HDL Ratio 2.7 0.0 - 4.4 09/27/2025 1:57 PM [facility] Blood Venous blood specimen / Unknown Venipuncture / Unknown 09/27/2025 8:59 AM EST 09/27/2025 8:59 AM EST us Douglas HERMAN LAB BLOOD ORDERABLES Lyly l Result [facility] [address] [place] [address], * Prostate specific antigen diagnostic (09/27/2025 8:59 AM EST) PSA 1.31 0.00 - 4.00 ng/mL 09/27/2025 1:47 PM [facility] Blood Venous blood specimen / Unknown Venipuncture / Unknown 09/27/2025 8:59 AM EST 09/27/2025 8:59 AM EST us Douglas HERMAN LAB BLOOD ORDERABLES Lyly jerome Result [facility] [address] [place] [address], * (ABNORMAL) CBC auto differential (09/27/2025 8:59 AM EST) WBC 6.9 4.8 - 10.8 K/mcL LAB HEMETOLOGY METHOD 09/27/2025 10:[address] [facility] RBC 5.40 4.50 - 5.50 M/mcL LAB HEMETOLOGY METHOD 09/27/2025 10:33 AM [facility] Hemoglobin 16.8 13.5 - 17.5 g/dL LAB HEMETOLOGY METHOD 09/27/2025 10:33 AM [facility] Hematocrit 49.6 42.0 - 54.0 % LAB HEMETOLOGY METHOD 09/27/2025 10:33 AM [facility] MCV 91.5 79.0 - 98.0 FL LAB HEMETOLOGY METHOD 09/27/2025 10:33 AM [facility] MCH 31.0 27.0 - 32.0 pcg LAB HEMETOLOGY METHOD 09/27/2025 10:33 AM [facility] MCHC 33.9 32.0 - 37.0 g/dL LAB HEMETOLOGY METHOD 09/27/2025 10:33 AM [facility] RDW 13.2 11.0 - 15.0 % LAB HEMETOLOGY METHOD 09/27/2025 10:33 AM [facility] Platelets 194 130 - 400 K/mcL LAB HEMETOLOGY METHOD 09/27/2025 10:33 AM [facility] MPV 11.4(H) 7.0 - 11.0 FL LAB HEMETOLOGY METHOD 09/27/2025 10:33 AM [facility] NRBC 0.0 <1.0 % LAB HEMETOLOGY METHOD 09/27/2025 10:33 AM [facility] NRBC Absolute 0.00 <0.10 K/mcL LAB HEMETOLOGY METHOD 09/27/2025 10:33 AM [facility] Neutrophils Relative 61.8 % LAB HEMETOLOGY METHOD 09/27/2025 10:33 AM [facility] Lymphocytes Relative 21.1 % LAB HEMETOLOGY METHOD 09/27/2025 10:33 AM [facility] Monocytes Relative 12.2 % LAB HEMETOLOGY METHOD 09/27/2025 10:33 AM [facility] Eosinophils Relative 3.6 % LAB HEMETOLOGY METHOD 09/27/2025 10:33 AM [facility] Basophils Relative 1.0 % LAB HEMETOLOGY METHOD 09/27/2025 10:33 AM [facility] Immature Granulocytes Relative 0.3 % LAB HEMETOLOGY METHOD 09/27/2025 10:33 AM [facility] Neutrophils Absolute 4.25 1.50 - 7.00 K/mcL LAB HEMETOLOGY METHOD 09/27/2025 10:33 AM [facility] Lymphocytes Absolute 1.45 1.00 - 5.00 K/mcL LAB HEMETOLOGY METHOD 09/27/2025 10:33 AM [facility] Monocytes Absolute 0.84 0.20 - 1.00 K/mcL LAB HEMETOLOGY METHOD 09/27/2025 10:33 AM [facility] Eosinophils Absolute 0.25 0.00 - 0.50 K/mcL LAB HEMETOLOGY METHOD 09/27/2025 10:33 AM [facility] Basophils Absolute 0.07 0.00 - 0.20 K/mcL LAB HEMETOLOGY METHOD 09/27/2025 10:[address] [facility] Immature Granulocytes Absolute 0.02 0.00 - 0.03 K/mcL LAB HEMETOLOGY METHOD 09/27/2025 10:33 AM [facility] Blood Venous blood specimen / Unknown Venipuncture / Unknown 09/27/2025 8:59 AM EST 09/27/2025 8:59 AM EST [facility]OD ORDERAB[facility] Lyly l Result Performing Organization Address City/[facility]/ZIP Co de Phone Number [facility] [address] [place] [address], [place] [phone] * Vitamin D 25 hydroxy (09/27/2025 8:59 AM EST) Vit D, 25-Hydroxy 43.3 30.0 - 80.0 ng/mL 09/27/2025 1:51 PM [facility] Blood Venous blood specimen / Unknown Venipuncture / Unknown 09/27/2025 8:59 AM EST 09/27/2025 8:59 AM EST [facility] Rolando Aguero AL LAB BLOOD ORDERABLES Lyly l Result Performing Organization Address City/[facility]/ZIP Co de Phone Number [facility] [address] [place] [address], [place] [phone] * (ABNORMAL) Comprehensive metabolic panel (09/27/2025 8:59 AM EST) Sodium 135 133 - 145 mmol/L 09/27/2025 2:02 PM [facility] Potassium 4.6 3.5 - 5.5 mmol/L 09/27/2025 2:02 PM [facility] Chloride 95(L) 96 - 110 mmol/L 09/27/2025 2:02 PM [facility] CO2 31 21 - 32 mmol/L 09/27/2025 2:02 PM [facility] Anion Gap 9 3 - 11 09/27/2025 2:02 PM [facility] Glucose 94 70 - 100 mg/dL 09/27/2025 2:02 PM [facility] BUN 18 5 - 25 mg/dL 09/27/2025 2:02 PM [facility] Creatinine 1.43(H) 0.70 - 1.30 mg/dL 09/27/2025 2:02 PM [facility] eGFR 50(L) >=60 mL/min/1. 73m2 09/27/2025 2:02 PM [facility] Comment:Calculation based on the Chronic Kidney Disease Epidemiology Collaboration (CKD-EPI) equation refit without adjustment for race. BUN/Creatinine Ratio 12.6 09/27/2025 2:02 PM [facility] Calcium 9.1 8.5 - 10.5 mg/dL 09/27/2025 2:02 PM [facility] AST (SGOT) 33 10 - 42 unit/L 09/27/2025 2:02 PM [facility] ALT (SGPT) 22 10 - 60 unit/L 09/27/2025 2:02 PM [facility] Alkaline Phosphatase 66 42 - 121 unit/L 09/27/2025 2:02 PM [facility] Total Protein 7.9 6.0 - 8.0 g/dL 09/27/2025 2:02 PM [facility] Albumin 3.9 3.2 - 5.0 g/dL 09/27/2025 2:02 PM [facility] Total Bilirubin 1.1 0.0 - 1.4 mg/dL 09/27/2025 2:02 PM [facility] Blood Venous blood specimen / Unknown Venipuncture / Unknown 09/27/2025 8:59 AM EST 09/27/2025 8:59 AM EST Douglas HERMAN LAB BLOOD ORDERABLES Lyly jerome Result [facility] [address] [place] [address], [place] [phone] from Last 3 Months Insurance [facility] Care Teams De Ionizer Operator Relationship Specialty Start Date End Date Douglas Aguero PA [address] [place] [address] PCP - General Internal Medicine 12/28/20
--- OUTSIDE RECORDS SUMMARY | 2025-10-05 10:10 | XMS_ITS | Encounter Summary ---
Author Organization [facility] Address [address] [place] [address] Care Team Providers Care Home Energy Rater Name Role Phone Douglas Aguero Primary Care Provider [phone] Encounter Details Date Type Department Care Team ([facility] st Contact Info) Description 09/27/2025 Results Follow-Up Adult [address] [phone] Douglas Aguero PA [address] [place] [address] Social History Tobacco Use Types Packs/Day Years Used Date Smoking Tobacco: Former Cigarettes 0.5 Q uit: 11/04/1993 Smokeless Tobacco: Never Alcohol Use Standard Drinks/Week Comments Yes 0 [...] for your loved ones. For example, child protection specialist or elderly care for an older [...] not to disclose 2023 2:25 AM EST documented as of this encounter Plan of Treatment Upcoming Encounters Date Type Department Care Team ([facility] st Contact Info) Description 10/13/2025 12:45 PM EST Office Visit Adult Medicine [address] [phone] Douglas Aguero, BATSHEVA [address] [place] [phone] 12/30/2025 1:15 PM EST Office Visit Nephrology - [facility] [address] [place] [address] Rahul Tejeda MD [address] [phone] documented as of this encounter Visit Diagnoses Not on filedocumented in this encounter Additional Health Concerns Assessment Noted Time PHQ-9 Depression Total Score: 0 03/30/20 25 11:40 PM EDT A fall risk assessment has been complete d for the patient 09/25/2024 1:09 PM EST documented as of this encounter Care Teams Home Energy Rater Relationship Specialty Start Date End Date Douglas Aguero PA [address] [place] [address] PCP - General Internal Medicine 12/28/20 documented as of this encounter
== END 2025-10-05 10:29 | disposition home or self-care (01) ==
LOC: HO.HCS 09:27
PROVIDERS: PCP Physician Assistant Medical; Visit Provider Nurse Practitioner Family
DX: I44.1 Atrioventricular block, second degree (principal); Z98.890 Other specified postprocedural states; I71.20 Thoracic aortic aneurysm, without rupture, unspecified; I10 Essential (primary) hypertension
CPT/HCPCS: 93010; 99214

== ENCOUNTER → 2025-10-05 09:26 | Outpatient (BNVA) | payer OTHER, SELFPAY | PROVIDERS: PCP Physician Assistant Medical; Visit Provider Nurse Practitioner Family | DX: I44.1 Atrioventricular block, second degree (principal); I71.20 Thoracic aortic aneurysm, without rupture, unspecified; I10 Essential (primary) hypertension; Z79.899 Other long term (current) drug therapy; Z87.891 Personal history of nicotine dependence; Z98.890 Other specified postprocedural states | CPT/HCPCS: 93005 ==

== ENCOUNTER 2025-10-15 12:37 | Outpatient (AMB) | payer OTHER, SELFPAY ==
--- NOTE | 2025-10-15 13:01 | AM.OFFVISNUR ---
Intake Visit Reasons: EKG Allergies No Known Drug Allergies (NO KNOWN DRUG ALLERGIES) Allergy (Unknown, Verified 10/05/25 09:49) NONE Nursing Note pt is here for nurse visit with ekg ekg reviewed by dr call Office Procedures EKG 24170-[id number], Complete Coding CPT Codes EKG - CPT: 92323-[id number], Complete ([id number])
== END 2025-10-15 13:18 | disposition home or self-care (01) ==
LOC: HO.HCS 12:38
PROVIDERS: PCP Physician Assistant Medical; Visit Provider Nurse Practitioner Family
DX: I44.1 Atrioventricular block, second degree (principal); I42.2 Other hypertrophic cardiomyopathy
CPT/HCPCS: 93010

== ENCOUNTER → 2025-10-15 12:37 | Outpatient (BNVA) | payer OTHER, SELFPAY | PROVIDERS: PCP Physician Assistant Medical; Visit Provider Nurse Practitioner Family | DX: I44.1 Atrioventricular block, second degree (principal) | CPT/HCPCS: 93005 ==

== ENCOUNTER → 2025-10-21 12:28 | Outpatient (REF) | payer OTHER, SELFPAY ==
--- OUTSIDE RECORDS SUMMARY | 2024-05-18 07:45 | XMS_ITS ---
Author Organization [facility] Address [address] [place] [address] Care Team Providers Care Acid Tank Cleaner Name Role Phone Douglas Rashid Primary Care Provider Unav ailable Hakeem Ordonez Unavailable [phone] Bubba Orozco Unavailable [phone] Florian Encounters Encounter Location Date Provider Diagnosis [facility] [address] [place] [address] 05/18/2024 Bubba Orozco Plan Of Treatment Next Appt Details Provider Name:Hakeem Ordonez , 11/11/2025 02:45:00 PM, [address] [facility], [address], [address], Progress Notes * Obinna STOCKTON NDOB:[birth year] (80 yo M)Acc No.[id number]:05/18/2024 Progress Note Patient: Obinna SAAVEDRA N Provider: Karmen Avendaño DPM :1945 A ge:78 Y S ex:Male Date:05/18/2024 Address:[address] [place] [id number] Pcp:BATSHEVA Melchor Subjective: * Chief Complaints: * [address] Florian. * Medical History: Objective: * Vitals: Assessment: Plan: * Treatment: * Images: * The named appointment provid er may or may not be the originator of this progress note, and it is not deemed complete until electronically signed by the appointment provider. Sign off status: Pending * Provider: Karmen Avendaño DPM Date: 0 05/18/2024 Generated for Jennyfer Abdul/Marito on: 1 12/22/2024 04:17 PM EST
--- OUTSIDE RECORDS SUMMARY | 2024-10-22 08:00 | XMS_ITS ---
Author Organization [facility] Address [address] [place] [address] Care Team Providers Care Distribution Center Manager Name Role Phone Douglas Rashid Primary Care Provider Unav ailable Hakeem Ordonez Unavailable [phone] Cecy Pike [phone] Encounters Encounter Location Date Provider Diagnosis [facility] [address] [place] [address] 10/22/2024 Cecy Pike Plan Of Treatment Next Appt Details Provider Name:Hakeem Ordonez , 11/11/2025 02:45:00 PM, [address] [facility], [address] [place] [address], [address], Progress Notes * Obinna STOCKTON NDOB:[birth year] (80 yo M)Acc No.[id number]:10/22/2024 Progress Note Patient: Josiah SAAVEDRAboaz Calix Provider: Maykel Pike DPM :1945 A ge:79 Y S ex:Male Date:10/22/2024 Address:[address] [place] [phone] Pcp:BATSHEVA Melchor Subjective: * Chief Complaints: * * Medical History: Objective: * Vitals: Assessment: Plan: * Treatment: * Images: * The named appointment provid er may or may not be the originator of this progress note, and it is not deemed complete until electronically signed by the appointment provider. Sign off status: Pending * Provider: Maykel Pike DPM Date: 12/23/2023 Generated for Jennyfer Hummel on: 12/22/2024 04:16 PM EST
--- OUTSIDE RECORDS SUMMARY | 2025-01-22 07:30 | XMS_ITS ---
Author Organization [facility] Address [address] [place] [address] Care Team Providers Care District Commercial Superintendent Name Role Phone Douglas Rashid Primary Care Provider Unav ailable Hakeem Ordonez Unavailable [phone] Encounters Encounter Location Date Provider Diagnosis [facility] [address] [place] [address] 01/22/2025 Hakeem Ordonez Plan Of Treatment Next Appt Details Provider Name:Hakeem Ordonez , 11/11/2025 02:45:00 PM, [address] [facility], [address], [address], Progress Notes * Obinna STOCKTON NDOB:[birth year] (80 yo M)Acc No.[id number]:01/22/2025 Progress Note Patient: Eduard MARTINEZMICKI Obinna Calix Provider: Judy Ordonez DPM :1945 A ge:79 Y S ex:Male Date:01/22/2025 Address:[address] [place] [address] [address] [phone] Pcp:BATSHEVA Melchor Subjective: * Chief Complaints: * * Medical History: Objective: * Vitals: Assessment: Plan: * Treatment: * Images: * The named appointment provid er may or may not be the originator of this progress note, and it is not deemed complete until electronically signed by the appointment provider. Sign off status: Pending * Provider: Judy Ordonez DPM Date: 0 01/22/2025 Generated for Jennyfer Hummel on: 1 12/22/2024 04:17 PM EST
--- OUTSIDE RECORDS SUMMARY | 2025-07-16 08:00 | XMS_ITS ---
Author Organization [facility] Address [address] [place] [address] Care Team Providers Care Hosiery Looper Name Role Phone Douglas Rashid Primary Care Provider Unav ailable Hakeem Ordonez Unavailable [phone] Florian Encounters Encounter Location Date Provider Diagnosis [address] [address] 07/16/2025 Hakeem Ordonez Plan Of Treatment Next Appt Details Provider Name:Hakeem Ordonez , 11/11/2025 02:45:00 PM, [address] [facility], [address], [address], Progress Notes * STOCKTONObinna TAO NDOB:[birth year] (80 yo M)Acc No.[id number]:07/16/2025 Progress Note Patient: Obinna SAAVEDRA Provider: Judy Ordonez DPM :1945 A ge:79 Y S ex:Male Date:07/16/2025 Address:[address] [place] [id number] Pcp:BATSHEVA Melchor Subjective: * Chief Complaints: * [...] * Provider: Judy Ordonez DPM Date: 0 07/16/2025 Generated for Jennyfer Hummel on: 12/22/2024 04:17 PM EST
--- OUTSIDE RECORDS SUMMARY | 2025-10-21 16:17 | XMS_ITS | Encounter Summary ---
Author Organization [facility] Address [address] [place] [address] Care Team Providers Care Upper Inspector Name Role Phone Douglas Aguero Primary Care Provider [phone] Encounter Details Date Type Department Care Team ([facility] st Contact Info) Description 09/27/2025 Results Follow-Up Adult [address] [phone] Douglas Aguero PA [address] [place] [phone] Social History Tobacco Use Types Packs/Day Years [...] for your loved ones. For example, child protective services specialist or elderly care for an [...] Upcoming Encounters Date Type Department Care Team ([facility] Contact Info) Description 12/30/2025 1:15 PM EST Office Visit Nephrology - [address] [phone] Rahul Tejeda MD [address] [address] 04/13/2026 12:30 PM EDT Office Visit Adult Medicine [facility] [address] [place] [address] Douglas Aguero PA [address] [place] [phone] documented as of this encounter Visit Diagnoses Not on filedocumented in this encounter Additional Health Concerns Assessment Noted Time PHQ-9 Depression Total Score: 0 03/30/20 25 11:40 PM EDT A fall risk assessment has been complete d for the patient 09/25/2024 1:09 PM EST documented as of this encounter Care Teams Upper Inspector Relationship Specialty Start Date End Date Douglas Aguero PA [address] [place] [address] PCP - General Internal Medicine 12/28/20 documented as of this encounter
--- OUTSIDE RECORDS SUMMARY | 2025-10-21 16:17 | XMS_ITS | Clinical Summary ---
Author Organization [address] Address [address] [place] [phone] Phone Care Team Providers Care Keeler Polygraph Operator Name Role Phone Douglas Aguero Primary Care Provider [phone] Allergies Active Allergy Reactions Criticality Noted Date [...] s:Secondary hypertension,Paro xysmal atrial fibrillation (CMS/HCC V24, CMS/[facility] V28),Stage 3 chronic kidney disease, unspecified whether stage 3a or 3b CKD (CMS/HCC V24, CMS/[facility] V28),Benign prostatic hyperplasia with lower urinary tract symptoms, symptom details unspecified,Anxie ty,[place] (hard of hearing),Chronic cough Take 1 capsule (1,000 Units total) by mouth 1 (one) time each day. 90 capsule 3 5 Active hydroCHLOROthiazi de (MICROZIDE) 12.5 mg capsule TAKE 1 CAPSULE BY MOUTH EVERY DAY IN THE MORNING 90 capsule 3 5 Active NIFEdipine (ADALAT CC) 30 mg 24 hr tablet TAKE 1 TABLET BY MOUTH EVERY DAY 90 tablet 1 5 Active metoprolol succinate (TOPROL-XL) 50 mg 24 hr tablet TAKE 1 TABLET BY MOUTH EVERY DAY 90 tablet 3 5 10/13/20 25 Discontinu ed(Therapy completed) Active Problems Problem Noted Date Diagnosed Date Second degree AV block 10/13/2025 CKD (chronic kidney disease) stage 3, GFR 30-59 ml/min 02/16/2022 Assessment & Plan (09/25/2024 2:54 PM [...] of both feet 02/25/2017 Paroxysmal atrial fibrillation 12/28/2014 Assessment & Plan (09/25/2024 2:54 PM [...] Encounters Date Type Department Care Team Description 10/18/2025 Telephone Adult [address] [phone] Douglas Aguero PA 10/13/2025 12:45 PM EST Office Visit [address] [phone] Douglas Aguero PA Bradycardia (Primary Dx); Secondary hypertension; Paroxysmal atrial fibrillation (CMS/HCC V24, CMS/HCC V28); Stage 3 chronic kidney disease, unspecified whether stage 3a or 3b CKD (CMS/HCC V24, CMS/HCC V28); Benign prostatic hyperplasia with lower urinary tract symptoms, symptom details unspecified; Anxiety; Second degree AV block 09/27/2025 8:50 AM EST Lab Draw [address] Secondary hypertension (Primary Dx); Stage 3 chronic kidney disease, unspecified whether stage 3a or 3b CKD (CMS/HCC V24, CMS/HCC V28); Benign prostatic hyperplasia with lower urinary tract symptoms, symptom details unspecified; Erectile dysfunction; Anxiety 09/27/2025 Results Follow-Up Adult [address] [phone] Douglas Aguero PA from Last 3 Months [...] Left PROCEDURE: HISTORICAL HERNIA REPAIR/ING; COMMENT: dr [id number] OTHER SURGICAL HISTORY 12/16 PROCEDURE: HISTORICAL MITRAL [...] lation (HCC) Family history of melanoma 03/06/2016 DX:Fa jose history of melanoma; COMMENT: Family history of melanoma One of three brothers Acute left-sided low back pa in with left-sided sciatica 04/13/2018 DX:Acute left-sided low back pain with left-sided sciatica CKD (chronic kidney disease) stage 3, GFR 30-59 ml/min ([facility]/HCC V24, CMS/HCC V28) 02/16/2022 DX:CKD (chronic kidney disea se) stage 3, GFR 30-59 ml/min ([facility]) Family History Medical History Relation Name Comments Melanoma Brother 1 Other: atrial fibrillation Brother 2 Other: varicose veins Brother 2 Prostate cancer Brother 3 Other: lung cancer Sister smoker Relation Name Status Comments Brother 1 Alive htn, afib Brother 2 Alive BPH ?prostate c ancer Brother 3 Alive Father (Age 96) Mother (Age 84) skin cance r Sister lung cancer - s moker Social History Tobacco Use Types Packs/Day Years Used Date Smoking Tobacco: Former Cigarettes 0.5 Q uit: 11/04/1993 Smokeless Tobacco: Never Tobacco Cessation:Counseling Given: Not Answered Alcohol Use Standard Drinks/Week Comments Yes 0 (1 standard drink = 0.6 oz pur e alcohol) Housing Instability Answer Date Recorde d Are you worried that in the next 2 months you may not have stable housing? No 10/13/2025 Food Access & Nutrition Answer Date Rec orded Do you have access to a vari ety of food including fruits and vegetables? Yes 10/13/2025 Access to Healthcare Answer Date Record ed Within the last 3 months, ho w many times did you visit the emergency department for your medical care? 1 10/13/2025 Health Literacy Answer Date Recorded How often do you need to hav e someone help you when you read instructions, pamphlets, or other written material from your doctor or pharmacy? Rarely 10/13/2025 Caregiver: How often do you need to have someone help you when you read instructions, pamphlets, or other written material from your doctor or pharmacy? Not on file 10/13/2025 Financial Risk Answer Date Recorded How hard is it for you to pa y for the very basics like food, housing, medical care, and air conditioning / heating? Not very hard 10/13/2025 Transportation Answer Date Recorded Has the lack of transportati on kept you from meetings, work, or from getting things needed for daily living? No Has the lack of transportati on kept you from medical appointments or from getting medications? No 10/13/2025 Social Isolation Answer Date Recorded How often do you feel lonely or isolated from those around you? Sometimes 10/13/2025 Food Risk Answer Date Recorded Within the past 12 months we worried whether our food would run out before we got money to buy more. Never true 10/13/2025 Within the past 12 months th e food we bought just didn't last and we didn't have money to get more. Never true 10/13/2025 Dependent Care Answer Date Recorded Do you need help finding or paying for care for your loved ones. For example, child welfare consultant or elderly care for an older adult? No 10/13/2025 Education Answer Date Recorded Do you think completing more education or training, like finishing a GED, going to college, or learning a trade, would be helpful for you? No 10/13/2025 Employment and Income Answer Date Recor ded During the last four weeks, have you been actively looking for work? No 10/13/2025 Living Situation Answer Date Recorded What is your living situation? Unrecognized valu e 10/13/2025 Sex and Gender Information Value Date Recorded Sex Assigned at Male 09/24/2024 2:25 AM EST Legal Sex Male 5:02 PM EST Gender Identity Male 09/24/2024 2:25 AM EST Sexual Orientation Choose not to disclose 2023 2:25 AM EST Last Filed Vital Signs Vital Sign Reading Time Taken Comments Blood Pressure 136/66 10/13/2025 12:43 PM EST Pulse 43 10/13/2025 12:43 PM EST Temperature 36.6 C (97.8 F) 10/13/2025 12:43 PM EST Respiratory Rate 14 10/13/2025 12:43 PM EST Oxygen Saturation 98% 10/13/2025 12:43 PM EST Inhaled Oxygen Concentration - - Weight 101 kg (222 lb 6.4 oz) 10/13/2025 12:43 P M EST Height 188 cm (6' 2 ) 10/13/2025 12:43 PM EST Body Mass Index 28.55 10/13/2025 12:43 PM EST Plan of Treatment Upcoming Encounters Date Type Department Care Team (Late st Contact Info) Description 12/30/2025 1:15 PM EST Office Visit Nephrology - [address] [place] [phone] Rahul Tejeda MD [address] [phone] 04/13/2026 12:30 PM EDT Office Visit Adult Medicine [address] [phone] Douglas Aguero PA [address] [place] [phone] Health Maintenance Due Date Last Done Comments RSV Immunization Adult Patients (1 - 1-dose 75+ series) 2019 Hepatitis B Vaccines (2 of 3 - 19+ 3-dose series) 07/03/2023 06/05/2023 COVID-19 Vaccine (7 - Pfizer risk season) 2026 08/13/2025, 08/14/2024, 09/19/2023, Additional history exists Hypertension/CHF/CAD Annual BMP Blood Test 09/27/2026 09/27/2025, 03/25/2025, 12/18/2024, Additional history exists Falls Risk Assessment 10/13/2026 10/13/2025 , 10/13/2025, 09/25/2024 Social Influencers of Health Screening 10/13/2026 10/13/2025 DTaP,Tdap,and Td Vaccines (3 - Td or Tdap) 09/08/2029 09/08/2019, 06/04/2008 Cholesterol Screening (Lipid Panel) 09/27/2030 09/27/2025, 03/25/2025, 09/21/2024, Additional history exists Pneumococcal Vaccine: 50+ Years Completed 12/28/2014, 03/02/2011 Zoster Vaccines Completed 06/05/2023, 02/2023, 12/25/2012 Influenza Vaccine Completed 08/13/2025, , 07/09/2024, Additional history exists Depression Screening Completed 10/13/2025 Colorectal Cancer Screening: Stool Based Tests (FOBT/FIT) [...] Procedure Name Priority Date/Time Associated Diagnosis Comments ECG 12-LEAD Routine 10/13/2025 2:10 PM EST Bradycardia CBC WITH AUTO DIFFERENTIAL Routine 09/27/2025 8:59 [...] unspecified whether stage 3a or 3b CKD ([facility] V24, [facility] V28) Benign prostatic hyperplasia with lower urinary tract symptoms, symptom details unspecified Erectile dysfunction Anxiety CBC AND DIFFERENTIAL Routine 09/27/2025 8:59 AM EST Secondary hypertension Stage 3 chronic kidney disease, unspecified whether stage 3a or 3b CKD (CMS/[facility] V24, CMS/[facility] V28) Benign prostatic hyperplasia with lower urinary tract symptoms, symptom details unspecified Erectile dysfunction Anxiety from Last 3 Months Results * ECG 12 lead (10/13/2025 2:10 PM EST) us Douglas HERMAN ECG ORDERABLES Final Res ult * (ABNORMAL) Lipid panel with reflex to [...] EST Douglas HERMAN LAB BLOOD ORDERABLES Lyly l Result [facility] [address] [place] [address], [place] [phone] * Prostate specific antigen diagnostic (09/27/2025 8:59 AM EST) [facility] PSA 1.31 0.00 - 4.00 ng/mL 09/27/2025 1:47 PM EST [facility] Blood Venous blood specimen / Unknown Venipuncture / Unknown 09/27/2025 8:59 AM EST 09/27/2025 8:59 AM EST Douglas HERMAN LAB BLOOD ORDERABLES Lyly l Result Performing Organization Address City/[facility]/ZIP Co de Phone Number [facility] [address] [place] [address], [place] [phone] * (ABNORMAL) CBC auto differential (09/27/2025 8:59 AM EST) [facility] WBC 6.9 4.8 - 10.8 K/mcL LAB HEMETOLOGY METHOD 09/27/2025 10:33 AM [facility] RBC 5.40 4.50 - 5.50 M/[facility] HEMETOLOGY METHOD 09/27/2025 10:33 AM [facility] [...] LAB Neutrophils Absolute 4.25 1.50 - 7.00 K/[facility] HEMETOLOGY METHOD 09/27/2025 10:33 AM EST [facility] Lymphocytes Absolute 1.45 1.00 - 5.00 K/[facility] HEMETOLOGY METHOD 09/27/2025 10:33 AM [facility] Monocytes Absolute 0.84 0.20 - 1.00 K/[facility] HEMETOLOGY METHOD 09/27/2025 10:33 AM EST [facility] Eosinophils Absolute 0.25 0.00 - 0.50 K/[facility] HEMETOLOGY METHOD 09/27/2025 10:33 AM EST [facility] Basophils Absolute 0.07 0.00 - 0.20 K/[facility] HEMETOLOGY METHOD 09/27/2025 10:33 AM [facility] Immature Granulocytes Absolute 0.02 0.00 - 0.03 K/[facility] HEMETOLOGY METHOD 09/27/2025 10:33 AM [facility] Blood Venous blood specimen / Unknown Venipuncture / Unknown 09/27/2025 8:59 AM EST 09/27/2025 8:59 AM EST Douglas HERMAN LAB BLOOD ORDERABLES Lyly l Result [facility] [address] [place] [address], * Vitamin D 25 hydroxy (09/27/2025 8:59 AM EST) Vit D, 25-Hydroxy 43.3 30.0 - 80.0 ng/mL 09/27/2025 1:51 PM EST [facility] Blood Venous blood specimen / Unknown Venipuncture / Unknown 09/27/2025 8:59 AM EST 09/27/2025 8:59 AM EST Douglas HERMAN LAB BLOOD ORDERABLES Lyly l Result [facility] [address] [place] [address], * (ABNORMAL) Comprehensive metabolic panel (09/27/2025 8:59 [...] 10 - 60 unit/L 09/27/2025 2:02 PM EST [facility] Alkaline Phosphatase 66 42 - [...] HERMAN LAB BLOOD ORDERABLES Lyly jerome Result [facility] [address] [place] [address], from Last 3 Months Insurance [facility] Care Teams Keeler Polygraph Operator Relationship Specialty Start Date End Date Douglas Aguero PA [address] [place] [address] PCP - General Internal Medicine 12/28/20
--- OUTSIDE RECORDS SUMMARY | 2025-10-21 16:17 | XMS_ITS | Patient Health Record ---
Author Organization [facility] Address [address] [place] [address] Care Team Providers Care Fishing Accessories Maker Name Role Phone Douglas Rashid Primary Care Provider Unav ailable Hakeem Ordonez Unavailable [phone] Cecy Pike Unavailable [phone] Allergies Allergen (clinical drug ingredient) Drug/Non Drug Allergy documented on EMR Reaction Allergy Type Onset Date Status poision citlali (uncoded) hay fever Allergy Active Reason For Referral No Information Medications Medication SIG (Take, Route, Frequency, Duration) Notes Start Date End Date Status LORazepam 0.5 MG as directed Orally Not-Taking Ammonium Lactate 12 % 1 application Externally to affected areas of dry skin to feet except for between the toes Twice a day; Duration: 30 days Active Lisinopril 40 MG 1 tablet Orally Active hydroCHLOROthiazide 12.5 MG as directed Orally Active Custom Orthotics as directed 06/08/2024 Active Metoprolol Succinate ER 50 MG 1 tablet Oral Active Aspirin 81 MG as directed Orally Active NIFEdipine Active Immunizations Vaccine Route Administration Date Status Comme nts Influenza Unknown 07/09/2024 Administered COVID-19 Pfizer BioNTech Vaccine Unknown 10/17/2021 Administered [...] atherosclerosis of arteries of lower limbs (disorder) ([id number] ) Atherosclerosis of [place] artery of both lower extremities, with unspecified presence of clinical manifestation (I70.203) Active confirmed Q7(A), Q8(2B), Q9(1B,2 C) Vital Signs Blood pressure diastolic 65 mm Hg 07/27/2025 Height 6ft 2in in 07/27/2025 Blood pressure systolic 134 mm Hg 07/27/2025 Weight 218 lbs 07/27/2025 BMI 27.99 kg/m2 07/27/2025 Procedures Procedure Date Ordered Date Performed Result Body Sit e 06237-EOBZVUL NAIL, 6 OR MORE 01/08/2025 N/A 70221-HXXD SKIN LESIONS, OVER 4 01/08/2025 N/A 29326-KGMRMXX NAIL, 6 OR MORE 04/09/2025 N/A 00567-NWJL SKIN LESIONS, OVER 4 04/09/2025 N/A 12324-WFVIEWS NAIL, 6 OR MORE 07/27/2025 N/A 01871-RSSA SKIN LESIONS, OVER 4 07/27/2025 N/A Encounters Encounter Location Date Provider Diagnosis [address] [phone] 01/08/2025 Hakeemguilherme HeinJosé Luis Atherosclerosis of [place] artery of both lower extremities, with unspecified presence of clinical manifestation I70.203 ; Tinea unguium B35.1 ; Pain in right toe(s) M79.674 ; Pain in left toe(s) M79.675 and Xerosis of skin L85.[address] [address] 04/09/2025 Hakeem José Luis Atherosclerosis of [place] artery of both lower extremities, with unspecified presence of clinical manifestation I70.203 ; Tinea unguium B35.1 ; Pain in right toe(s) M79.674 and Pain in left toe(s) M79.[address] [phone] 07/27/2025 Hakeem José Luis Atherosclerosis of [place] artery of both lower extremities, with unspecified presence of clinical manifestation I70.203 ; Tinea unguium B35.1 ; Pain in right toe(s) M79.674 ; Pain in left toe(s) M79.675 and Muscle cramp, nocturnal R25.2 Assessments Encounter Date Diagnosis (ICD Code) Assessment Notes Treatment Notes Treatment Clinical Notes Section Notes 01/08/2025 Tinea unguium (ICD-10 - B35.1) 01/08/2025 Atherosclerosis of [place] artery of both lower extremities, with unspecified presence of clinical manifestation (ICD-10 - I70.203) Q7(A), Q8(2B), Q9(1B,2C) 04/09/2025 Tinea unguium (ICD-10 - B35.1) 04/09/2025 Atherosclerosis of [place] artery of both lower extremities, with unspecified presence of clinical manifestation (ICD-10 - I70.203) Q7(A), Q8(2B), Q9(1B,2C) 07/27/2025 Tinea unguium (ICD-10 - B35.1) 07/27/2025 Atherosclerosis of [place] artery of both lower extremities, with unspecified presence of clinical manifestation (ICD-10 - I70.203) Q7(A), Q8(2B), Q9(1B,2C) 04/09/2025 Pain in right toe(s) (ICD-10 - M79.674) 07/27/2025 Pain in right toe(s) (ICD-10 - M79.674) 01/08/2025 Pain in right toe(s) (ICD-10 - M79.674) 01/08/2025 Pain in left toe(s) (ICD-10 - M79.675) 07/27/2025 Pain in left toe(s) (ICD-10 - M79.675) 04/09/2025 Pain in left toe(s) (ICD-10 - M79.675) 01/08/2025 Xerosis of skin (ICD-10 - L85.3) 07/27/2025 Muscle cramp, nocturnal (ICD-10 - R25.2) Plan Of Treatment Pending Test Test Name Order Date X ray : Foot, left 3V 01/29/2022 X ray : Foot, right 3V 03/24/2020 93236-SGFRZVU NAIL, 6 OR MORE 07/27/2025 89498-XEWFJYV NAIL, 6 OR MORE 10/14/2024 73781-DFLMCEC NAIL, 6 OR MORE 01/08/2025 13513-TXVPGRM NAIL, 6 OR MORE 04/09/2025 69986 I&D ABSCESS- SIMPLE,SINGLE 022 52515-GLZN SKIN LESIONS, OVER 4 10/14/20 24 20913-FEXO SKIN LESIONS, OVER 4 04/09/20 25 08581-ZCNG SKIN LESIONS, OVER 4 01/09/20 25 78515-WVFQ SKIN LESIONS, OVER 4 07/27/20 25 Next Appt Details Provider Name:Hakeem Teofilo Ordonez , 11/11/2025 02:45:00 PM, [address] [facility], [facility] [address], [place], [address], Insurance Providers Payer Name Payer Address Payer Phone Subscriber Number Group Number Insured Name Patient Relationship to Insured Coverage Start Date Coverage End Date [facility] ([facility]) [address] [place] [address] [id number] [facility] Obinna Phan Self - patient is the insured Medical (General) History Medical History History ICD Code Anxiety Arthritis Back,Hip,and Knee pain Depression Hiatal hernia High blood pressure Sciatica Warts Measles Mumps Chicken pox Transfusions Kidney disease- stage 3 Kidney disease Surgical History Surgery Date(Month/Year) mitral valve repair 2011
--- OUTSIDE RECORDS SUMMARY | 2025-10-21 16:17 | XMS_ITS | Encounter Summary ---
Author Organization [facility] Address [address] [place] [address] Care Team Providers Care Quality Technician Fiberglass Name Role Phone Douglas Aguero Primary Care Provider [phone] Encounter Details Date Type Department Care Team ([facility] st Contact Info) Description 10/18/2025 Telephone Adult Medicine [address] [phone] Douglas Aguero PA [address] [place] [phone] Social History Tobacco Use Types Packs/Day Years [...] care for your loved ones. For example, director child or elderly care for an older adult? [...] AM EST documented as of this encounter Progress Notes * Latonya Grace MA - 10/20/2025 8:34 AM EST Pt replying to mychart documented in this encounter Plan of Treatment Upcoming Encounters Date Type Department Care Team (Late st Contact Info) Description 12/30/2025 1:15 PM EST Office Visit Nephrology - [address] [phone] Rahul Tejeda MD [address] [phone] 04/13/2026 12:30 PM EDT Office Visit Adult Medicine East - [address] [phone] Douglas Aguero PA [address] [place] [phone] documented as of this encounter Visit Diagnoses Not on filedocumented in this encounter Additional Health Concerns Assessment Noted Time PHQ-9 Depression Total Score: 0 10/13/20 25 12:40 PM EST A fall risk assessment has been complete d for the patient 10/13/2025 12:40 PM EST documented as of this encounter Care Teams Quality Technician Fiberglass Relationship Specialty Start Date End Date Douglas Aguero PA [address] [place] [address] PCP - General Internal Medicine 12/28/20 documented as of this encounter
== END ==
LOC: HO.CARD 12:28
PROVIDERS: Visit Provider Nurse Practitioner Family
DX: I44.1 Atrioventricular block, second degree (principal)
CPT/HCPCS: 93242

== ENCOUNTER → 2025-10-21 12:31 | Outpatient (BNV) | payer OTHER, SELFPAY | PROVIDERS: Visit Provider Internal Medicine | DX: I44.1 Atrioventricular block, second degree (principal) | CPT/HCPCS: 93244 ==